=== PATIENT | female | born 1990 | race Caucasian/White ===

== ENCOUNTER 2021-05-23 09:38 | Emergency (ER) | payer BC, SELFPAY ==
[2021-05-23] MEDS ORDERED: MORPHINE 4 MG/ML SYR ONE (10:15)
[2021-05-23] MEDS ORDERED: ONDANSETRON 4 MG/2 ML VIAL ONE (10:15)
[2021-05-23 10:34] LABS: Absolute Lymphocytes (CBC) 1.3 K/uL (0.7-4.9); Basophils % 0.3 % (0-1.3); Hematocrit 40.8 % (36.0-45.0); Lymphocytes % 13.5 % (15.3-44.8); MPV 9.7 fL (7.6-11.3); RBC Red Blood Cell Count 4.46 M/uL (3.86-4.86)
--- NOTE | 2021-05-23 11:10 | RAD REPORT ---
EXAM DESCRIPTION: CTStone Protocol - 05/23/2021 10:51 am CLINICAL HISTORY: abd pain COMPARISON: Abdomen Pelvis W Contrast dated 01/12/2017 TECHNIQUE: CT of the abdomen and pelvis was performed. All CT scans are performed using dose optimization technique as appropriate and may include automated exposure control or mA/KV adjustment according to patient size. FINDINGS: Lower chest: No acute abnormality. Liver: No acute abnormality or suspicious lesions. Biliary: No biliary ductal dilatation. Stomach: No significant focal abnormality. Duodenum: No significant focal abnormality. Pancreas: No significant abnormality. Spleen: No significant abnormality. Adrenal: No suspicious lesions. Kidney/ureter: Mild right-sided hydronephrosis secondary to a 3 mm stone in the right proximal ureter . Other punctate stones are present in the right kidney. Retroperitoneum: No retroperitoneal adenopathy. Vascular: No aneurysm. Bowel: No significant focal abnormality. Peritoneum: No ascites or free air. Bladder: Grossly unremarkable. Reproductive: No adnexal masses. Bones: No acute fracture. Other: n/a IMPRESSION: Mild right-sided hydronephrosis secondary to a 3 mm stone in the right proximal ureter.
[2021-05-23 11:21] LABS: Urine Bacteria <20 /HPF (<20); Urine RBC LOADED /HPF (NONE SEEN)
[2021-05-23] MEDS ORDERED: KETOROLAC 30 MG/ML INJ ONE (11:48)
[2021-05-23] MEDS ORDERED: TAMSULOSIN 0.4 MG SR CAP ONE (11:48)
[2021-05-23] MEDS ORDERED: MAGNESIUM SULFATE 1 gm IVPB 1 GM/100 ML BAG IV ONE (11:49)
[2021-05-23] MEDS ORDERED: NA CHLORIDE 0.9% 250 ML ONE (11:49)
[2021-05-23 12:00] LABS: Albumin 3.6 g/dL (3.4-5.0); Bilirubin Direct 0.2 mg/dL (0-0.2); Bilirubin Total 0.5 mg/dL (0.2-1.0); Potassium 3.3 mmol/L (3.5-5.1); Protein, Total 7.4 g/dL (6.4-8.2)
[2021-05-23] MEDS ORDERED: PROMETHAZINE INJ 25 MG/ML AMP ONE (13:07)
[2021-05-23] MEDS ORDERED: NA CHLORIDE 0.9% 500 ML ONE (14:19)
--- NOTE | 2021-05-23 14:43 | ER ---
Nurse's Notes [facility] Name: Karen Juan Age: 30 yrs Sex: Female : 1990 Arrival Date: 05/23/2021 Time: 09:44 Bed 6 Private MD: Diagnosis: Calculus of ureter;Abdominal pain, unspecified Presentation: 05/23 09:54 Chief complaint: Patient states: Pt. brought by EMS due to severe right lower abdominal jt3 pain that started last night. Pt. also just started her period. Pt. still has appendix. Denies SOB, chest pain, or significant bleeding. Pt. feels nauseated. Alert and oriented x4 on arrival. Coronavirus screen: Vaccine status: Patient reports being unvaccinated. Ebola Screen: Patient negative for fever greater than or equal to 101.5 degrees Fahrenheit, and additional compatible Ebola Virus Disease symptoms Patient denies exposure to infectious person. Patient denies travel to an Ebola-affected area in the 21 days before illness onset. Initial Sepsis Screen: Does the patient meet any 2 criteria? No. Patient's initial sepsis screen is negative. Does the patient have a suspected source of infection? No. Patient's initial sepsis screen is negative. Risk Assessment: Do you want to hurt yourself or someone else? Patient reports no desire to harm self or others. Onset of symptoms was May 22, 2021. 09:54 Method Of Arrival: EMS: [facility] jt3 09:54 Acuity: LUL 3 jt3 10:55 Chief complaint:. jt3 Triage Assessment: 09:57 General: Appears uncomfortable, Behavior is restless. Pain: Complains of pain in jt3 abdomen Radiates to back. GI: Abdomen is tender to palpation in right lower quadrant. 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 - Social history:: Smoking status: Patient denies any tobacco usage or history of. - Family history:: not pertinent. - Hospitalizations: : No recent hospitalization is reported. Screenin:00 Abuse screen: Denies threats or abuse. Denies injuries from another. Nutritional jt3 screening: No deficits noted. Tuberculosis screening: No symptoms or risk factors identified. Fall Risk None identified. Assessment: 09:59 Cardiovascular: No deficits noted. Respiratory: No deficits noted. GI: Reports lower jt3 abdominal pain, Right lower abdominal pain 10/10 that started last night. Alert and oriented x4. 10:17 Reassessment: Pt. got up to commode to urinate and unable to urinate at this time. . jt3 11:47 Reassessment: Patient's pain has improved significantly. Alert and oriented x4. Patient jt3 has been on Telemetry and O2 monitoring. . 14:41 Reassessment: Patient resting comfortably and no longer feels nauseated. . jt3 Vital Signs: 09:54 BP 110 / 61; Pulse 73; Resp 21; Temp 96.5; Pulse Ox 100% on R/A; Weight 86.18 kg; jt3 Height 5 ft. 6 in. (167.64 cm); 10:19 BP 122 / 71; Pulse 62; Resp 16; Pulse Ox 98% on R/A; jt3 11:46 BP 105 / 77; Pulse 61; Resp 18; Pulse Ox 98% on R/A; jt3 14:41 BP 126 / 75; Pulse 67; Resp 17; Pulse Ox 100% on R/A; jt3 09:54 Body Mass Index 30.67 (86.18 kg, 167.64 cm) jt3 ED Course: 09:44 Patient arrived in ED. rn 09:44 Jackson Santos MD is Attending Physician. rn 09:46 Antony Lawson RN is Primary Nurse. jt3 09:49 Patient has correct armband on for positive identification. Bed in low position. Call mh5 light in reach. Side rails up X2. Warm blanket given. policy specialist on. Pulse ox on. NIBP on. 09:57 Triage completed. jt3 09:57 Emesis basin given. jt3 10:00 No provider procedures requiring assistance completed. jt3 10:00 Inserted saline lock: 20 gauge in right antecubital area, using aseptic technique. jt3 14:57 IV discontinued. jt3 Administered Medications: 09:53 Drug: morphine 4 mg Route: IVP; Site: left antecubital; jt3 10:08 Follow up: Response: No adverse reaction jt3 10:08 Follow up: Response: No adverse reaction; Pain is decreased jt3 09:53 Drug: Zofran (Ondansetron) 4 mg Route: IVP; Site: right antecubital; jt3 10:33 CANCELLED ( canceledd): NS 0.9% 500 ml IV at bolus once ch5 11:40 Drug: Magnesium Sulfate 1 grams Route: IVPB; Infused Over: 1 hrs; Site: right jt3 antecubital; 12:51 Follow up: Response: No adverse reaction; IV Intake: 100ml jt3 11:40 Drug: Flomax (tamsulosin) 0.4 mg Route: PO; jt3 11:40 Drug: Ketorolac 30 mg Route: IVP; Site: right antecubital; jt3 12:50 Drug: Phenergan (promethazine) 12.5 mg Route: IVP; Site: right antecubital; jt3 13:56 Drug: NS 0.9% 500 ml Route: IV; Rate: bolus; Site: right antecubital; jt3 Intake: 12:51 IV: 100ml; Total: 100ml. jt3 Outcome: 14:42 Discharge ordered by . rn 14:57 Discharged to home ambulatory. jt3 14:57 Condition: good 14:57 Discharge instructions given to patient. 15:01 Patient left the ED. jt3 Signatures: Jackson Santos MD MD rn Martinez, Maria [facility] Antony Lawson RN RN j Howie Reed RN [facility]
--- NOTE | 2021-05-23 14:43 | EDPHYS ---
Physician Documentation [facility] Name: Karen Juan Age: 30 yrs Sex: Female : 1990 Arrival Date: 05/23/2021 Time: 09:44 Bed 6 Private MD: ED Physician Jackson Santos HPI: 05/23 09:45 This 30 yrs old Female presents to ER via Unassigned with complaints of rn Abdominal pain. 09:45 The patient presents with abdominal pain right lower quadrant, Right lower back. Onset: rn The symptoms/episode began/occurred just prior to arrival. The symptoms do not radiate. Associated signs and symptoms: Pertinent positives: nausea, Pertinent negatives: blood in stools, chest pain, constipation, diarrhea, dysuria, fever, shortness of breath, vaginal discharge, vomiting blood. The symptoms are described as sharp. The symptoms are described as intermittent. Modifying factors: The symptoms are alleviated by nothing. Modifying factors: the symptoms are aggravated by nothing. Severity of pain: At its worst the pain was moderate in the emergency department the pain is unchanged. The patient has not experienced similar symptoms in the past. The patient has not recently seen a physician. Patient reports right lower quadrant and right flank pain as well as right lower back pain that began today, associated with nausea, intermittent and sharp, cannot get comfortable. No history of kidney stones. Does have history of ovarian cysts. Currently on menstrual period. No fever. Went to bed fine last night without any problem.. 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 - Social history:: Smoking status: Patient denies any tobacco usage or history of. - Family history:: not pertinent. - Hospitalizations: : No recent hospitalization is reported. ROS: 09:45 Constitutional: Negative for fever, chills, and weight loss, Eyes: Negative for injury, rn pain, redness, and discharge, Neck: Negative for injury, pain, and swelling, Cardiovascular: Negative for chest pain, palpitations, and edema, Respiratory: Negative for shortness of breath, cough, wheezing, and pleuritic chest pain, Abdomen/GI: Positive for right lower quadrant pain and nausea Back: Positive for right lower back pain : Negative for injury, bleeding, discharge, and swelling, MS/Extremity: Negative for injury and deformity, Skin: Negative for injury, rash, and discoloration, Neuro: Negative for headache, weakness, numbness, tingling, and seizure. 09:45 All other systems are negative. Exam: 09:45 Constitutional: This is a well developed, well nourished patient who is awake, alert, rn appears uncomfortable and rocking back and forth constantly changing position Head/Face: Normocephalic, atraumatic. Eyes: Periorbital areas with no swelling, redness, or edema. Cardiovascular: Regular rate and rhythm. No pulse deficits. Respiratory: No increased work of breathing, no retractions or nasal flaring. Abdomen/GI: Soft, nontender, no peritoneal signs, no abdominal distention Back: No spinal tenderness. No costovertebral tenderness. Full range of motion. Skin: Warm, dry with normal turgor. Normal color with no rashes, no lesions, and no evidence of cellulitis. MS/ Extremity: Pulses equal, no cyanosis. Neurovascular intact. Full, normal range of motion. Equal circumference. Neuro: Awake and alert, GCS 15, oriented to person, place, time, and situation. Vital Signs: 09:54 BP 110 / 61; Pulse 73; Resp 21; Temp 96.5; Pulse Ox 100% on R/A; Weight 86.18 kg; jt3 Height 5 ft. 6 in. (167.64 cm); 10:19 BP 122 / 71; Pulse 62; Resp 16; Pulse Ox 98% on R/A; jt3 11:46 BP 105 / 77; Pulse 61; Resp 18; Pulse Ox 98% on R/A; jt3 14:41 BP 126 / 75; Pulse 67; Resp 17; Pulse Ox 100% on R/A; jt3 09:54 Body Mass Index 30.67 (86.18 kg, 167.64 cm) jt3 MDM: 09:44 Patient medically screened. rn 11:20 ED course: Patient with 3 mm proximal right ureteral stone. Feels better but pain still rn moderate. Will give kidney stone specific therapy now and continue to observe in the ER.. 13:39 ED course: Patient feels better pain down to a 4 or 5 we will give IV fluids and rn continue to observe here given first kidney stone.. 14:41 Differential diagnosis: appendicitis, non-specific abd pain, Ureterolithiasis, urinary rn tract infection. Data reviewed: vital signs, nurses notes, lab test result(s), radiologic studies, CT scan, and as a result, I will discharge patient. Counseling: I had a detailed discussion with the patient and/or guardian regarding: the historical points, exam findings, and any diagnostic results supporting the discharge/admit diagnosis, lab results, radiology results, the need for outpatient follow up, to return to the emergency department if symptoms worsen or persist or if there are any questions or concerns that arise at home. Response to treatment: the patient's symptoms have markedly improved after treatment, and as a result, I will discharge patient. Special discussion: Based on the patient's Hx, exam, and Dx evaluation, there is no indication for emergent surgery or inpatient Tx. It is understood by the patient/guardian that if the Sx's persist or worsen they need to return immediately for re-evaluation. I discussed with the patient/guardian in detail that at this point there is no indication for admission to the hospital. It is understood, however, that if the symptoms persist or worsen the patient needs to return immediately for re-evaluation. ED course: Patient markedly improved, requests to be discharged home. Return precautions given and understood.. 05/23 10:35 Order name: CBC with Automated Diff; Complete Time: 11:20 [facility] 05/23 09:44 Order name: CT Stone Protocol 05/23 11:10 Order name: CT; Complete Time: 11:20 [facility] 05/23 11:22 Order name: Urine Microscopic Only; Complete Time: 12:36 [facility] 05/23 12:00 Order name: Basic Metabolic Panel; Complete Time: 12:36 [facility] 05/23 12:00 Order name: Liver (Hepatic) Function; Complete Time: 12:36 [facility] 05/23 12:00 Order name: Lipase; Complete Time: 12:36 [facility] 05/23 09:44 Order name: IV Saline Lock; Complete Time: :50 rn 05/23 09:44 Order name: Labs collected and sent; Complete Time: :50 05/23 09:44 Order name: Urine Dipstick-Ancillary (obtain specimen); Complete Time: 10:44 rn 05/23 09:44 Order name: Urine Test (obtain specimen); Complete Time: :44 rn 05/23 10:25 Order name: Labs - recollect needed: recollect all labs; Complete Time: 10:44 bd 05/23 11:15 Order name: Labs - recollect needed: recollect c7; Complete Time: 11:41 bd Administered Medications: 09:53 Drug: morphine 4 mg Route: IVP; Site: left antecubital; jt3 10:08 Follow up: Response: No adverse reaction jt3 10:08 Follow up: Response: No adverse reaction; Pain is decreased jt3 09:53 Drug: Zofran (Ondansetron) 4 mg Route: IVP; Site: right antecubital; jt3 10:33 CANCELLED (MD he): NS 0.9% 500 ml IV at bolus once ch5 11:40 Drug: Magnesium Sulfate 1 grams Route: IVPB; Infused Over: 1 hrs; Site: right jt3 antecubital; 12:51 Follow up: Response: No adverse reaction; IV Intake: 100ml jt3 11:40 Drug: Flomax (tamsulosin) 0.4 mg Route: PO; jt3 11:40 Drug: Ketorolac 30 mg Route: IVP; Site: right antecubital; jt3 12:50 Drug: Phenergan (promethazine) 12.5 mg Route: IVP; Site: right antecubital; jt3 13:56 Drug: NS 0.9% 500 ml Route: IV; Rate: bolus; Site: right antecubital; jt3 Disposition Summary: 05/23/21 14:42 Discharge Ordered Location: Home rn Problem: new rn Symptoms: have improved rn Condition: Stable rn Diagnosis - Calculus of ureter rn - Abdominal pain, unspecified rn Followup: rn - With: Private Physician - When: As needed - Reason: Recheck today's complaints, Re-evaluation by your physician Discharge Instructions: - Discharge Summary Sheet rn - Abdominal Pain, Adult rn - Kidney Stones rn - Renal Colic rn - Dietary Guidelines to Help Prevent Kidney Stones rn Forms: - Medication Reconciliation Form rn - Thank You Letter rn - Antibiotic all around patternmaker - Prescription Opioid Use rn Prescriptions: - Flomax 0.4 mg Oral capsule - take 1 capsule by ORAL route once daily Stop taking once you feel that you have rn passed your kidney stone.; 3 capsule; Refills: 0, Product Selection Permitted - ondansetron 4 mg Oral tablet,disintegrating - place 1 tablet by TRANSLINGUAL route every 8 hours As needed; 15 tablet; rn Refills: 0, Product Selection Permitted - Tylenol-Codeine #3 300 mg-30 mg Oral - take 1 tablet by ORAL route every 6-8 hours As needed; 15 tablet; Refills: 0, rn Product Selection Permitted Signatures: Dispatcher [employer] Herlinda Thomason Roman, MD MD rn Tejchmjohn, JOHN PAUL Hardy RN jt3 Howie Reed RN ch5 Corrections: (The following items were deleted from the chart) 10:33 10:31 NS 0.9% 500 ml IV at bolus once ordered. rn ch5
[2021-05-23 15:05] VITALS: TEMP 96.5
[2021-05-23 15:08] VITALS: BP 126/75; O2SAT 100
== END 2021-05-23 15:01 | disposition home or self-care (01) ==
LOC: ER 09:38
DX: N20.1 Calculus of ureter (principal); Z88.0 Allergy status to penicillin
CPT/HCPCS: 36415; 74176; 76377; 80048; 80076; 81015; 83690; 85025; 87086; 87088; 99284; J2405; J2550; J3475; J7040; J7050

== ENCOUNTER 2022-08-15 16:04 | Emergency (ER) | payer OTHER ==
--- OUTSIDE RECORDS SUMMARY | 2022-08-15 16:08 | XMS REPORT | Continuity of Care Document ---
:1990 Author Organization [facility] t Address [address] [place] [address] Care Team Providers Name Role Phone Pcp, Patient Does Not Have A Primary Care Physician +[id number] DIVYA Attending Clinician Unavailable ANNA KILPATRICK Attending Clinician Unavailable Anna Otto Attending Clinician Casper Attending Clinician Unavailable DIVYA Admitting Clinician Unavailable Casper Admitting Clinician Unavailable Payers Payer Name Policy Type Policy Number Effective Date Expiration Date S ource Problems Condition Condition Condition Status Onset Resolution Last Treating Co mments Source Name Details Category Date Date Treatment Clinician Date Contracept Contracept Problem Active M atagor ion using ion Using 1-15 da injectable Injectable 00:00: Me dical contracept Contracept 00 Gr oup lubna lubna medication Medication Contracept Contracept Disease Active U nivers lubna lubna 2-19 ity of management management 00:[place] [facility] BV BV Disease Active Univers (bacterial (bacterial 2-19 it y of vaginosis) vaginosis) 00:[place] [facility] Pain Pain Disease Active Univers pelvic pelvic 2-19 ity of 00:00: [place] [id number] Medical Branch Elevated Elevated Disease Active Unive rs blood blood 2-19 ity of pressure pressure 00:00: [place] reading reading 00 Medical without without Branch diagnosis diagnosis of of hypertensi hypertensi on on Overweight Overweight Disease Active Overview : Univers 11-03 Formattin ity of 00:00: g of this [place] 00 note Medical might be Branch different from the original. 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 Utility Abnormal Abnormal Disease Active Unive rs bleeding bleeding 11-03 ity of in in 00:00: [place] menstrual menstrual 00 [facility] cycle cycle Branch Allergies, Adverse Reactions, Alerts Allergy Allergy Status Severity Reaction(s) Onset Inactive Treating Comm ents Source Name Type Date Date Clinician PENICILL Drug Active Anaphylaxis Uni vers INS Class 11-03 ity of 00:00: [place] 00 Medical Branch Penicill Propensi Active Anaphylaxis U nivers ins ty to 11-03 ity of adverse 00:00: [place] reaction 00 Medical s Branch PENICILL Allergy Active Severe Anaphylaxis [place] INS to da [facility] Medical e Group Social History Social Habit Start Date Stop Date Quantity Comments Source Exposure to 2022-02-01 2022-02-11 Not sure [facility]-CoV-2 00:00:00 10:47:00 [facility] (event) Branch Alcohol intake 2022-02-11 2022-02-11 Current [facility] 00:00:00 00:00:00 non-drinker of [facility] alcohol (finding) [place] Tobacco use and 2013-11-03 2013-11-03 Smokeless tobacco Un iversity of exposure 00:00:00 00:00:00 non-user [facility] Sex Assigned At [birth year] Universit y of 00:00:00 00:00:00 [facility] Smoking Status Start Date Stop Date Source Never smoked tobacco [facility] Medications Ordered Filled Start Stop Current Ordering Indication Dosage Frequency Signature Comments Components Source Medication Medication Date Date Medication? Clinician (SIG) Name Name medroxyprog medroxyprog No medroxypro [place] esterone esterone 1-15 gesterone da 150 mg/mL 150 mg/mL 16:53: 150 mg/mL Medical intramuscul intramuscul 19 intramuscu Group ar ar lar suspensionI suspensionI suspension nject 1 mL nject 1 mL Inject 1 every 3 every 3 mL every 3 months by months by months by intramuscul intramuscul intramuscu ar route. ar route. lar route. ondansetron Yes 4mg Take 1 Univ ers 4 mg tablet 9-25 tablet by ity of 00:00: mouth [place] 00 every 8 Medical (eight) [place] hours as needed for Nausea and Vomiting (N/V). metroNIDAZO Yes [id number] 500mg Take 1 Tab Univers LE (FLAGYL) 2-19 by mouth 2 it y of 500 mg 00:00: (two) [place] tablet 00 times Medical daily. Branch norgestimat Yes [id number] 1{tbl} Take 1 Tab Univers e-ethinyl 2-19 by mouth ity of estradiol 00:00: daily. [place] (ORTHO 00 Medical TRI-CYCLEN Branch LO, 28,) 0.18/0.215 mg/ 0.25 mg-25 mcg tablet Hair, Skin Hair, Skin No Hair, Skin [place] and Nails and Nails and Nails da Advanced Advanced Advanced Med ical one daily one daily one daily Group medroxyprog medroxyprog No 1mL medroxypro [place] esterone esterone gesterone da 150 mg/mL 150 mg/mL 150 mg/mL Medical intramuscul intramuscul intramuscu Group ar ar lar suspension suspension suspension Inject 1 mL Inject 1 mL Inject 1 every 3 every 3 mL every 3 months by months by months by intramuscul intramuscul intramuscu ar route. ar route. lar route. One-A-Day One-A-Day No One-A-Day [place] Womens Womens Womens da Formula one Formula one Formula Medical daily daily one daily Group Immunizations Ordered Filled Immunization Date Status Comments [facility] e Immunization Name Name Rubella 2010-02-13 Completed [place] of 00:00:00 [facility] Td 2006-07-28 Completed [facility] 00:00:00 [facility] Vital Signs Vital Name Observation Time Observation Value Comments Source Oxygen saturation in 2022-02-11 15:48:00 99 /min [facility] Arterial blood by [facility] Pulse oximetry Branch Systolic blood 2022-02-11 14:52:00 128 mm[Hg] Univer sity of pressure [facility] Diastolic blood 2022-02-11 14:52:00 80 mm[Hg] Unive rsity of pressure [facility] Heart rate 2022-02-11 14:52:00 75 /min [facility] [place] [facility] Body temperature 2022-02-11 14:52:00 36.17 [facility] Respiratory rate 2022-02-11 14:52:00 16 /min [facility] Body height 2022-02-11 14:52:00 170.2 cm [facility] Body weight 2022-02-11 14:52:00 92.534 kg [facility] BMI 2022-02-11 14:52:00 31.95 kg/m2 [facility] BP Diastolic 2018-08-11 00:00:00 73 mm[Hg] [facility] Height 2018-08-11 00:00:00 67 [in_i] [facility] BMI (Body Mass 2018-08-11 00:00:00 24.4 kg/m2 [facility]) Group BP Systolic 2018-08-11 00:00:00 122 mm[Hg] [facility] Body Weight 2018-08-11 00:00:00 156 [lb_av] [facility] Procedures Procedure Date / Time Performed Performing Clinician Sour e POCT TEST 2022-02-11 15:20:00 Anna Kilpatrick [facility] CONSENT/REFUSAL FOR 2022-02-11 14:44:37 Doctor Unassigned, No Un [facility] DIAGNOSIS AND Name [facility] TREATMENT Plan of Care Planned Activity Planned Date Details Comments Source Diagnostic Test 2018-08-11 urinalysis, [place] [facility] Pending 00:00:00 dipstick [code = Group urinalysis, dipstick] Diagnostic Test 2018-08-11 test, [place] [facility] Pending 00:00:00 urine [code = Group test, urine] Encounters Start End Encounter Admission Attending Care Care Encounter Source Date/Time Date/Time Type Type Clinicians Facility Department ID 2022-02-22 2022-02-22 Outpatient ETHEL OLIVA [id number] [place] 00:00:00 00:00:00 [facility] 2022-02-11 2022-02-11 Emergency X SIMÓN KILPATRICK [id number] 04 Univers 09:53:00 10:58:00 ANNA hopkins of [facility] 2022-02-11 2022-02-11 Emergency [facility] [id number] [facility] 09:53:00 10:58:00 Annaadryan GONZALES [id number] i ty [facility] [id number] [facility] [id number] [facility] 084 Branch 2020-06-14 2020-06-14 Outpatient G_Pappas [facility] [id number] [place] 02:40:00 02:40:00 1118 da Medical Group 2018-08-11 2018-08-11 [place] [facility] [place] - [id number] [place] 00:00:00 00:00:00 [facility] Jaime 0115 da WHNP: [address] Medical Medic [facility], [place] [address] , Ph. [phone] Results Test Description Test Time Test Comments Results Result Comments Source POCT TEST 2022-02-11 15:20:00 Test Item Value Reference Range Interpretation Comme nts POCT PREG (test code = 1605) negative On board controls acceptable with C Line (test code = 3574) present POCT PREG LOT # (test code = 3575) [id number] POCT PREG TEST DATE (test code = 3576) 05-27-23 Lab Interpretation (test code = 15936-9) Normal [facility]dipstick) panel - Urine 2018-08-11 16:26:08 Test Item Value Reference Range Interpretation Comments Leukocytes (test code = Leukocytes) Negative Nitrite (test code = Nitrite) negative Urobilinogen (test code = 1 Urobilinogen) Protein (test code = Protein) Negative pH (test code = pH) 7.0 Blood (test code = Blood) Large Specific [place] (test code = 1.015 Specific [place]) Ketone (test code = Ketone) Negative Bilirubin (test code = Bilirubin) Negative Glucose (test code = Glucose) Negative Appearance (test code = Appearance) Clear Color (test code = Color) [id number] 16:25:02 Test Item Value Reference Range Interpretation Comments Test (test code = negative Test) [facility]
[2022-08-15 17:08] LABS: Urine Blood 2+ (Negative); Urine Glucose Negative (Negative); Urine Protein Negative (Negative); Urine Specific Gravity 1.015 (1.005-1.030); Urine pH 6.5 (5.0-7.0)
[2022-08-15 17:14] LABS: Urine Bacteria None Seen /HPF (<20); Urine Mucus Slight /HPF (None Seen); Urine RBC <5 /HPF (None Seen)
[2022-08-15 17:22] LABS: Urine Specific Gravity/Preg 1.015 (1.005-1.030)
--- NOTE | 2022-08-15 17:40 | RAD REPORT ---
EXAM DESCRIPTION: US - Transvaginal OB - 08/15/2022 5:33 pm CLINICAL HISTORY: VAGINAL BLEEDING COMPARISON: No comparisons FINDINGS: The uterus is normal sized. No IUP is evident. Endometrial thickness 2 mm. Both ovaries normal with normal Doppler flow. Both adnexa normal. No pelvic ascites. IMPRESSION: Unremarkable study. Advise correlation with serial HCG levels.
[2022-08-15 18:00] LABS: Absolute Lymphocytes (CBC) 1.6 K/uL (0.7-4.9); Hematocrit 39.6 % (36.0-45.0); Lymphocytes % 20.2 % (15.3-44.8); MPV 8.6 fL (7.6-11.3)
[2022-08-15 18:13] LABS: Potassium 3.5 mmol/L (3.5-5.1)
--- NOTE | 2022-08-15 18:51 | ER ---
Nurse's Notes [facility] Name: Karen Juan Age: 31 yrs Sex: Female : 1990 Arrival Date: 08/15/2022 Time: 16:08 Bed 14 Private MD: Diagnosis: Dysfunctional uterine bleeding Presentation: 08/15 16:10 Chief complaint: Patient states: heavy vaginal bleeding since 729 today, is changing a iw pad every hour, is having blood clots, normally does not have heavy periods, not on control , last time she bled like this she was having a miscarriage, her last period before this one was jul 20. Coronavirus screen: At this time, the client does not indicate any symptoms associated with coronavirus-19. Ebola Screen: Patient negative for fever greater than or equal to 101.5 degrees Fahrenheit, and additional compatible Ebola Virus Disease symptoms Patient denies exposure to infectious person. Patient denies travel to an Ebola-affected area in the 21 days before illness onset. No symptoms or risks identified at this time. Initial Sepsis Screen: Does the patient meet any 2 criteria? No. Patient's initial sepsis screen is negative. Does the patient have a suspected source of infection? No. Patient's initial sepsis screen is negative. Risk Assessment: Do you want to hurt yourself or someone else? Patient reports no desire to harm self or others. Onset of symptoms was August 15, 2022. 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 - Social history:: Smoking status: Patient denies any tobacco usage or history of. Screenin:30 [facility] ED Fall Risk Assessment (Adult) History of falling in the last 3 months, 3 including since admission No falls in past 3 months (0 pts) Confusion or Disorientation No (0 pts) Intoxicated or Sedated No (0 pts) Impaired Gait No (0 pts) Mobility Assist Device Used No (0 pt) Altered Elimination Yes (1 pt) Score/Fall Risk Level 0 - 2 = Low Risk. Abuse screen: Denies threats or abuse. Denies injuries from another. Nutritional screening: No deficits noted. Tuberculosis screening: No symptoms or risk factors identified. Assessment: 16:30 General: Appears in no apparent distress. comfortable, Behavior is calm, cooperative, eh3 appropriate for age. Pain: Denies pain. Neuro: Level of Consciousness is awake, alert, obeys commands, Oriented to person, place, time, situation. Cardiovascular: Capillary refill < 3 seconds Patient's skin is warm and dry. Respiratory: Airway is patent Respiratory effort is even, unlabored, Respiratory pattern is regular, symmetrical. GI: No signs and/or symptoms were reported involving the gastrointestinal system. Abdomen is round non-distended. : Urine is clear, blood tinged, Reports vaginal bleeding that is bright red, with clots, heavy flow. EENT: No signs and/or symptoms were reported regarding the EENT system. Derm: No signs and/or symptoms reported regarding the dermatologic system. Skin is pink, warm \T\ dry. Musculoskeletal: No signs and/or symptoms reported regarding the musculoskeletal system. Circulation, motion, and sensation intact. Range of motion: intact in all extremities. 17:30 Reassessment: Patient appears in no apparent distress at this time. Patient and/or 3 family updated on plan of care and expected duration. Pain level reassessed. Patient is alert, oriented x 3, equal unlabored respirations, skin warm/dry/pink. 18:30 Reassessment: Patient appears in no apparent distress at this time. Patient and/or eh3 family updated on plan of care and expected duration. Pain level reassessed. Patient is alert, oriented x 3, equal unlabored respirations, skin warm/dry/pink. Vital Signs: 16:10 BP 118 / 69; Pulse 61; Resp 16; Temp 98.9; Pulse Ox 96% on R/A; Weight 90.72 kg; Height iw 5 ft. 7 in. (170.18 cm); Pain 4/10; 17:30 BP 137 / 61; Pulse 60; Resp 18; Pulse Ox 100% on R/A; eh3 18:30 BP 104 / 71; Pulse 68; Resp 16; Pulse Ox 99% on R/A; eh3 16:10 Body Mass Index 31.32 (90.72 kg, 170.18 cm) ED Course: 16:08 Patient arrived in ED. rg4 16:08 Radha Justin FNP-C is [facility]. snw 16:08 Charlie Jerome MD is Attending Physician. snw 16:13 Triage completed. iw 16:13 Arm band placed on. iw 16:23 Joan Marie, RN is Primary Nurse. eh3 16:30 Patient has correct armband on for positive identification. Bed in low position. Call eh3 light in reach. Side rails up X2. Pulse ox on. NIBP on. Door closed. Noise minimized. Lights dimmed. Warm blanket given. 16:45 Missed attempt(s): 20 gauge in right antecubital area. Bleeding controlled, band aid eh3 applied, catheter tip intact. 17:35 US Transvaginal Ob In Process Unspecified. EDMS 17:49 CBC with Diff Sent. em1 17:49 Basic Metabolic Panel Sent. em1 17:49 Abo/rh Typing Sent. em1 17:49 Initial lab(s) drawn, by ny, sent to lab. Inserted saline lock: 22 gauge in right em1 forearm, using aseptic technique. 18:06 Urine Culture Sent. bc6 18:06 Urine Microscopic Only Sent. 6 19:18 No provider procedures requiring assistance completed. IV discontinued, intact, eh3 bleeding controlled, No redness/swelling at site. Pressure dressing applied. Administered Medications: 18:54 Drug: Ketorolac 30 mg Route: IVP; Site: right wrist; eh3 19:17 Follow up: Response: Pain is decreased eh3 Medication: 19:18 VIS not applicable for this client. eh3 Outcome: 18:50 Discharge ordered by . snw 19:18 Discharged to home ambulatory. eh3 19:18 Condition: stable 19:18 Discharge instructions given to patient, Instructed on discharge instructions, follow up and referral plans. medication usage, Demonstrated understanding of instructions, follow-up care, medications, Prescriptions given X 1. 19:18 Patient left the ED. eh3 Signatures: Dispatcher [employer] EDMS Radha Justin FNP-C DESIGN ENG-Csnw Gabriela Robledo RN RN Jan Song em1 Leesa Keith rg4 Joan Marie, JOHN PAUL RN 3 Tiffanie Sosa 6 Corrections: (The following items were deleted from the chart) 18:55 18:15 BP 137 / 61; Pulse 60bpm; Resp 18bpm; Pulse Ox 100% RA; eh3 eh3
--- NOTE | 2022-08-15 18:51 | EDPHYS ---
Physician Documentation [facility] Name: Karen Juan Age: 31 yrs Sex: Female : 1990 Arrival Date: 08/15/2022 Time: 16:08 Bed 14 Private MD: ED Physician Charlie Jerome HPI: 08/15 18:51 This 31 yrs old Female presents to ER via Ambulatory with complaints of Vaginal snw Bleeding. 18:51 The patient presents with vaginal bleeding that is heavy, with clots. Onset: The snw symptoms/episode began/occurred suddenly, 2 day(s) ago, and became persistent. Associated signs and symptoms: Pertinent positives: vaginal bleeding. Severity of symptoms: At their worst the symptoms were severe, in the emergency department the symptoms are unchanged. The patient's method of control includes nothing. The patient has experienced a previous episode. 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 - Social history:: Smoking status: Patient denies any tobacco usage or history of. ROS: 16:57 Constitutional: Negative for fever, chills, and weight loss, Eyes: Negative for injury, snw pain, redness, and discharge, ENT: Negative for injury, pain, and discharge, Neck: Negative for injury, pain, and swelling, Cardiovascular: Negative for chest pain, palpitations, and edema, Respiratory: Negative for shortness of breath, cough, wheezing, and pleuritic chest pain, Abdomen/GI: Negative for abdominal pain, nausea, vomiting, diarrhea, and constipation, Back: Negative for injury and pain, MS/Extremity: Negative for injury and deformity, Skin: Negative for injury, rash, and discoloration, Neuro: Negative for headache, weakness, numbness, tingling, and seizure. 16:57 : Positive for vaginal bleeding, heavy with clots. Exam: 16:57 Constitutional: This is a well developed, well nourished patient who is awake, alert, snw and in no acute distress. Head/Face: Normocephalic, atraumatic. Eyes: Pupils equal round and reactive to light, extra-ocular motions intact. Lids and lashes normal. Conjunctiva and sclera are non-icteric and not injected. Cornea within normal limits. Periorbital areas with no swelling, redness, or edema. ENT: Nares patent. No nasal discharge, no septal abnormalities noted. Tympanic membranes are normal and external auditory canals are clear. Oropharynx with no redness, swelling, or masses, exudates, or evidence of obstruction, uvula midline. Mucous membranes moist. Neck: Trachea midline, no thyromegaly or masses palpated, and no cervical lymphadenopathy. Supple, full range of motion without nuchal rigidity, or vertebral point tenderness. No Meningismus. Chest/axilla: Normal chest wall appearance and motion. Nontender with no deformity. No lesions are appreciated. Cardiovascular: Regular rate and rhythm with a normal S1 and S2. No gallops, murmurs, or rubs. Normal PMI, no JVD. No pulse deficits. Respiratory: Lungs have equal breath sounds bilaterally, clear to auscultation and percussion. No rales, rhonchi or wheezes noted. No increased work of breathing, no retractions or nasal flaring. Abdomen/GI: Soft, non-tender, with normal bowel sounds. No distension or tympany. No guarding or rebound. No evidence of tenderness throughout. Back: No spinal tenderness. No costovertebral tenderness. Full range of motion. Skin: Warm, dry with normal turgor. Normal color with no rashes, no lesions, and no evidence of cellulitis. MS/ Extremity: Pulses equal, no cyanosis. Neurovascular intact. Full, normal range of motion. Neuro: Awake and alert, GCS 15, oriented to person, place, time, and situation. Cranial nerves II-XII grossly intact. Motor strength 5/5 in all extremities. Sensory grossly intact. Cerebellar exam normal. Normal gait. Psych: Awake, alert, with orientation to person, place and time. Behavior, mood, and affect are within normal limits. Vital Signs: 16:10 BP 118 / 69; Pulse 61; Resp 16; Temp 98.9; Pulse Ox 96% on R/A; Weight 90.72 kg; Height iw 5 ft. 7 in. (170.18 cm); Pain 4/10; 17:30 BP 137 / 61; Pulse 60; Resp 18; Pulse Ox 100% on R/A; eh3 18:30 BP 104 / 71; Pulse 68; Resp 16; Pulse Ox 99% on R/A; eh3 16:10 Body Mass Index 31.32 (90.72 kg, 170.18 cm) iw MDM: 16:11 Patient medically screened. snw 16:54 Differential diagnosis: dysfunctional uterine bleeding, dysmenorrhea, menorrhea, Data snw reviewed: vital signs, nurses notes. 08/15 16:12 Order name: Urine Culture [facility] 08/15 16:12 Order name: Urine Microscopic Only [facility] 08/15 16:43 Order name: Abo/rh Typing; Complete Time: 18:39 [facility] 08/15 16:43 Order name: Basic Metabolic Panel; Complete Time: 18:27 [facility] 08/15 16:43 Order name: CBC with Diff; Complete Time: 18:27 [facility] 08/15 17:08 Order name: Urine Dipstick-Ancillary; Complete Time: 17:20 [facility] 08/15 16:12 Order name: Urine Dipstick-Ancillary (obtain specimen); Complete Time: 18:14 [facility] 08/15 16:12 Order name: Urine Test (obtain specimen); Complete Time: 18:14 [facility] 08/15 16:43 Order name: US Transvaginal Ob; Complete Time: 17:41 [facility] 08/15 16:43 Order name: IV Saline Lock; Complete Time: 17:49 [facility] 08/15 16:43 Order name: Labs collected and sent; Complete Time: 17:49 [facility] 08/15 16:43 Order name: NPO; Complete Time: 17:49 [facility] 08/15 17:18 Order name: Urine --Ancillary (enter results); Complete Time: 17:24 [id number] Administered Medications: 18:54 Drug: Ketorolac 30 mg Route: IVP; Site: right wrist; eh3 19:17 Follow up: Response: Pain is decreased eh3 Disposition Summary: 08/15/22 18:50 Discharge Ordered Location: Home snw Condition: Stable snw Diagnosis - Dysfunctional uterine bleeding snw Followup: snw - With: Emergency Department - When: As needed - Reason: Worsening of condition Followup: snw - With: Private Physician - When: 2 - 3 days - Reason: Recheck today's complaints, Continuance of care, Re-evaluation by your physician Discharge Instructions: - Discharge Summary Sheet snw - Abnormal Uterine Bleeding snw Forms: - Medication Reconciliation Form snw - Thank You Letter snw - Antibiotic Education snw - Prescription Opioid Use snw Prescriptions: - Mobic 7.5 mg Oral Tablet - take 1 tablet by ORAL route once daily take with food; 20 tablet; Refills: 0, snw Product Selection Permitted Signatures: Dispatcher [employer] EDRadha Camargo FNP-C RECRUITING INTERN-Csnw Gabriela Robledo, RN RN iw Joan Marie RN RN eh3
[2022-08-15] MEDS ORDERED: KETOROLAC 30 MG/ML INJ ONE (18:53)
[2022-08-15 20:39] VITALS: TEMP 98.9
[2022-08-15 20:40] VITALS: BP 137/61; O2SAT 100
== END 2022-08-15 19:18 | disposition home or self-care (01) ==
LOC: ER 16:04
DX: N93.8 Other specified abnormal uterine and vaginal bleeding (principal); J45.909 Unspecified asthma, uncomplicated; Z88.0 Allergy status to penicillin
CPT/HCPCS: 36415; 76817; 80048; 81003; 81015; 81025; 85025; 86900; 86901; 87086; 87088; 96374; 99284

== ENCOUNTER → 2023-07-16 | Emergency (ER) | payer OTHER, SELFPAY ==
[~2023-07-16] MED LIST: FAMOTIDINE 20 MG/2 ML VIAL IV ONE; NA CHLORIDE 0.9% 1,000 ML ONE; ONDANSETRON 4 MG/2 ML VIAL ONE
--- OUTSIDE RECORDS SUMMARY | 2023-07-16 09:36 | XMS REPORT | Continuity of Care Document ---
Author Name Unknown Address [address] [facility] [address] [place] [address] [facility] Address [address] [facility] [address] [place] [address] Care Team Providers Care Electric Solderer Name Role Phone PCP, PATIENT DOES NOT HAVE A Primary Care Physic laureano Unavailable BRADEN_F Attending Clinician Unavailable YUNG GUEVARA Attending Clinician Unavailable ADEEL GARCIA Attending Clinician Unavailable Adeel Garcia MD Attending Clinician [phone] PRAVEEN MCCONNELL Attending Clinician Unavailable Praveen Mcconnell MD Attending Clinician [phone] DIVYA Attending Clinician Unavailable SCOTTY KILPATRICK Attending Clinician Unavailable Scotty Otto Attending Clinician [phone] Casper Attending Clinician Unavailable BRADSUNI_Kristin Admitting Clinician Unavailable ADEEL GARCIA Admitting Clinician Unavailable PRAVEEN MCCONNELL Admitting Clinician Unavailable DIVYA Admitting Clinician Unavailable Casper Admitting Clinician Unavailable Payers Payer Name Policy Type Policy Number Effective Date Expirati on Date Source [facility] [id number] [facility] 2 [id number] 2023 00:00:00 [facility] PPO [id number] 2023 00:00:00 Problems Condition Name Condition Details Condition Category Status Onset Date Resolution Date Last Treatment Date Treating Clinician Comments Source History of anxiety state History of Anxiety State Problem Active 2023 00:00: 00 [facility] History of migraine History of Migraine Problem Active 2022-07 00:00: 00 [facility] Contracept ion using injectable contracept lubna medication Contracept ion Using Injectable Contracept lubna Medication Problem Active 115 00:00: 00 [facility] Contracept lubna management Contracept lubna management Disease Active 09-15 00:00: 00 [facility] BV (bacterial vaginosis) BV (bacterial vaginosis) Disease Active 09-15 00:00: 00 [facility] Pain pelvic Pain pelvic Disease Active 09-15 00:00: 00 [facility] Elevated blood pressure reading without diagnosis of hypertensi on Elevated blood pressure reading without diagnosis of hypertensi on Disease Active 09-15 00:00: 00 [facility] Overweight Overweight Disease Active 11-03 00:00: 00 Overview: Formattin g of this note might be different from the original. ICD10 Diagnosis Term Credit Card Analyst Utility [facility] Abnormal bleeding in menstrual cycle Abnormal bleeding in menstrual cycle Disease Active 11-03 00:00: 00 [facility] Allergies, Adverse Reactions, Alerts Allergy Name Allergy Type Status Severity Reaction(s) Onset Date Inactive Date Treating Clinician Comments Source PENICILL INS Drug Class Active Anaphylaxis 11-03 00:00: 00 [facility] Penicill ins Propensi ty to adverse reaction s Active Anaphylaxis 11-03 00:00: 00 [facility] Penicill ins Propensi ty to adverse reaction s Active Anaphylaxis 11-03 00:00: 00 [facility] PENICILL INS Allergy to substanc e Active Angioedema [facility] Social History Social Habit Start Date Stop Date Quantity Comments Source Gender identity [facility] Sexual orientation [facility] Exposure to SARS-CoV-2 (event) 2022-12-03 00:00:00 2022-12-13 10:56:[address] [facility] Alcohol intake 2022-12-13 00:00:00 2022-12-13 00:00:00 Current non-drinker of alcohol (finding) [facility] History of Social function 2022-12-13 00:00:00 2022-12-13 00:00:[address] [facility] Tobacco use and exposure 2013-11-03 00:00:00 2013-11-03 00:00:00 Smokeless tobacco non-user [facility] Sex Assigned At 1990 00:00:00 1990 00:00:[address] [facility] Smoking Status Start Date Stop Date Source Never Smoker [facility] Medications Ordered Medication Name Filled Medication Name Start Date Stop Date Current Medication? Ordering Clinician Indication Dosage Frequency Signature (SIG) Comments Components Source ketorolac (TORADOL) injection 15 mg 02-08 03:15: 00 02-08 02:30 :00 No 15mg 15 mg, Slow IV Push, ONCE, 1 dose, On Fri02/07/23 at 2215, [facility] NaCl 0.9% (NS) bolus infusion 500 mL 02-08 02:30: 00 02-08 03:42 :00 No 500mL at 999 mL/hr, 500 mL, IV Piggyback, ONCE, 1 dose, On Fri02/07/23 at 2130, STAT [facility] acetaminoph en (TYLENOL) tablet 650 mg 12-13 18:45: 00 12-13 18:48 :00 No 650mg 650 mg, Oral, ONCE, 1 dose, On Fri12/13/22 at 1345, [facility] ibuprofen (IBU) tablet 600 mg 12-13 18:45: 00 12-13 18:49 :00 No 600mg 600 mg, Oral, ONCE, 1 dose, On Fri12/13/22 at 1345, [facility] medroxyprog esterone 150 mg/mL intramuscul ar suspensionI nject 1 mL every 3 months by intramuscul ar route. medroxyprog esterone 150 mg/mL intramuscul ar suspensionI nject 1 mL every 3 months by intramuscul ar route. 08-11 16:53: 19 No medroxypro gesterone 150 mg/mL intramuscu lar suspension Inject 1 mL every 3 months by intramuscu lar route. [facility] ondansetron 4 mg tablet 04-21 00:00: 00 Yes 4mg Take 1 tablet by mouth every 8 (eight) hours as needed for Nausea and Vomiting (N/V). [facility] ondansetron 4 mg tablet 04-21 00:00: 00 Yes 4mg Take 1 tablet by mouth every 8 (eight) hours as needed for Nausea and Vomiting (N/V). [facility] ondansetron 4 mg tablet 04-21 00:00: 00 Yes 4mg Take 1 tablet by mouth every 8 (eight) hours as needed for Nausea and Vomiting (N/V). [facility] metroNIDAZO LE (FLAGYL) 500 mg tablet 09-15 00:00: 00 Yes [id number] 500mg Take 1 Tab by mouth 2 (two) times daily. [facility] norgestimat e-ethinyl estradiol (ORTHO TRI-CYCLEN LO, 28,) 0.18/0.215 mg/ 0.25 mg-25 mcg tablet 09-15 00:00: 00 Yes [id number] 1{tbl} Take 1 Tab by mouth daily. [facility] metroNIDAZO LE (FLAGYL) 500 mg tablet 09-15 00:00: 00 Yes [id number] 500mg Take 1 Tab by mouth 2 (two) times daily. [facility] norgestimat e-ethinyl estradiol (ORTHO TRI-CYCLEN LO, 28,) 0.18/0.215 mg/ 0.25 mg-25 mcg tablet 09-15 00:00: 00 Yes [id number] 1{tbl} Take 1 Tab by mouth daily. [facility] metroNIDAZO LE (FLAGYL) 500 mg tablet 09-15 00:00: 00 Yes [id number] 500mg Take 1 Tab by mouth 2 (two) times daily. [facility] norgestimat e-ethinyl estradiol (ORTHO TRI-CYCLEN LO, 28,) 0.18/0.215 mg/ 0.25 mg-25 mcg tablet 09-15 00:00: 00 Yes [id number] 1{tbl} Take 1 Tab by mouth daily. [facility] Zithromax Z-Jean Carlos 250 mg tablet TAKE 2 TABLETS (500 MG) BY ORAL ROUTE ONCE DAILY FOR 1 DAY THEN 1 TABLET (250 MG) BY ORAL ROUTE ONCE DAILY FOR 4 DAYS Zithromax Z-Jean Carlos 250 mg tablet TAKE 2 TABLETS (500 MG) BY ORAL ROUTE ONCE DAILY FOR 1 DAY THEN 1 TABLET (250 MG) BY ORAL ROUTE ONCE DAILY FOR 4 DAYS No Zithromax Z-Jean Carlos 250 mg tablet TAKE 2 TABLETS (500 MG) BY ORAL ROUTE ONCE DAILY FOR 1 DAY THEN 1 TABLET (250 MG) BY ORAL ROUTE ONCE DAILY FOR 4 DAYS [facility] Hair, Skin and Nails Advanced one daily Hair, Skin and Nails Advanced one daily No Hair, Skin and Nails Advanced one daily [facility] medroxyprog esterone 150 mg/mL intramuscul ar suspension Inject 1 mL every 3 months by intramuscul ar route. medroxyprog esterone 150 mg/mL intramuscul ar suspension Inject 1 mL every 3 months by intramuscul ar route. No 1mL medroxypro gesterone 150 mg/mL intramuscu lar suspension Inject 1 mL every 3 months by intramuscu lar route. [facility] One-A-Day Womens Formula one daily One-A-Day Womens Formula one daily No One-A-Day Womens Formula one daily [facility] Vital Signs Vital Name Observation Time Observation Value Comments S ource Height 2023-05-13 00:00:00 67 [in_i] [facility] BP Systolic 2023-05-13 00:00:00 114 mm[Hg] [facility] Body Weight 2023-05-13 00:00:00 3328 [oz_av] [facility] BMI (Body Mass Index) 2023-05-13 00:00:00 32.6 kg/m2 [facility] BP Diastolic 2023-05-13 00:00:00 64 mm[Hg] [facility] Systolic blood pressure 2023-02-08 03:00:00 99 mm[Hg] [facility] Diastolic blood pressure 2023-02-08 03:00:00 83 mm[Hg] [facility] Heart rate 2023-02-08 03:00:00 60 /min [facility] Respiratory rate 2023-02-08 03:00:00 20 /min [facility] Oxygen saturation in Arterial blood by Pulse oximetry 2023-02-08 03:00:00 98 /min [facility] Body temperature 2023-02-08 00:35:[address] [facility] Body height 2023-02-08 00:35:00 170.2 cm [facility] Body weight 2023-02-08 00:35:00 95.255 kg [facility] BMI 2023-02-08 00:35:00 32.89 kg/m2 [facility] Systolic blood pressure 2022-12-13 15:58:00 126 mm[Hg] [facility] Diastolic blood pressure 2022-12-13 15:58:00 78 mm[Hg] [facility] Heart rate 2022-12-13 15:58:00 81 /min [facility] Body temperature 2022-12-13 15:58:[address] [facility] Respiratory rate 2022-12-13 15:58:00 18 /min [facility] Body height 2022-12-13 15:58:00 170.2 cm [facility] Body weight 2022-12-13 15:58:00 97.523 kg [facility] BMI 2022-12-13 15:58:00 33.67 kg/m2 [facility] Oxygen saturation in Arterial blood by Pulse oximetry 2022-12-13 15:58:00 99 /min [facility] Oxygen saturation in Arterial blood by Pulse oximetry 2022-02-11 15:48:00 99 /min [facility] Systolic blood pressure 2022-02-11 14:52:00 128 mm[Hg] [facility] Diastolic blood pressure 2022-02-11 14:52:00 80 mm[Hg] [facility] Heart rate 2022-02-11 14:52:00 75 /min [facility] Body temperature 2022-02-11 14:52:[address] [facility] Respiratory rate 2022-02-11 14:52:00 16 /min [facility] Body height 2022-02-11 14:52:00 170.2 cm [facility] Body weight 2022-02-11 14:52:00 92.534 kg [facility] BMI 2022-02-11 14:52:00 31.95 kg/m2 [facility] BP Diastolic 2018-08-11 00:00:00 73 mm[Hg] [facility] Height 2018-08-11 00:00:00 67 [in_i] [facility] BMI (Body Mass Index) 2018-08-11 00:00:00 24.4 kg/m2 [facility] BP Systolic 2018-08-11 00:00:00 122 mm[Hg] [facility] Body Weight 2018-08-11 00:00:00 156 [lb_av] [facility] Procedures Procedure Date / Time Performed Performing Clinicia n Source MRI, ankle, w/o contrast 2023-05-13 00:00:00 [facility] US OVARY TORSION 2023-02-08 04:21:13 [facility]el [facility] 2023-02-08 01:11:00 Adeel Garcia [facility] COMP. METABOLIC PANEL (85548) 2023-02-08 00:54:[address] [facility] TOTAL BETA HCG ASSAY 2023-02-08 00:54:[address] [facility] CBC WITH DIFF 2023-02-08 00:54:00 Adeel Garcia [facility] NOTICE OF PRIVACY PRACTICES 2023-02-08 00:35:46 Doctor Unassigned, [place] [facility] CONSENT/REFUSAL FOR DIAGNOSIS AND TREATMENT 2023-02-08 00:35:00 Doctor Unassigned, [place] [facility] XR LUMBAR SPINE 3 VW 2022-12-13 18:05:[address] [facility] XR SPINE THORACIC 2 VW 2022-12-13 18:05:[address] [facility] XR CERVICAL SPINE 3 VW 2022-12-13 18:05:[address] [facility] CONSENT/REFUSAL FOR DIAGNOSIS AND TREATMENT 2022-12-13 15:42:52 Doctor Unassigned, [place] [facility] POCT TEST 2022-02-11 15:20:[address] [facility] CONSENT/REFUSAL FOR DIAGNOSIS AND TREATMENT 2022-02-11 14:44:37 Doctor Unassigned, [place] [facility] Plan of Care Planned Activity Planned Date Details Comments Source Diagnostic Test Pending 2018-08-11 00:00:00 urinalysis, dipstick [code = urinalysis, dipstick] [facility] Diagnostic Test Pending 2018-08-11 00:00:00 test, urine [code = test, urine] [facility] Future Scheduled Test Improved r ight ankle pain, and improved URI symptoms. [code = Improved right ankle pain, and improved URI symptoms.] [facility] Instructions Critical access hospital Clinics Encounters Start Date/Time End Date/Time Encounter Type Admission Type Attending Clinicians Care Facility Care Department Encounter ID Source 2023-07-04 00:00:00 2023-07-04 00:00:00 Outpatient BRADEN_F [facility] [id number] 2023-07-03 00:00:00 2023-07-03 00:00:00 Outpatient BRADEN_F [facility] [id number] 2023-06-12 00:00:00 2023-06-12 00:00:00 Outpatient BRADEN_F [facility] [id number] 2023-05-13 00:00:00 2023-05-13 00:00:00 Outpatient BRADEN_F [facility] [id number] 2023-05-13 00:00:00 2023-05-13 00:00:00 NOE Godinez: [address], [address], [place] [address] , Ph. [facility] - [facility] - [facility], [address] [facility] [id number] [facility] 2023-05-09 00:00:00 2023-05-09 00:00:00 Outpatient BRADEN_F [facility] [id number] 2023-02-13 10:30:00 2023-02-13 10:30:00 Outpatient YUNG GUEVARA [id number] Sally Yarbrough 2023-02-07 19:44:00 2023-02-07 23:57:00 Emergency X ADEEL GARCIA [facility] [id number] [facility] 2023-02-07 19:44:00 2023-02-07 23:57:00 Emergency Adeel Garcia [facility] [id number] [facility] 2022-12-13 10:58:00 2022-12-13 14:02:00 Emergency X PRAVEEN MCCONNELL [facility] ERT [id number] [facility] 2022-12-13 10:58:00 2022-12-13 14:02:00 Emergency Praveen Mcconnell [facility] [id number] [facility] 2022-02-22 00:00:00 2022-02-22 00:00:00 Outpatient JAYLEN_ADAN OLIVA [id number] [facility] 2022-02-11 09:53:00 2022-02-11 10:58:00 Emergency X SCOTTY KILPATRICK [facility] ERT [id number] [facility] 2022-02-11 09:53:00 2022-02-11 10:58:00 Emergency Scotty Kilpatrick R [facility] [id number] [facility] 2020-06-14 02:40:00 2020-06-14 02:40:00 Outpatient G_Pappas [facility] [id number] [facility] 2018-08-11 00:00:00 2018-08-11 00:00:00 Brooklyn Sandoval, [facility]: [address] [place] [id number] , Ph. [phone] [facility] [address] [facility] Results Test Description Test Time Test Comments Results Resul t Comments Source TOTAL BETA HCG ASSAY 2023-02-08 01:59:28 BETA HCG<2.39Non-preg nant female and male patients: <5 mIU/mL02/07/2023 8:59 PM [facility] Gestational Age ?Range (mIU/mL) 1-10 ?Weeks ?[id number] Weeks ?[id number]- 22 Weeks ?[id number] 0 Weeks ?[id number] Biotin has been reported to cause a negative bias, interpret results relative to patient's use of biotin. [facility] WITH [id number] 01:16:54* Test Item Value Reference Range Interpretation Comme nts WBC (test code = 6690-2) 8.41 See_Comment [Automated messa ge] The system which generated this result transmitted reference range: 4.30 - 11.10 10*3/?L. The reference range was not used to interpret this result as normal/abnormal. RBC (test code = 789-8) 4.17 See_Comment [Automated [employer] ge] The system which generated this result transmitted reference range: 3.93 - 5.25 10*6/?L. The reference range was not used to interpret this result as normal/abnormal. HGB (test code = 718-7) 13.5 g/dL 11.6-15.0 HCT (test code = 4544-3) 38.1 % 35.7-45.2 MCV (test code = 787-2) 91.4 fL 80.6-95.5 MCH (test code = 785-6) 32.4 pg 25.9-32.8 MCHC (test code = 786-4) 35.4 g/dL 31.6-35.1 H RDW-SD (test code = 89587-2) 39.3 fL 39.0-49.9 RDW-CV (test code = 788-0) 11.9 % 12.0-15.5 L PLT (test code = 777-3) 189 See_Comment [Automated [employer] ge] The system which generated this result transmitted reference range: 166 - 358 10*3/?L. The reference range was not used to interpret this result as normal/abnormal. MPV (test code = 49093-5) 11.1 fL 9.5-12.9 NRBC/100 WBC (test code = 9046312711) 0.0 See_Comment [Automated [employer] ssage] The system which generated this result transmitted reference range: 0.0 - 10.0 /100 WBCs. The reference range was not used to interpret this result as normal/abnormal. NRBC x10^3 (test code = 3611664293) See_Comment [Automated [employer] ge] The system which generated this result transmitted reference range: 10*3/?L. The reference range was not used to interpret this result as normal/abnormal. GRAN MAT (NEUT) % (test code = 770-8) 70.3 % IMM GRAN % (test code = 7249272201) 0.20 % LYMPH % (test code = 736-9) 22.5 % MONO % (test code = 5905-5) 5.6 % EOS % (test code = 713-8) 1.0 % BASO % (test code = 706-2) 0.4 % GRAN MAT x10^3(ANC) (test code = 5200715868) 5.92 10*3/uL 1.88-7.09 IMM GRAN x10^3 (test code = 4077199937) 0.00-0.06 LYMPH x10^3 (test code = 731-0) 1.89 10*3/uL 1.32-3.29 MONO x10^3 (test code = 742-7) 0.47 10*3/uL 0.33-0.92 EOS x10^3 (test code = 711-2) 0.08 10*3/uL 0.03-0.39 BASO x10^3 (test code = 704-7) 0.03 10*3/uL 0.01-0.07 Lab Interpretation (test code = 15275-3) [facility]normal [id number] 15:20:00* Test Item Value Reference Range Interpretation Comme nts POCT PREG (test code = 1605) negative On board controls acceptable with C Line (test code = 3574) present POCT PREG LOT # (test code = 3575) [id number] POCT PREG TEST DATE ( test code = 3576) 05-27-23 Lab Interpretation (test cod e = 30542-2) Normal [facility] macro (dipstick) panel - Urine 2018-08-11 16:26:08* Test Item Value Reference Range Interpretation Comme nts Leukocytes (test code = Leukocytes) Negative Nitrite (test code = Nitrite) negative Urobilinogen (test code = Urobilinogen) 1 Protein (test code = Protein) Negative pH (test code = pH) 7.0 Blood (test code = Blood) Large Specific [place] (test code = Specific [place]) 1.015 Ketone (test code = Ketone) Negative Bilirubin (test code = Bilirubin) Negative Glucose (test code = Glucose) Negative Appearance (test code = Appearance) Clear Color (test code = Color) Yellow [facility] Grouppregnancy test, [id number] 16:25:02* Test Item Value Reference Range Interpretation Comme nts Test (test code = Test) negative [facility]
[2023-07-16 10:19] LABS: Specific Gravity 1.021 (1.005-1.030)
[2023-07-16 10:24] LABS: Absolute Lymphocytes (CBC) 1.3 K/uL (0.7-4.9); Hematocrit 40.3 % (36.0-45.0); Lymphocytes % 29.1 % (15.3-44.8); MCV 91.2 fL (80-100); MPV 8.8 fL (7.6-11.3); Platelets 186 thou/uL (152-406); RBC Red Blood Cell Count 4.42 M/uL (3.86-4.86)
[2023-07-16 10:28] LABS: Specific Gravity 1.021 (1.005-1.030); Transitional Epithelial <5 /HPF (None Seen); Urine Bacteria <20 /HPF (<20); Urine Bilirubin NEGATIVE (Negative); Urine Blood Negative (Negative); Urine Clarity Extremely Turbid (Clear); Urine Color Light-Yellow (Yellow); Urine Glucose NEGATIVE (Negative); Urine Mucus Slight /HPF (None Seen); Urine Protein NEGATIVE (Negative); Urine RBC <5 /HPF (None Seen); Urine Urobilinogen Normal (Normal); Urine pH 7.5 (5.0-7.0)
[2023-07-16 10:28] LABS: Albumin 3.7 g/dL (3.4-5.0); Bilirubin Total 0.5 mg/dL (0.2-1.0); Potassium 3.8 mEq/L (3.5-5.1); Protein, Total 7.2 g/dL (6.4-8.2)
--- NOTE | 2023-07-16 10:58 | ER ---
Nurse's Notes [facility] Name: Karen Juan Age: 32 yrs Sex: Female : 1990 Arrival Date: 07/16/2023 Time: 09:33 Bed 13 Private MD: Diagnosis: Noninfective gastroenteritis and colitis, unspecified Presentation: 07/16 09:41 Chief complaint: Patient states: Pt started taking Metformin on 07/09/23 to treat PCOS rs5 and has been having N/V and diarrhea since. Pt stopped taking Metformin 2 days ago and is still having N/V and diarrhea. Coronavirus screen: At this time, the client does not indicate any symptoms associated with coronavirus-19. Ebola Screen: No symptoms or risks identified at this time. Initial Sepsis Screen: Does the patient meet any 2 criteria? No. Patient's initial sepsis screen is negative. Does the patient have a suspected source of infection? No. Patient's initial sepsis screen is negative. Risk Assessment: Do you want to hurt yourself or someone else? Patient reports no desire to harm self or others. Onset of symptoms was July 09, 2023. 09:41 Method Of Arrival: Ambulatory rs5 09:41 Acuity: LUL 3 rs5 Historical: - Allergies: 09:45 PENICILLINS; rs5 - PMHx: 09:45 Asthma; rs5 09:46 polycystic ovary syndrome; rs5 - PSHx: 09:45 leg; rs5 - Immunization history:: Adult Immunizations unknown. - Social history:: Smoking status: Patient denies any tobacco usage or history of. Screenin:40 [facility] ED Fall Risk Assessment (Adult) History of falling in the last 3 months, rs5 including since admission No falls in past 3 months (0 pts) Confusion or Disorientation No (0 pts) Intoxicated or Sedated No (0 pts) Impaired Gait No (0 pts) Mobility Assist Device Used No (0 pt) Altered Elimination No (0 pt) Score/Fall Risk Level 0 - 2 = Low Risk Oriented to surroundings, Maintained a safe environment. Abuse screen: Denies threats or abuse. Nutritional screening: No deficits noted. Tuberculosis screening: No symptoms or risk factors identified. Assessment: 09:40 General: Appears in no apparent distress. uncomfortable, Behavior is calm, cooperative. rs5 Pain: Complains of pain in lower abdominal pain bilat Pain does not radiate. Pain currently is 3 out of 10 on a pain scale. Quality of pain is described as aching, Pain began 07/09/23 Is continuous. Neuro: Level of Consciousness is awake, alert, obeys commands, Oriented to person, place, time, situation. 09:40 Cardiovascular: Heart tones S1 S2 present Patient's skin is warm and dry. Rhythm is rs5 regular. Respiratory: Airway is patent Respiratory effort is even, unlabored, Respiratory pattern is regular, symmetrical, Breath sounds are clear bilaterally. GI: Abdomen is round non-distended, Bowel sounds present X 4 quads. Abd is soft and non tender X 4 quads. Reports nausea. GI: Reports Pain is 3 out of 10 on a pain scale. : No signs and/or symptoms were reported regarding the genitourinary system. EENT: No signs and/or symptoms were reported regarding the EENT system. Derm: Skin is intact, Skin is pink, warm \T\ dry. Musculoskeletal: Circulation, motion, and sensation intact. Range of motion: intact in all extremities. 10:20 Reassessment: Pt up for discharge. Awaiting fluids to finish prior to discharge per MD rs5 orders. Pt instructed to keep arm straight for fluid adm. Pt demonstrates understanding. 10:50 Reassessment: 200 ml of NS left in normal saline bag. rs5 11:13 Reassessment: Patient and/or family updated on plan of care and expected duration. Pain rs5 level reassessed. Patient is alert, oriented x 3, equal unlabored respirations, skin warm/dry/pink. Vital Signs: 09:05 BP 119 / 84; Pulse 87; Resp 17; Pulse Ox 99% on R/A; rs5 09:41 BP 133 / 56; Pulse 67; Resp 17; Temp 97.8(O); Pulse Ox 99% on R/A; rs5 10:00 BP 112 / 80; Pulse 80; Resp 17; Pulse Ox 99% ; rs5 11:10 BP 116 / 78; Pulse 79; Resp 18; Pulse Ox 99% on R/A; rs5 ED Course: 09:34 Patient arrived in ED. rg4 09:35 Ferny Bear MD is Attending Physician. ec2 09:40 Patient has correct armband on for positive identification. Bed in low position. Call rs5 light in reach. Side rails up X2. 09:41 Solomon Schulz, RN is Primary Nurse. rs5 09:45 Triage completed. rs5 11:13 No provider procedures requiring assistance completed. rs5 11:21 IV discontinued, intact, bleeding controlled, No redness/swelling at site. Pressure rs5 dressing applied. Administered Medications: 10:00 Drug: NS 0.9% IV 1000 ml IV at 1 bolus Per protocol; 1000 mL bolus Route: IV; Rate: 1 rs5 bolus; Site: left antecubital; 10:15 Follow up: Response: No adverse reaction rs5 10:00 Drug: Ondansetron IVP 4 mg IVP once; over 2 minutes Route: IVP; Site: left antecubital; rs5 11:12 Follow up: Response: No adverse reaction; Nausea is decreased rs5 10:00 Drug: Famotidine IVP 20 mg IVP once; dilute with 10 mL 0.9% NaCl; give over 2 minutes rs5 Route: IVP; Site: left antecubital; 10:20 Follow up: Response: No adverse reaction; Pain is decreased rs5 Medication: 11:13 VIS not applicable for this client. rs5 Outcome: 10:57 Discharge ordered by . ec2 11:21 Discharged to home ambulatory, rs5 11:21 Condition: stable 11:21 Discharge instructions given to patient, Instructed on discharge instructions, follow up and referral plans. medication usage, Demonstrated understanding of instructions, follow-up care, medications, Prescriptions given X 1, 11:21 Patient left the ED. rs5 Signatures: Leesa Keith rg4 Solomon Schulz RN RN rs5 Ferny Bear MD MD ec2 Corrections: (The following items were deleted from the chart) 09:46 09:45 PMHx: PCOS (leg); rs5 rs5 09:47 09:45 PMHx: polycystic ovary syndrome (leg); rs5 rs5 11:10 10:20 Reassessment: Pt up for discharge. Awaiting fluids to finish prior to discharge rs5 per MD orders. rs5 11:13 11:00 Reassessment: 200 ml of NS left in normal saline bag. rs5 rs5
--- NOTE | 2023-07-16 10:58 | EDPHYS ---
Physician Documentation [facility] Name: Karen Juan Age: 32 yrs Sex: Female : 1990 Arrival Date: 07/16/2023 Time: 09:33 Bed 13 Private MD: ED Physician Ferny Bear HPI: 07/16 09:49 This 32 yrs old Female presents to ER via Ambulatory with complaints of ec2 Vomiting/Diarrhea. 09:49 Patient arrives today due to concern for nausea, vomiting, diarrhea as well as ec2 decreased p.o. intake. States that she recently started metformin last week, states that since starting the medication she had been experiencing the symptoms. Patient reports no cough or cold symptoms, no fevers or chills, has not been around any known sick contacts. Reports she is taking Pepto-Bismol with minimal alleviation in symptoms. Denies any urinary complaints. Historical: - Allergies: 09:45 PENICILLINS; rs5 - PMHx: 09:45 Asthma; rs5 09:46 polycystic ovary syndrome; rs5 - PSHx: 09:45 leg; rs5 - Immunization history:: Adult Immunizations unknown. - Social history:: Smoking status: Patient denies any tobacco usage or history of. ROS: 09:49 Constitutional: as per hpi ec2 Exam: 09:49 Constitutional: GEN: NAD Head: atraumatic Eyes: EOMI Ears: External ears are ec2 normal. CV: regular rate LUNGS: no respiratory distress, no wheezes, no rales, no rhonchi ABD: non-distended, soft, nontender, no guarding, nonrigid SKIN: no evidence of rashes MSK: no evidence of trauma NEURO: moves all extremities equally Vital Signs: 09:05 BP 119 / 84; Pulse 87; Resp 17; Pulse Ox 99% on R/A; rs5 09:41 BP 133 / 56; Pulse 67; Resp 17; Temp 97.8(O); Pulse Ox 99% on R/A; rs5 10:00 BP 112 / 80; Pulse 80; Resp 17; Pulse Ox 99% ; rs5 11:10 BP 116 / 78; Pulse 79; Resp 18; Pulse Ox 99% on R/A; rs5 MDM: 09:40 Patient medically screened. ec2 09:49 Data reviewed: vital signs. ED course: Patient arrives today for evaluation of nausea, ec2 vomiting, diarrhea. Examination remarkable well-appearing nontoxic individual is otherwise in no acute distress. Will obtain lab work to evaluate hydration status as well as electrolyte issues. Currently considering electrolyte disturbances, anemia, dehydration, reaction to new medication. Will give the patient crystalloid, Zofran as well as Pepcid.. 10:29 ED course: CBC is reassuring. Electrolytes with appropriate levels, appropriate renal ec2 function, urine is noninfectious appearing, negative testing. . 10:34 ED course: On reassessment patient with improvement in symptoms, will finish the ec2 patient's crystalloid bolus and discharged home. Will prescribe Zofran. Presentation consistent with likely medication reaction from her recent metformin. Return precautions given. Instructed follow the primary care doctor as well as her JEWEL STAKER who is prescribing this medication.. 07/16 09:49 Order name: CBC with Diff; Complete Time: 10:27 ec2 07/16 09:49 Order name: CMP; Complete Time: 10: ec2 07/16 09:49 Order name: UAM; Complete Time: 10: ec2 07/16 09:49 Order name: Test, Urine; Complete Time: 10:27 ec2 Administered Medications: 10:00 Drug: NS 0.9% IV 1000 ml IV at 1 bolus Per protocol; 1000 mL bolus Route: IV; Rate: 1 rs5 bolus; Site: left antecubital; 10:15 Follow up: Response: No adverse reaction rs5 10:00 Drug: Ondansetron IVP 4 mg IVP once; over 2 minutes Route: IVP; Site: left antecubital; rs5 11:12 Follow up: Response: No adverse reaction; Nausea is decreased rs5 10:00 Drug: Famotidine IVP 20 mg IVP once; dilute with 10 mL 0.9% NaCl; give over 2 minutes rs5 Route: IVP; Site: left antecubital; 10:20 Follow up: Response: No adverse reaction; Pain is decreased rs5 Disposition Summary: 07/16/23 10:57 Discharge Ordered Notes: Location: Home ec2 Problem: new ec2 Symptoms: have improved ec2 Condition: Stable ec2 Diagnosis - Noninfective gastroenteritis and colitis, unspecified ec2 Followup: ec2 - With: Private Physician - When: - Reason: Recheck today's complaints Discharge Instructions: - Discharge Summary Sheet ec2 - Diarrhea, Adult ec2 Forms: - Work release form ll1 - Medication Reconciliation Form ec2 - Thank You Letter ec2 - Antibiotic Education ec2 - Prescription Opioid Use ec2 - Patient Portal Instructions ec2 - Leadership Thank You Letter ec2 Prescriptions: - Zofran 4 mg Oral Tablet - take 1 tablet ORAL route every 12 hours As needed; 20 tablet; Refills: 0, ec2 Product Selection Permitted Signatures: Dispatcher [employer] Solomon Bennett RN RN rs5 Ferny Bear MD MD ec2 Corrections: (The following items were deleted from the chart) 09:46 09:45 PMHx: PCOS (leg); rs5 rs5 09:47 09:45 PMHx: polycystic ovary syndrome (leg); rs5 rs5
[2023-07-16 11:47] VITALS: BP 116/78; TEMP 97.8; O2SAT 99
== END ==
LOC: ER 09:33
DX: K52.9 Noninfective gastroenteritis and colitis, unspecified (principal); Z88.0 Allergy status to penicillin
CPT/HCPCS: 36415; 80053; 81001; 81025; 85025; 96374; 96375; 99284; J2405; J7030

== ENCOUNTER → 2023-07-24 | Emergency (ER) | payer SELFPAY ==
[~2023-07-24] MED LIST changes: +ACETAMINOPHEN 500 MG TAB ONE; -FAMOTIDINE 20 MG/2 ML VIAL IV ONE; -NA CHLORIDE 0.9% 1,000 ML ONE; -ONDANSETRON 4 MG/2 ML VIAL ONE
--- OUTSIDE RECORDS SUMMARY | 2023-07-24 19:35 | XMS REPORT | Continuity of Care Document ---
Author Name Unknown Address [address] [facility] [address] [place] [address] [facility] Address [address] [facility] [address] [place] [address] Care Team Providers Care Time Clerk Name Role Phone PCP, PATIENT DOES NOT HAVE A Primary Care Physic laureaon Unavailable BRADEN_F Attending Clinician Unavailable YUNG GUEVARA Attending Clinician Unavailable ADEEL GARCIA Attending Clinician Unavailable Adeel aGrcia MD Attending Clinician [phone] PRAVEEN MCCONNELL Attending Clinician Unavailable Praveen Mcconnell MD Attending Clinician [phone] DIVYA Attending Clinician Unavailable SCOTTY KILPATRICK Attending Clinician Unavailable Scotty Otto Attending Clinician [phone] Casper Attending Clinician Unavailable BRADSUNI_Kristin Admitting Clinician Unavailable ADEEL GARCIA Admitting Clinician Unavailable PRAVEEN MCCONNELL Admitting Clinician Unavailable DIVYA Admitting Clinician Unavailable Casper Admitting Clinician Unavailable Payers Payer Name Policy Type Policy Number Effective Date Expirati on Date Source [facility] [id number] [facility] 2 [id number] 2023 00:00:00 [facility] PPO [id number] 2023 00:00:00 Problems Condition Name Condition Details Condition Category Status Onset Date Resolution Date Last Treatment Date Treating Clinician Comments Source History of anxiety state History of Anxiety State Problem Active 2023 00:00: 00 [facility] History of migraine History of Migraine Problem Active 2022-07 00:00: 00 [facility] Contracept ion using injectable contracept lubna medication Contracept ion Using Injectable Contracept lubna Medication Problem Active 115 00:00: 00 [facility] Contracept lubna management Contracept lubna management Disease Active 09-15 00:00: 00 [facility] BV (bacterial vaginosis) BV (bacterial vaginosis) Disease Active 09-15 00:00: 00 [facility] Pain pelvic Pain pelvic Disease Active 09-15 00:00: 00 [facility] Elevated blood pressure reading without diagnosis of hypertensi on Elevated blood pressure reading without diagnosis of hypertensi on Disease Active 09-15 00:00: 00 [facility] Overweight Overweight Disease Active 11-03 00:00: 00 Overview: Formattin g of this note might be different from the original. ICD10 Diagnosis Term [employer] Utility [facility] Abnormal bleeding in menstrual cycle Abnormal bleeding in menstrual cycle Disease Active 11-03 00:00: 00 [facility] Allergies, Adverse Reactions, Alerts Allergy Name Allergy Type Status Severity Reaction(s) Onset Date Inactive Date Treating Clinician Comments Source PENICILL INS Drug Class Active Anaphylaxis 11-03 00:00: 00 [facility] Penicill ins Propensi ty to adverse reaction s Active Anaphylaxis 11-03 00:00: 00 [facility] Penicill ins Propensi ty to adverse reaction s Active Anaphylaxis 11-03 00:00: 00 [facility] PENICILL INS Allergy to substanc e Active Angioedema [facility] Social History Social Habit Start Date Stop Date Quantity Comments Source Gender identity [facility] Sexual orientation U [facility] Exposure to SARS-CoV-2 (event) 2022-12-03 00:00:00 2022-12-13 10:56:00 Not sure [facility] Alcohol intake 2022-12-13 00:00:00 2022-12-13 00:00:00 Current non-drinker of alcohol (finding) [facility] History of Social function 2022-12-13 00:00:00 2022-12-13 00:00:00 [facility] Tobacco use and exposure 2013-11-03 00:00:00 2013-11-03 00:00:00 Smokeless tobacco non-user [facility] Sex Assigned At 1990 00:00:00 1990 00:00:00 [facility] Smoking Status Start Date Stop Date Source Never Smoker [facility] Medications Ordered Medication Name Filled Medication Name Start Date Stop Date Current Medication? Ordering Clinician Indication Dosage Frequency Signature (SIG) Comments Components Source ketorolac (TORADOL) injection 15 mg 02-08 03:15: 00 02-08 02:30 :00 No 15mg 15 mg, Slow IV Push, ONCE, 1 dose, On Fri02/07/23 at 2215, [facility] NaCl 0.9% (NS) bolus infusion 500 mL 02-08 02:30: 00 02-08 03:42 :00 No 500mL at 999 mL/hr, 500 mL, IV Piggyback, ONCE, 1 dose, On Fri02/07/23 at 2130, STAT [facility] acetaminoph en (TYLENOL) tablet 650 mg 12-13 18:45: 00 12-13 18:48 :00 No 650mg 650 mg, Oral, ONCE, 1 dose, On Fri12/13/22 at 1345, [facility] ibuprofen (IBU) tablet 600 mg 12-13 18:45: 00 12-13 18:49 :00 No 600mg 600 mg, Oral, ONCE, 1 dose, On Fri12/13/22 at 1345, [facility] medroxyprog esterone 150 mg/mL intramuscul ar suspensionI nject 1 mL every 3 months by intramuscul ar route. medroxyprog esterone 150 mg/mL intramuscul ar suspensionI nject 1 mL every 3 months by intramuscul ar route. 08-11 16:53: 19 No medroxypro gesterone 150 mg/mL intramuscu lar suspension Inject 1 mL every 3 months by intramuscu lar route. [facility] ondansetron 4 mg tablet 04-21 00:00: 00 Yes 4mg Take 1 tablet by mouth every 8 (eight) hours as needed for Nausea and Vomiting (N/V). [facility] ondansetron 4 mg tablet 04-21 00:00: 00 Yes 4mg Take 1 tablet by mouth every 8 (eight) hours as needed for Nausea and Vomiting (N/V). [facility] ondansetron 4 mg tablet 04-21 00:00: 00 Yes 4mg Take 1 tablet by mouth every 8 (eight) hours as needed for Nausea and Vomiting (N/V). [facility] metroNIDAZO LE (FLAGYL) 500 mg tablet 09-15 00:00: 00 Yes [id number] 500mg Take 1 Tab by mouth 2 (two) times daily. [facility] norgestimat e-ethinyl estradiol (ORTHO TRI-CYCLEN LO, 28,) 0.18/0.215 mg/ 0.25 mg-25 mcg tablet 09-15 00:00: 00 Yes [id number] 1{tbl} Take 1 Tab by mouth daily. [facility] metroNIDAZO LE (FLAGYL) 500 mg tablet 09-15 00:00: 00 Yes [id number] 500mg Take 1 Tab by mouth 2 (two) times daily. [facility] norgestimat e-ethinyl estradiol (ORTHO TRI-CYCLEN LO, 28,) 0.18/0.215 mg/ 0.25 mg-25 mcg tablet 09-15 00:00: 00 Yes [id number] 1{tbl} Take 1 Tab by mouth daily. [facility] metroNIDAZO LE (FLAGYL) 500 mg tablet 09-15 00:00: 00 Yes [id number] 500mg Take 1 Tab by mouth 2 (two) times daily. [facility] norgestimat e-ethinyl estradiol (ORTHO TRI-CYCLEN LO, 28,) 0.18/0.215 mg/ 0.25 mg-25 mcg tablet 09-15 00:00: 00 Yes [id number] 1{tbl} Take 1 Tab by mouth daily. [facility] Zithromax Z-Jean Carlos 250 mg tablet TAKE [...] ORAL ROUTE ONCE DAILY FOR 4 DAYS [facility] Hair, Skin and Nails Advanced one daily Hair, Skin and Nails Advanced one daily No Hair, Skin and Nails Advanced one daily [facility] medroxyprog esterone 150 [...] daily No One-A-Day Womens Formula one daily [facility] Vital Signs Vital Name Observation Time Observation Value Comments S ource Height 2023-05-13 00:00:00 67 [in_i] [facility] BP Systolic 2023-05-13 00:00:00 114 mm[Hg] [facility] Body Weight 2023-05-13 00:00:00 3328 [oz_av] [facility] BMI (Body Mass Index) 2023-05-13 00:00:00 32.6 kg/m2 [facility] BP Diastolic 2023-05-13 00:00:00 64 mm[Hg] [facility] Systolic blood pressure 2023-02-08 03:00:00 99 mm[Hg] [facility] Diastolic blood pressure 2023-02-08 03:00:00 83 mm[Hg] [facility] Heart rate 2023-02-08 03:00:00 60 /min [facility] Respiratory rate 2023-02-08 03:00:00 20 /min [facility] Oxygen saturation in Arterial blood by Pulse oximetry 2023-02-08 03:00:00 98 /min [facility] Body temperature 2023-02-08 00:35:00 37.22 Rhonda [facility] Body height 2023-02-08 00:35:00 170.2 cm [facility] Body weight 2023-02-08 00:35:00 95.255 kg [facility] BMI 2023-02-08 00:35:00 32.89 kg/m2 [facility] Systolic blood pressure 2022-12-13 15:58:00 126 mm[Hg] [facility] Diastolic blood pressure 2022-12-13 15:58:00 78 mm[Hg] [facility] Heart rate 2022-12-13 15:58:00 81 /min [facility] Body temperature 2022-12-13 15:58:00 36.67 Rhonda [facility] Respiratory rate 2022-12-13 15:58:00 18 /min [facility] Body height 2022-12-13 15:58:00 170.2 cm [facility] Body weight 2022-12-13 15:58:00 97.523 kg [facility] BMI 2022-12-13 15:58:00 33.67 kg/m2 [facility] Oxygen saturation in Arterial blood by Pulse oximetry 2022-12-13 15:58:00 99 /min [facility] Oxygen saturation in Arterial blood by Pulse oximetry 2022-02-11 15:48:00 99 /min [facility] Systolic blood pressure 2022-02-11 14:52:00 128 mm[Hg] [facility] Diastolic blood pressure 2022-02-11 14:52:00 80 mm[Hg] [facility] Heart rate 2022-02-11 14:52:00 75 /min [facility] Body temperature 2022-02-11 14:52:00 36.17 Rhonda [facility] Respiratory rate 2022-02-11 14:52:00 16 /min [facility] Body height 2022-02-11 14:52:00 170.2 cm [facility] Body weight 2022-02-11 14:52:00 92.534 kg [facility] BMI 2022-02-11 14:52:00 31.95 kg/m2 [facility] BP Diastolic 2018-08-11 00:00:00 73 mm[Hg] [facility] Height 2018-08-11 00:00:00 67 [in_i] [facility] BMI (Body Mass Index) 2018-08-11 00:00:00 24.4 kg/m2 [facility] BP Systolic 2018-08-11 00:00:00 122 mm[Hg] [facility] Body Weight 2018-08-11 00:00:00 156 [lb_av] [facility] Procedures Procedure Date / Time Performed Performing Clinicia n Source MRI, ankle, w/o contrast 2023-05-13 00:00:00 [facility] US OVARY TORSION 2023-02-08 04:21:13 [facility]INALYSIS 2023-02-08 01:11:00 Adeel Garcia [facility] COMP. METABOLIC PANEL ([id number]) 2023-02-08 00:54:00 Adeel Garcia [facility] TOTAL BETA HCG ASSAY 2023-02-08 00:54:00 Adeel Garcia [facility] CBC WITH DIFF 2023-02-08 00:54:00 Adeel Garcia [facility] NOTICE OF PRIVACY PRACTICES 2023-02-08 00:35:46 Doctor Unassigned, [place] [facility] CONSENT/REFUSAL FOR DIAGNOSIS AND TREATMENT 2023-02-08 00:35:00 Doctor Unassigned, [place] [facility] XR LUMBAR SPINE 3 VW 2022-12-13 18:05:59 Praveen Mcconnell [facility] XR SPINE THORACIC 2 VW 2022-12-13 18:05:59 Elisa Mcconnell [facility] XR CERVICAL SPINE 3 VW 2022-12-13 18:05:59 Elisa Mcconnell [facility] CONSENT/REFUSAL FOR DIAGNOSIS AND TREATMENT 2022-12-13 15:42:52 Doctor Unassigned, [place] [facility] POCT TEST 2022-02-11 15:20:00 Scotty Kilpatrick [facility] CONSENT/REFUSAL FOR DIAGNOSIS AND TREATMENT 2022-02-11 14:44:37 Doctor Unassigned, [place] [facility] Plan of Care Planned Activity Planned Date Details Comments Source Diagnostic Test Pending 2018-08-11 00:00:00 urinalysis, dipstick [code = urinalysis, dipstick] [facility] Diagnostic Test Pending 2018-08-11 00:00:00 test, urine [code = test, urine] [facility] Future Scheduled Test Improved r ight ankle pain, and improved URI symptoms. [code = Improved right ankle pain, and improved URI symptoms.] [facility] Instructions [facility] Clinics Encounters Start Date/Time End Date/Time Encounter Type Admission Type Attending Clinicians Care Facility Care Department Encounter ID Source 2023-07-04 00:00:00 2023-07-04 00:00:00 Outpatient BRADEN_F [facility] [id number] 2023-07-03 00:00:00 2023-07-03 00:00:00 Outpatient BRADEN_F [facility] [id number] 2023-06-12 00:00:00 2023-06-12 00:00:00 Outpatient BRADEN_F [facility] [id number] 2023-05-13 00:00:00 2023-05-13 00:00:00 Outpatient BRADEN_F [facility] [id number] 2023-05-13 00:00:00 2023-05-13 00:00:00 NOE Godinez: [address], [address], [place] [address] , [address] [facility], [facility] [facility] [id number] [facility] 2023-05-09 00:00:00 2023-05-09 00:00:00 Outpatient BRADEN_F [facility] [id number] 2023-02-13 10:30:00 2023-02-13 10:30:00 Outpatient YUNG GUEVARA [id number] Sally Yarbrough 2023-02-07 19:44:00 2023-02-07 23:57:00 Emergency X ADEEL GARCIA [facility] ERT [id number] [facility] 2023-02-07 19:44:00 2023-02-07 23:57:00 Emergency Adeel Garcia [facility] [id number] [facility] 2022-12-13 10:58:00 2022-12-13 14:02:00 Emergency X PRAVEEN MCCONNELL [facility] ERT [id number] [facility] 2022-12-13 10:58:00 2022-12-13 14:02:00 Emergency Praveen Mcconnell [facility] [id number] [facility] 2022-02-22 00:00:00 2022-02-22 00:00:00 Outpatient JAYLEN_ADAN OLIVA [id number] [facility] Outre [facility] Program 2022-02-11 09:53:00 2022-02-11 10:58:00 Emergency X SCOTTY KILPATRICK [facility] ERT [id number] [facility] 2022-02-11 09:53:00 2022-02-11 10:58:00 Emergency Scotty Kilpatrick R [facility] [id number] [facility] 2020-06-14 02:40:00 2020-06-14 02:40:00 Outpatient G_Pappas [facility] [id number] Medical [facility] 2018-08-11 00:00:00 2018-08-11 00:00:00 Brooklyn Sandoval, [facility]: [address] [place] [id number] , Ph. [phone] [facility] [address] [facility] Results Test Description Test Time Test Comments Results Resul t Comments Source TOTAL BETA HCG ASSAY 2023-02-08 01:59:28 BETA HCG<2.39Non-preg nant female and male patients: <5 mIU/mL02/07/2023 8:59 PM [facility] Gestational Age ?Range (mIU/mL) 1-10 ?Weeks ?[id number] Weeks ?[id number]- 22 Weeks ?[id number] 0 Weeks ?[id number] Biotin has been reported to cause a negative bias, interpret results relative to patient's use of biotin. [facility] WITH [id number] 01:16:54* Test Item Value Reference Range Interpretation Comme nts WBC (test code = 6690-2) 8.41 See_Comment [Automated messa ge] The system which generated this result transmitted reference range: 4.30 - 11.10 10*3/?L. The reference range was not used to interpret this result as normal/abnormal. RBC (test code = 789-8) 4.17 See_Comment [Automated unamiaa ge] The system which generated this result [...] g/dL 31.6-35.1 H RDW-SD (test code = 65796-0) 39.3 fL 39.0-49.9 RDW-CV (test code = 788-0) 11.9 % 12.0-15.5 L PLT (test code = 777-3) 189 See_Comment [Automated unamiaa ge] The system which generated this result transmitted reference range: 166 - 358 10*3/?L. The reference range was not used to interpret this result as normal/abnormal. MPV (test code = 94842-6) 11.1 fL 9.5-12.9 NRBC/100 WBC (test code = 9324218917) 0.0 See_Comment [Automated [employer] ssage] The system which generated this result transmitted reference range: 0.0 - 10.0 /100 WBCs. The reference range was not used to interpret this result as normal/abnormal. NRBC x10^3 (test code = 2310078183) See_Comment [Automated unamiaa ge] The system which generated this result transmitted reference range: 10*3/?L. The reference range was not used to interpret this result as normal/abnormal. GRAN MAT (NEUT) % (test code = 770-8) 70.3 % IMM GRAN % (test code = 5922520562) 0.20 % LYMPH % (test code = 736-9) 22.5 % MONO % (test code = 5905-5) 5.6 % EOS % (test code = 713-8) 1.0 % BASO % (test code = 706-2) 0.4 % GRAN MAT x10^3(ANC) (test code = 8185572601) 5.92 10*3/uL 1.88-7.09 IMM GRAN x10^3 (test code = 8949775024) 0.00-0.06 LYMPH x10^3 (test code = 731-0) 1.89 10*3/uL 1.32-3.29 MONO x10^3 (test code = 742-7) 0.47 10*3/uL 0.33-0.92 EOS x10^3 (test code = 711-2) 0.08 10*3/uL 0.03-0.39 BASO x10^3 (test code = 704-7) 0.03 10*3/uL 0.01-0.07 Lab Interpretation (test code = 96593-3) [facility]normal [id number] [facility]:20:00* Test Item Value Reference Range Interpretation Comme nts POCT PREG (test code = 1605) negative On board controls acceptable with C Line (test code = 3574) present POCT PREG LOT # (test code = 3575) [id number] POCT PREG TEST DATE ( test code = 3576) 05-27-23 Lab Interpretation (test cod e = 72107-4) Normal [facility] macro (dipstick) panel - Urine 2018-08-11 16:26:08* Test Item Value Reference Range Interpretation Comme nts Leukocytes (test code = Leukocytes) Negative Nitrite (test code = Nitrite) negative Urobilinogen (test code = Urobilinogen) 1 Protein (test code = Protein) Negative pH (test code = pH) 7.0 Blood (test code = Blood) Large Specific Stokes (test code = Specific Stokes) 1.015 Ketone (test code = Ketone) Negative Bilirubin (test code = Bilirubin) Negative Glucose (test code = Glucose) Negative Appearance (test code = Appearance) Clear Color (test code = Color) Yellow [facility] Grouppregnancy test, [id number] 16:25:02* Test Item Value Reference Range Interpretation Comme nts Test (test code = Test) negative [facility]
[2023-07-24 20:28] LABS: SARS-CoV-2 Antigen Rapid Res Negative (Negative)
--- NOTE | 2023-07-24 20:45 | RAD REPORT ---
EXAM DESCRIPTION: RAD - Chest Pa And Lat (2 Views) - 07/24/2023 8:36 pm CLINICAL HISTORY: Chest pain;Congestion;Cough COMPARISON: <Comparisons> FINDINGS: Lines: None. Lungs: No evidence of edema or pneumonia. Pleural: No significant pleural effusions or pneumothorax. Cardiac: The heart size is within normal limits. Mediastinum: Within normal limits. Bones: No acute fractures. Other: None IMPRESSION: No acute cardiopulmonary disease.
--- NOTE | 2023-07-24 20:48 | EDPHYS ---
Physician Documentation [facility] Name: Karen Juan Age: 32 yrs Sex: Female : 1990 Arrival Date: 07/24/2023 Time: 19:31 Bed 10 Private MD: ED Physician Ferny Bear HPI: 07/25 00:11 This 32 yrs old Female presents to ER via Ambulatory with complaints of Fever, cough, sb4 FLS. 00:27 Patient states she woke up this morning feeling poorly. Reports a cough, nasal sb4 congestion, fever. Denies any sick contacts. No GI symptoms, no nausea vomiting diarrhea. No history of asthma. Denies any chest pain or shortness of breath. States she took a COVID test at home and it was negative. She is also complaining of bilateral ear pain. 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 - Social history:: Smoking status: Patient denies any tobacco usage or history of. ROS: 07/25 00:27 Cardiovascular: Negative for chest pain, palpitations, and edema, sb4 Constitutional: Positive for body aches, chills, fever, ENT: Positive for sinus congestion, sore throat, Respiratory: Positive for cough, All other systems are negative, Exam: 00:27 Constitutional: This is a well developed, well nourished patient who is awake, alert, sb4 and in no acute distress. Head/Face: Normocephalic, atraumatic. Eyes: Extra-ocular motions intact. Periorbital areas with no swelling, redness, or edema. ENT: Mucous membranes moist. Cardiovascular: Regular rate and rhythm with a normal S1 and S2. Respiratory: Lungs have equal breath sounds bilaterally, clear to auscultation and percussion. No rales, rhonchi or wheezes noted. No increased work of breathing, no retractions or nasal flaring. Abdomen/GI: Soft, non-tender, no distension. Skin: Warm, dry with normal turgor. Normal color with no rashes, no lesions, and no evidence of cellulitis. MS/ Extremity: Pulses equal, no cyanosis. Neurovascular intact. Full, normal range of motion. Neuro: Awake and alert, GCS 15, oriented to person, place, time, and situation. Motor strength 5/5 in all extremities. Sensory grossly intact. 00:29 ENT: Ear canal(s): erythema, that is moderate, bilaterally, Patient withdraws to pain sb4 when inserting otoscope into ear canal, Vital Signs: 07/24 19:43 BP 132 / 82; Pulse 113; Resp 18 S; Temp 100.5(O); Pulse Ox 98% on R/A; Weight 95.25 kg; jb4 Height 5 ft. 6 in. ; Pain 0/10; 20:13 BP 110 / 77; Pulse 118; Resp 20; Pulse Ox 99% ; tl4 21:13 BP 109 / 55; Pulse 106; Resp 16; Temp 98.3(O); Pulse Ox 99% on R/A; tl4 19:43 Body Mass Index 33.89 (95.25 kg, 167.64 cm) jb4 19:43 Pain Scale: Adult jb4 MDM: 19:46 Patient medically screened. sb4 07/25 00:27 Differential diagnosis: viral Infection, bacterial infection, URI. Data reviewed: vital sb4 signs, nurses notes, lab test result(s), radiologic studies, and as a result, I will discharge patient. Counseling: I had a detailed discussion with the patient and/or guardian regarding the historical points, exam findings, and any diagnostic results supporting the discharge/admit diagnosis, lab results, radiology results, to return to the emergency department if symptoms worsen or persist or if there are any questions or concerns that arise at home. 07/24 19:56 Order name: SARS RAPID; Complete Time: 20:31 sb4 07/24 19:56 Order name: Flu; Complete Time: 20:44 sb4 07/24 19:54 Order name: Chest Pa And Lat (2 Views) XRAY; Complete Time: 20:47 sb4 Administered Medications: 07/24 20:12 Drug: Acetaminophen PO 1000 mg PO once Route: PO; tl4 21:14 Follow up: Response: No adverse reaction tl4 Disposition Summary: 07/24/23 20:48 Discharge Ordered Notes: Location: Home sb4 Problem: new sb4 Symptoms: have improved sb4 Condition: Stable sb4 Diagnosis - Diffuse otitis externa, bilateral sb4 - Influenza B sb4 Followup: sb4 - With: Emergency Department - When: As needed - Reason: Trouble breathing, Worsening of condition Discharge Instructions: - Discharge Summary Sheet sb4 - Otitis Externa, [id number] sb4 - Influenza, Adult, [id number] sb4 Forms: - Work release form sb4 - Medication Reconciliation Form sb4 - Thank You Letter sb4 - Antibiotic Education sb4 - Prescription Opioid Use sb4 - Patient Portal Instructions sb4 - Leadership Thank You Letter sb4 Prescriptions: - ofloxacin 0.3 % Otic drops - instill 10 drop OTIC route daily for 7 days; 100 milliliter; Refills: 0, sb4 Product Selection Permitted - Tamiflu 75 mg Oral capsule - take 1 tablet ORAL route every 12 hours for 5 days; 10 tablet; Refills: 0, sb4 Product Selection Permitted Addendum: 07/26/2023 21:13 I was immediately available for consultation during this patient's visit. I did not e c2 personally see the patient or guide the patient's care. . Signatures: Dispatcher [employer] [facility] Thor Muro RN RN jb4 Macarena Hines, PAElizabethC PAElizabethC sb4 Ferny Bear MD MD ec2 LogWallace payan tl4 Corrections: (The following items were deleted from the chart) 07/24 20:39 19:54 COVID-19/FLU A+B+MOL.LAB.BRZ ordered. [facility] 07/25 00:29 00:27 Patient states she woke up this morning feeling poorly. Reports a cough, nasal sb4 congestion, fever. Denies any sick contacts. No GI symptoms, no nausea vomiting diarrhea. No history of asthma. Denies any chest pain or shortness of breath. States she took a COVID test at home and it was negative. sb4
--- NOTE | 2023-07-24 20:48 | ER ---
Nurse's Notes [facility] Name: Karen Juan Age: 32 yrs Sex: Female : 1990 Arrival Date: 07/24/2023 Time: 19:31 Bed 10 Private MD: Diagnosis: Diffuse otitis externa, bilateral;Influenza B Presentation: 07/24 19:43 Chief complaint: Patient states: Cough X2 days and fever onset today. Pt states taking jb4 a home COVID test and it was negative. No sick contacts. Coronavirus screen: Vaccine status: Patient reports being unvaccinated. Client denies travel out of the [place] in the last 14 days. Ebola Screen: Patient denies travel to an Ebola-affected area in the 21 days before illness onset. No symptoms or risks identified at this time. Initial Sepsis Screen: Does the patient meet any 2 criteria? No. Patient's initial sepsis screen is negative. Does the patient have a suspected source of infection? No. Patient's initial sepsis screen is negative. Risk Assessment: Do you want to hurt yourself or someone else? Patient reports no desire to harm self or others. Onset of symptoms was July 24, 2023. 19:43 Method Of Arrival: Ambulatory jb4 19:43 Acuity: LUL 4 jb4 Triage Assessment: 20:01 General: Appears in no apparent distress. Behavior is calm, cooperative. 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 - Social history:: Smoking status: Patient denies any tobacco usage or history of. Screenin:00 [facility] ED Fall Risk Assessment (Adult) History of falling in the last 3 months, tl4 including since admission No falls in past 3 months (0 pts) Confusion or Disorientation No (0 pts) Intoxicated or Sedated No (0 pts) Impaired Gait No (0 pts) Mobility Assist Device Used No (0 pt) Altered Elimination No (0 pt) Score/Fall Risk Level 0 - 2 = Low Risk. Abuse screen: Denies threats or abuse. Denies injuries from another. Nutritional screening: No deficits noted. Tuberculosis screening: No symptoms or risk factors identified. Assessment: 19:59 Reassessment: No changes from previously documented assessment. Patient and/or family tl4 updated on plan of care and expected duration. Pain level reassessed. Patient is alert, oriented x 3, equal unlabored respirations, skin warm/dry/pink. Pain: Complains of pain in generalized body aches. Vital Signs: 19:43 BP 132 / 82; Pulse 113; Resp 18 S; Temp 100.5(O); Pulse Ox 98% on R/A; Weight 95.25 kg; jb4 Height 5 ft. 6 in. ; Pain 0/10; 20:13 BP 110 / 77; Pulse 118; Resp 20; Pulse Ox 99% ; tl4 21:13 BP 109 / 55; Pulse 106; Resp 16; Temp 98.3(O); Pulse Ox 99% on R/A; tl4 19:43 Body Mass Index 33.89 (95.25 kg, 167.64 cm) jb4 19:43 Pain Scale: Adult jb4 ED Course: 19:35 Patient arrived in ED. ae5 19:42 Macarena Hines PA-C is PHCP. sb4 19:43 Ferny Bear MD is Attending Physician. sb4 19:44 Triage completed. jb4 19:44 Arm band placed on Patient placed in an exam room. jb4 19:52 Wallace Villalobos is Primary Nurse. tl4 20:01 Patient has correct armband on for positive identification. Bed in low position. Call tl4 light in reach. Side rails up X 1. Adult w/ patient. Provided Education on: ED process. 20:01 No provider procedures requiring assistance completed. tl4 20:12 Flu Sent. tl4 20:12 SARS RAPID Sent. tl4 20:38 Chest Pa And Lat (2 Views) XRAY In Process Unspecified. EDMS 21:14 Patient did not have IV access during this emergency room visit. tl4 Administered Medications: 20:12 Drug: Acetaminophen PO 1000 mg PO once Route: PO; tl4 21:14 Follow up: Response: No adverse reaction tl4 Medication: 20:00 VIS not applicable for this client. tl4 Outcome: 20:48 Discharge ordered by . sb4 21:13 Discharged to home ambulatory, with family, tl4 21:13 Condition: stable 21:13 Discharge instructions given to patient, Instructed on discharge instructions, follow up and referral plans. medication usage, Demonstrated understanding of instructions, follow-up care, medications, 21:14 Patient left the ED. tl4 Signatures: Dispatcher [employer] EDMS Thor Muro, RN RN jb4 Macarena Hines, PAElizabethC PA-C [email or web address] Wallace Villalobos tl4 Zina Nelson ae5 Corrections: (The following items were deleted from the chart) 20:39 20:13 COVID-19/FLU A+B+MOL.LAB.BRZ drawn and sent. tl4 EDDE
[2023-07-25 00:24] VITALS: BP 109/55; TEMP 98.3; O2SAT 99
== END ==
LOC: ER 19:31
DX: J10.1 Influenza due to other identified influenza virus with other respiratory manifestations (principal); H60.313 Diffuse otitis externa, bilateral; Z11.52 Encounter for screening for COVID-19
CPT/HCPCS: 36415; 71046; 87804; 87811; 99283

== ENCOUNTER 2023-11-11 21:46 | Emergency (ER) | payer SELFPAY ==
--- OUTSIDE RECORDS SUMMARY | 2023-11-11 21:48 | XMS REPORT | Continuity of Care Document ---
Author Name Unknown Address [address] [facility] [place] [address] [facility] thconnect Address [address] [facility] [address] [place] [address] Care Team Providers Care Laboratory Specialist Name Role Phone PCP, PATIENT DOES NOT HAVE A Primary Care Physic laureano Unavailable PATRICIA_GCBZClint_Karley_Manny Attending Clinician Unavailable ROUSE_F Attending Clinician Unavailable YUNG GUEVARA Attending Clinician Unavailable ADEEL GARCIA Attending Clinician Unavailable Adeel Garcia MD Attending Clinician [phone] PRAVEEN BANEGAS Attending Clinician Unavailable Praveen Banegas MD Attending Clinician [phone] DIVYA Attending Clinician Unavailable SCOTTY KILPATRICK Attending Clinician Unavailable Scotty Otto Attending Clinician [phone] [place] Attending Clinician Unavailable PATRICIA_GCBZClint_Bell_C Admitting Clinician Unavailable ROUSE_F Admitting Clinician Unavailable ADEEL GARCIA Admitting Clinician Unavailable PRAVEEN BANEGAS Admitting Clinician Unavailable DIVYA Admitting Clinician Unavailable Casper Admitting Clinician Unavailable Payers Payer Name Policy Type Policy Number Effective Date Expirati on Date Source [id number] [facility] [id number] [facility] 2 [id number] 2023 00:00:00 [facility] [id number] 2023 00:00:00 Problems Condition Name Condition Details Condition Category Status Onset Date Resolution Date Last Treatment Date Treating Clinician Comments Source Obesity Obesity Problem Active 10-13 00:00: 00 [facility] Anxiety Anxiety Problem Active 10-13 00:00: 00 [facility] History of anxiety state History of Anxiety State Problem Active 2022-07 00:00: 00 [facility] History of migraine History of Migraine Problem Active 2022-07 00:00: 00 [facility] Contracept ion using injectable contracept lubna medication Contracept ion Using Injectable Contracept lubna Medication Problem Active 08-11 00:00: 00 [facility] Contracept lubna management Contracept lubna management Disease Active 09-15 00:00: 00 [facility] BV (bacterial vaginosis) BV (bacterial vaginosis) Disease Active 09-15 00:00: 00 [facility] Pain pelvic Pain pelvic Disease Active 09-15 00:00: 00 [facility] Elevated blood pressure reading without diagnosis of hypertensi on Elevated blood pressure reading without diagnosis of hypertensi on Disease Active 09-15 00:00: 00 [facility] Overweight Overweight Disease Active 11-03 00:00: 00 Overview: Formattin g of this note might be different from the original. ICD10 Diagnosis Term [employer] [facility] Abnormal bleeding in menstrual cycle Abnormal bleeding in menstrual cycle Disease Active 11-03 00:00: 00 [facility] Allergies, Adverse Reactions, Alerts Allergy Name Allergy Type Status Severity Reaction(s) Onset Date Inactive Date Treating Clinician Comments Source PENICILL INS Drug Class Active Anaphylaxis 11-03 00:00: 00 [facility] Penicill ins Propensi ty to adverse reaction s Active Anaphylaxis 11-03 00:00: 00 [facility] Penicill ins Propensi ty to adverse reaction s Active Anaphylaxis 11-03 00:00: 00 [facility] PENICILL INS Allergy to substanc e Active Severe Anaphylaxis [facility] Social History Social Habit Start Date Stop Date Quantity Comments Source Gender identity [facility] Exposure to SARS-CoV-2 (event) 2022-12-03 00:00:00 2022-12-13 10:56:00 Not sure [facility] Alcohol intake 2022-12-13 00:00:00 2022-12-13 00:00:00 Current non-drinker of alcohol (finding) [facility] History of Social function 2022-12-13 00:00:00 2022-12-13 00:00:00 [facility] Tobacco use and exposure 2013-11-03 00:00:00 2013-11-03 00:00:00 Smokeless tobacco non-user [facility] Sex Assigned At 1990 00:00:00 1990 00:00:00 [facility] Smoking Status Start Date Stop Date Source Never Smoker [facility] Medications Ordered Medication Name Filled Medication Name Start Date Stop Date Current Medication? Ordering Clinician Indication Dosage Frequency Signature (SIG) Comments Components Source ketorolac (TORADOL) injection 15 mg 02-08 03:15: 00 02-08 02:30 :00 No 15mg 15 mg, Slow IV Push, ONCE, 1 dose, On Fri02/07/23 at 2215, [facility] NaCl 0.9% (NS) bolus infusion 500 mL 02-08 02:30: 00 02-08 03:42 :00 No 500mL at 999 mL/hr, 500 mL, IV Piggyback, ONCE, 1 dose, On Fri02/07/23 at 2130, STAT [facility] acetaminoph en (TYLENOL) tablet 650 mg 12-13 18:45: 00 12-13 18:48 :00 No 650mg 650 mg, Oral, ONCE, 1 dose, On Fri12/13/22 at 1345, [facility] ibuprofen (IBU) tablet 600 mg 12-13 18:45: 00 12-13 18:49 :00 No 600mg 600 mg, Oral, ONCE, 1 dose, On 5/19/23 at 1345, MATT [facility] medroxyprog esterone 150 mg/mL intramuscul ar suspensionI nject 1 mL every 3 months by intramuscul ar route. medroxyprog esterone 150 mg/mL intramuscul ar suspensionI nject 1 mL every 3 months by intramuscul ar route. 1-15 16:53: 19 No medroxypro gesterone 150 mg/mL intramuscu lar suspension Inject 1 mL every 3 months by intramuscu lar route. [facility] ondansetron 4 mg tablet 04-21 00:00: 00 Yes 4mg Take 1 tablet by mouth every 8 (eight) hours as needed for Nausea and Vomiting (N/V). [facility] metroNIDAZO LE (FLAGYL) 500 mg tablet 09-15 00:00: 00 Yes [id number] 500mg Take 1 Tab by mouth 2 (two) times daily. [facility] norgestimat e-ethinyl estradiol (ORTHO TRI-CYCLEN LO, 28,) 0.18/0.215 mg/ 0.25 mg-25 mcg tablet 09-15 00:00: 00 Yes [id number] 1{tbl} Take 1 Tab by mouth daily. [facility] Hair, Skin and Nails Advanced one daily Hair, Skin and Nails Advanced one daily No Hair, Skin and Nails Advanced one daily [facility] One-A-Day Womens Formula one daily One-A-Day Womens Formula one daily No One-A-Day Womens Formula one daily [facility] multivitami n multivitami n No multivitam in [facility] Zithromax Z-Jean Carlos 250 mg [...] ORAL ROUTE ONCE DAILY FOR 4 DAYS [facility] Vital Signs Vital Name Observation Time Observation Value Comments S ource BMI (Body Mass Index) 2023-10-14 00:00:00 33 kg/m2 [facility] Body Weight 2023-10-14 00:00:00 210.6 [lb_av] [facility] Height 2023-10-14 00:00:00 67 [in_i] [facility] BP Diastolic 2023-10-14 00:00:00 70 mm[Hg] [facility] BP Systolic 2023-10-14 00:00:00 124 mm[Hg] [facility] Height 2023-05-13 00:00:00 67 [in_i] [facility] BP Systolic 2023-05-13 00:00:00 114 mm[Hg] [facility] Body Weight 2023-05-13 00:00:00 3328 [oz_av] [facility] BMI (Body Mass Index) 2023-05-13 00:00:00 32.6 kg/m2 [facility] BP Diastolic 2023-05-13 00:00:00 64 mm[Hg] [facility] Systolic blood pressure 2023-02-08 03:00:00 99 mm[Hg] [facility] Diastolic blood pressure 2023-02-08 03:00:00 83 mm[Hg] [facility] Heart rate 2023-02-08 03:00:00 60 /min [facility] Respiratory rate 2023-02-08 03:00:00 20 /min [facility] Oxygen saturation in Arterial blood by Pulse oximetry 2023-02-08 03:00:00 98 /min [facility] Body temperature 2023-02-08 00:35:00 37.22 Rhonda [facility] Body height 2023-02-08 00:35:00 170.2 cm [facility] Body weight 2023-02-08 00:35:00 95.255 kg [facility] BMI 2023-02-08 00:35:00 32.89 kg/m2 [facility] Systolic blood pressure 2022-12-13 15:58:00 126 mm[Hg] [facility] Diastolic blood pressure 2022-12-13 15:58:00 78 mm[Hg] [facility] Heart rate 2022-12-13 15:58:00 81 /min [facility] Body temperature 2022-12-13 15:58:00 36.67 Rhonda [facility] Respiratory rate 2022-12-13 15:58:00 18 /min [facility] Body height 2022-12-13 15:58:00 170.2 cm [facility] Body weight 2022-12-13 15:58:00 97.523 kg [facility] BMI 2022-12-13 15:58:00 33.67 kg/m2 [facility] Oxygen saturation in Arterial blood by Pulse oximetry 2022-12-13 15:58:00 99 /min [facility] Oxygen saturation in Arterial blood by Pulse oximetry 2022-02-11 15:48:00 99 /min [facility] Systolic blood pressure 2022-02-11 14:52:00 128 mm[Hg] [facility] Diastolic blood pressure 2022-02-11 14:52:00 80 mm[Hg] [facility] Heart rate 2022-02-11 14:52:00 75 /min [facility] Body temperature 2022-02-11 14:52:00 36.17 Rhonda [facility] Respiratory rate 2022-02-11 14:52:00 16 /min [facility] Body height 2022-02-11 14:52:00 170.2 cm [facility] Body weight 2022-02-11 14:52:00 92.534 kg [facility] BMI 2022-02-11 14:52:00 31.95 kg/m2 [facility] BP Diastolic 2018-08-11 00:00:00 73 mm[Hg] [facility] Height 2018-08-11 00:00:00 67 [in_i] [facility] BMI (Body Mass Index) 2018-08-11 00:00:00 24.4 kg/m2 [facility] BP Systolic 2018-08-11 00:00:00 122 mm[Hg] [facility] Body Weight 2018-08-11 00:00:00 156 [lb_av] [facility] Procedures Procedure Date / Time Performed Performing Clinicia n Source MRI, ankle, w/o contrast 2023-05-13 00:00:00 [facility] US OVARY TORSION 2023-02-08 04:21:13 [facility] 2023-02-08 01:11:00 Adeel Garcia [facility] COMP. METABOLIC PANEL (78395) 2023-02-08 00:54:00 Adeel Garcia [facility] TOTAL BETA HCG ASSAY 2023-02-08 00:54:00 Adeel Garcia [facility] CBC WITH DIFF 2023-02-08 00:54:00 Adeel Garcia [facility] NOTICE OF PRIVACY PRACTICES 2023-02-08 00:35:46 Doctor Unassigned, [place] [facility] CONSENT/REFUSAL FOR DIAGNOSIS AND TREATMENT 2023-02-08 00:35:00 Doctor Unassigned, [place] [facility] XR LUMBAR SPINE 3 2022-12-13 18:05:59 Praveen Banegas [facility] XR SPINE THORACIC 2 2022-12-13 18:05:59 Elisa Banegas [facility] XR CERVICAL SPINE 3 2022-12-13 18:05:59 Elisa Banegas [facility] CONSENT/REFUSAL FOR DIAGNOSIS AND TREATMENT 2022-12-13 15:42:52 Doctor Unassigned, [place] [facility] POCT TEST 2022-02-11 15:20:00 Scotty Kilpatrick [facility] CONSENT/REFUSAL FOR DIAGNOSIS AND TREATMENT 2022-02-11 14:44:37 Doctor Unassigned, [place] [facility] Plan of Care Planned Activity Planned Date Details Comments Source Diagnostic Test Pending 2023-10-14 00:00:00 pap, LB + HPV [code = pap, LB + HPV] [facility] Diagnostic Test Pending 2023-10-14 00:00:00 Indirect antiglobulin test.IgG specific reagent [Presence] in Serum or Plasma [code = 1005-8] [facility] Diagnostic Test Pending 2018-08-11 00:00:00 urinalysis, dipstick [code = urinalysis, dipstick] [facility] Diagnostic Test Pending 2018-08-11 00:00:00 test, urine [code = test, urine] [facility] Future Scheduled Test Improved r ight ankle pain, and improved URI symptoms. [code = Improved right ankle pain, and improved URI symptoms.] [facility] Future Appointment 2024-10-14 08:45:[address]; [facility] [address], [place] [address] [facility] Instructions [facility] Encounters Start Date/Time End Date/Time Encounter Type Admission Type Attending [facility] Care Facility Care Department Encounter ID Source 2023-10-22 00:00:00 2023-10-22 00:00:00 Outpatient GC_GCBZW_Be ll_C [facility] [id number] [facility] 2023-10-14 00:00:00 2023-10-14 00:00:00 Outpatient GC_GCBZW_Be ll_C [facility] [id number] [facility] 2023-10-14 00:00:00 2023-10-14 00:00:00 Anita Richmond, SPECIAL COLLECTIONS LIBRARIAN: Tracey Gonzales, [address], [place] [address] , Ph. Count includes the [facility] - GC_GCBZW_La [facility]* [id number] [facility] 2023-10-10 00:00:00 2023-10-10 00:00:00 Outpatient GC_GCBZW_Be ll_C [facility] [id number] [facility] 2023-09-12 00:00:00 2023-09-12 00:00:00 Outpatient ROUSE_F [facility] [id number] [facility] 2023-08-08 00:00:00 2023-08-08 00:00:00 Outpatient ROUSE_F [facility] [id number] [facility] 2023-07-04 00:00:00 2023-07-04 00:00:00 Outpatient BRADEN_F [facility] [id number] [facility] 2023-07-03 00:00:00 2023-07-03 00:00:00 Outpatient BRADEN_[facility] [id number] [facility] 2023-06-12 00:00:00 2023-06-12 00:00:00 Outpatient BRADEN_F [facility] [id number] [facility] 2023-05-13 00:00:00 2023-05-13 00:00:00 Outpatient BRADEN_F [facility] [id number] [facility] 2023-05-13 00:00:00 2023-05-13 00:00:00 Brenda Mc, SPECIAL COLLECTIONS LIBRARIAN-C: [address] [facility] [place] [address] , Ph. [phone] [facility], [address] SHE[address]ERD [id number] [facility] 2023-05-09 00:00:00 2023-05-09 00:00:00 Outpatient BRADEN_F [facility] [id number] [facility] 2023-02-13 10:30:00 2023-02-13 10:30:00 Outpatient YUNG GUEVARA [id number] Sally [facility]arbrough 2023-02-07 19:44:00 2023-02-07 23:57:00 Emergency ADEEL LAURENT [facility] ERT [id number] [facility] 2023-02-07 19:44:00 2023-02-07 23:57:00 Emergency Adeel Garcia [facility] [id number] [facility] 2022-12-13 10:58:00 2022-12-13 14:02:00 Emergency X PRAVEEN BANEGAS [facility] ERT [id number] [facility] 2022-12-13 10:58:00 2022-12-13 14:02:00 Emergency Praveen Banegas [facility] [id number] [facility] 2022-02-22 00:00:00 2022-02-22 00:00:00 Outpatient SAMYANDRIYCrys CARLSON HIMITCHELL [facility] [id number] [facility] 2022-02-11 09:53:00 2022-02-11 10:58:00 Emergency X SCOTTY KILPATRICK [facility] ERT [id number] [facility] 2022-02-11 09:53:00 2022-02-11 10:58:00 Emergency Scotty Kilpatrick [facility] [id number] [facility] 2020-06-14 02:40:00 2020-06-14 02:40:00 Outpatient G_Pappas [facility] 8 [facility] 2018-08-11 00:00:00 2018-08-11 00:00:00 Brooklyn Sandoval, WHNP: [address] [place] [address] , Ph. [phone] [facility] 0115 [facility] Results Test Description Test Time Test Comments Results Resul t Comments Source TOTAL BETA HCG ASSAY 2023-02-08 01:59:28 BETA HCG<2.39Non-preg nant female and male patients: <5 mIU/mL02/07/2023 8:59 PM [facility] Gestational Age ?Range (mIU/mL) 1-10 ?Weeks ?[id number] Weeks ?[id number]- 22 Weeks ?[id number] 0 Weeks ?2131-056366 Biotin has been reported to cause a negative bias, interpret results relative to patient's use of biotin. [facility] WITH [id number] 01:16:54* Test Item Value Reference Range Interpretation Comme nts WBC (test code = 6690-2) 8.41 See_Comment [Automated [employer] ge] The system which generated this result transmitted reference range: 4.30 - 11.10 10*3/?L. The reference range was not used to interpret this result as normal/abnormal. RBC (test code = 789-8) 4.17 See_Comment [Automated [employer] ge] The system which generated this result [...] g/dL 31.6-35.1 H RDW-SD (test code = 20133-9) 39.3 fL 39.0-49.9 RDW-CV (test code = 788-0) 11.9 % 12.0-15.5 L PLT (test code = 777-3) 189 See_Comment [Automated [employer] ge] The system which generated this result transmitted reference range: 166 - 358 10*3/?L. The reference range was not used to interpret this result as normal/abnormal. MPV (test code = 37943-0) 11.1 fL 9.5-12.9 NRBC/100 WBC (test code = 4833037981) 0.0 See_Comment [Automated me ssage] The system which generated this result transmitted reference range: 0.0 - 10.0 /100 WBCs. The reference range was not used to interpret this result as normal/abnormal. NRBC x10^3 (test code = 6860720366) See_Comment [Automated messa ge] The system which generated this result transmitted reference range: 10*3/?L. The reference range was not used to interpret this result as normal/abnormal. GRAN MAT (NEUT) % (test code = 770-8) 70.3 % IMM GRAN % (test code = 8558673074) 0.20 % LYMPH % (test code = 736-9) 22.5 % MONO % (test code = 5905-5) 5.6 % EOS % (test code = 713-8) 1.0 % BASO % (test code = 706-2) 0.4 % GRAN MAT x10^3(ANC) (test code = 6428423771) 5.92 10*3/uL 1.88-7.09 IMM GRAN x10^3 (test code = 6703478805) 0.00-0.06 LYMPH x10^3 (test code = 731-0) 1.89 10*3/uL 1.32-3.29 MONO x10^3 (test code = 742-7) 0.47 10*3/uL 0.33-0.92 EOS x10^3 (test code = 711-2) 0.08 10*3/uL 0.03-0.39 BASO x10^3 (test code = 704-7) 0.03 10*3/uL 0.01-0.07 Lab Interpretation (test code = 71696-5) Abnormal [facility] [id number] 15:20:00* Test Item Value Reference Range Interpretation Comme nts POCT PREG (test code = 1605) negative On board controls acceptable with C Line (test code = 3574) present POCT PREG LOT # (test code = 3575) [id number] POCT PREG TEST DATE ( test code = 3576) 05-27-23 Lab Interpretation (test cod e = 32330-9) [facility] - Urine 2018-08-11 16:26:08* Test Item Value Reference Range Interpretation Comme nts Leukocytes (test code = Leukocytes) Negative Nitrite (test code = Nitrite) negative Urobilinogen (test code = Urobilinogen) 1 Protein (test code = Protein) Negative pH (test code = pH) 7.0 Blood (test code = Blood) Large Specific Jet (test code = Specific Jet) 1.015 Ketone (test code = Ketone) Negative Bilirubin (test code = Bilirubin) Negative Glucose (test code = Glucose) Negative Appearance (test code = Appearance) Clear Color (test code = Color) Yellow [facility] [id number] 16:25:02* Test Item Value Reference Range Interpretation Comme nts Test (test code = Test) negative [facility]
[2023-11-11 23:16] LABS: SARS-CoV-2 Antigen CONTROL BLUE LINE VIS/BG OK; SARS-CoV-2 Antigen Rapid Res Negative (Negative)
--- NOTE | 2023-11-11 23:24 | ER ---
Nurse's Notes [facility] Name: Karen Juan Age: 32 yrs Sex: Female : 1990 Arrival Date: 11/11/2023 Time: 21:46 Bed 12 Private MD: Diagnosis: Otalgia, bilateral Presentation: 11/10 21:59 Chief complaint: Patient states: Pt c/o bilateral ear pain, sore throat and fever. tl4 Coronavirus screen: fever, sore throat. Ebola Screen: No symptoms or risks identified at this time. Initial Sepsis Screen: Does the patient meet any 2 criteria? No. Patient's initial sepsis screen is negative. Does the patient have a suspected source of infection? No. Patient's initial sepsis screen is negative. Risk Assessment: Do you want to hurt yourself or someone else? Patient reports no desire to harm self or others. Onset of symptoms was November 07, 2023. 21:59 Method Of Arrival: Ambulatory tl4 21:59 Acuity: LUL 4 tl4 Triage Assessment: 22:03 General: Appears uncomfortable, Behavior is cooperative. Pain: Complains of pain in tl4 right ear, left ear and neck. EENT: Reports nasal congestion pain in left ear and right ear and throat. Neuro: Level of Consciousness is awake, alert, obeys commands, Oriented to person, place, time, situation, Moves all extremities. Gait is steady. Cardiovascular: Capillary refill < 3 seconds Patient's skin is warm and dry. Respiratory: Airway is patent Respiratory effort is even, unlabored, Respiratory pattern is regular, symmetrical, Breath sounds are clear bilaterally. GI: No signs and/or symptoms were reported involving the gastrointestinal system. : No signs and/or symptoms were reported regarding the genitourinary system. Derm: No signs and/or symptoms reported regarding the dermatologic system. LINESPERSON: 22:44 LMP N/A - control method, Not tl4 Historical: - Allergies: 22:02 PENICILLINS; tl4 - Home Meds: 22:02 None [Active]; tl4 - PMHx: 22:02 Asthma; polycystic ovary syndrome; tl4 - PSHx: 22:02 leg; tl4 - Immunization history:: Adult Immunizations unknown. - Infectious Disease History:: Denies. - Social history:: Smoking status: Patient denies any tobacco usage or history of. Screenin:23 [facility] ED Fall Risk Assessment (Adult) History of falling in the last 3 months, vc1 including since admission No falls in past 3 months (0 pts) Confusion or Disorientation No (0 pts) Intoxicated or Sedated No (0 pts) Impaired Gait No (0 pts) Mobility Assist Device Used No (0 pt) Altered Elimination No (0 pt) Score/Fall Risk Level 0 - 2 = Low Risk Oriented to surroundings, Maintained a safe environment, Educated pt \T\ family on fall prevention, incl call for assistance when getting out of bed, Assessed \T\ reinforced patient's understanding of fall precautions. Abuse screen: Denies threats or abuse. Denies injuries from another. Nutritional screening: No deficits noted. Tuberculosis screening: No symptoms or risk factors identified. Assessment: 22:43 Reassessment: Patient and/or family updated on plan of care and expected duration. Pain tl4 level reassessed. Patient is alert, oriented x 3, equal unlabored respirations, skin warm/dry/pink. 23:31 Reassessment: No changes from previously documented assessment. Patient and/or family vc1 updated on plan of care and expected duration. Pain level reassessed. Patient is alert, oriented x 3, equal unlabored respirations, skin warm/dry/pink. Vital Signs: 21:59 BP 114 / 64; Pulse 86; Resp 16; Temp 98.6(O); Pulse Ox 98% on R/A; Weight 90.72 kg; tl4 Height 5 ft. 6 in. ; Pain 5/10; 23:31 BP 110 / 60; Pulse 80; Resp 16; Pulse Ox 99% ; vc1 21:59 Body Mass Index 32.28 (90.72 kg, 167.64 cm) tl4 21:59 Pain Scale: Adult tl4 ED Course: 21:47 Patient arrived in ED. jj6 21:54 Shania Altamirano FNP-C [facility]. kb 21:54 Srinivasa Bates MD is Attending Physician. kb 22:02 Triage completed. tl4 22:04 Arm band placed on left wrist. tl4 22:23 Bed in low position. Call light in reach. vc1 22:30 Wallace Villalobos, JOHN PAUL is Primary Nurse. tl4 22:43 Strep Sent. tl4 22:43 SARS-COV-2 Antigen Rapid Sent. tl4 22:43 Flu Sent. tl4 22:44 Provided Education on: ED process. Door closed. Noise minimized. Lights dimmed. Moved tl4 to private room. Warm blanket given. 22:44 No provider procedures requiring assistance completed. tl4 22:44 Patient did not have IV access during this emergency room visit. tl4 Administered Medications: No medications were administered Medication: 22:22 VIS not applicable for this client. vc1 Outcome: 23:23 Discharge ordered by . estelle 23:32 Discharged to home ambulatory, vc1 23:32 Condition: good 23:32 Discharge instructions given to patient, Instructed on discharge instructions, follow up and referral plans. Demonstrated understanding of instructions, follow-up care, 23:32 Patient left the ED. vc1 Signatures: Shania Altamirano, YARD STOCKER-C YARD STOCKER-CkVenus Haynes jj6 Mara Giles RN RN vc1 Wallace Villalobos RN RN tl4
--- NOTE | 2023-11-11 23:24 | EDPHYS ---
Physician Documentation [facility] Name: Karen Juan Age: 32 yrs Sex: Female : 1990 Arrival Date: 11/11/2023 Time: 21:46 Bed 12 Private MD: ED Physician Srinivasa Bates HPI: 11/10 23:31 This 32 yrs old Female presents to ER via Ambulatory with complaints of Ear Pain, Cough.kb 23:31 Pt is a 32 year old female who presents for bilateral ear pain, worse on the right, and kb sore throat that started one week ago. Also reports cough. Denies fever. 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 - Infectious Disease History:: Denies. - Social history:: Smoking status: Patient denies any tobacco usage or history of. ROS: 23:31 Constitutional: As per HPI kb Exam: 23:31 Constitutional: This is a well developed, well nourished patient who is awake, alert, kb and in no acute distress. Head/Face: Normocephalic, atraumatic. ENT: Moist Mucous membranes Cardiovascular: Regular rate Respiratory: Respirations even and unlabored. No increased work of breathing. Talking in full sentences Abdomen/GI: Soft, non-tender. No distention Skin: Warm, dry with normal turgor. Normal color. MS/ Extremity: Pulses equal, no cyanosis. Neurovascular intact. Full, normal range of motion. Neuro: Awake and alert, GCS 15, oriented to person, place, time, and situation. Moves all extremities. Normal gait. 23:31 ENT: External ear(s): are unremarkable, Ear canal(s): are normal, TM's: are normal, Vital Signs: 21:59 BP 114 / 64; Pulse 86; Resp 16; Temp 98.6(O); Pulse Ox 98% on R/A; Weight 90.72 kg; tl4 Height 5 ft. 6 in. ; Pain 5/10; 23:31 BP 110 / 60; Pulse 80; Resp 16; Pulse Ox 99% ; vc1 21:59 Body Mass Index 32.28 (90.72 kg, 167.64 cm) tl4 21:59 Pain Scale: Adult tl4 MDM: 21:54 Patient medically screened. kb 23:31 Differential diagnosis: otitis media, otitis externa, ruptured TM, foreign body, acute kb otalgia. Data reviewed: vital signs, nurses notes. Counseling: I had a detailed discussion with the patient and/or guardian regarding the historical points, exam findings, and any diagnostic results supporting the discharge/admit diagnosis, the need for outpatient follow up, a family practitioner, to return to the emergency department if symptoms worsen or persist or if there are any questions or concerns that arise at home. 11/10 22:33 Order name: Flu; Complete Time: 23:23 kb 11/10 22:33 Order name: SARS-COV-2 Antigen Rapid; Complete Time: 23:20 kb 11/10 22:33 Order name: Strep; Complete Time: 23:23 kb 11/10 23:22 Order name: Throat Culture EDMS Administered Medications: No medications were administered Disposition: 11/11 01:49 Co-signature as Attending Physician, Srinivasa Bates MD I agree with the assessment sp4 and plan of care. I reviewed the patient's care provided by the Advanced Practice Provider and agree with the diagnosis and treatment plan. Disposition Summary: 11/11/23 23:23 Discharge Ordered Notes: Location: Home kb Condition: Stable kb Diagnosis - Otalgia, bilateral kb Followup: kb - With: Emergency Department - When: As needed - Reason: Worsening of condition Followup: kb - With: Private Physician - When: 2 - 3 days - Reason: Recheck today's complaints, Continuance of care, Re-evaluation by your physician Discharge Instructions: - Discharge Summary Sheet kb - Earache, Adult kb Forms: - Medication Reconciliation Form kb - Thank You Letter kb - Antibiotic Education kb - Prescription Opioid Use kb - Patient Portal Instructions kb - Leadership Thank You Letter kb Signatures: Dispatcher [employer] EDMS Shania Altamirano FNP-C FNP-Ckb Potepalov, Sergey, MD MD sp4 LogdaWallace manjarrez RN RN tl4
[2023-11-12 09:06] VITALS: BP 110/60; TEMP 98.6; O2SAT 99
== END 2023-11-11 23:32 | disposition home or self-care (01) ==
LOC: ER 21:46
DX: H92.03 Otalgia, bilateral (principal); R05.9 Cough, unspecified; Z11.52 Encounter for screening for COVID-19; Z88.0 Allergy status to penicillin
CPT/HCPCS: 36415; 87070; 87081; 87804; 87811; 99283

== ENCOUNTER 2024-08-11 17:05 | Emergency (ER) | payer BC, SELFPAY ==
--- OUTSIDE RECORDS SUMMARY | 2024-08-11 17:09 | XMS REPORT | Continuity of Care Document ---
Author Name Unknown Address [address] [facility]. [address] [place] [address] [facility] Address [address] [facility] [address] [place] [address] Care Team Providers Care Technical Training Instructor Name Role Phone MORELCONSTANTINO SpanglerGILMA Primary Care Physician Unavailab VIANNEY Giordano Attending Clinician Unavailable Vianney Petty NP Attending Clinician [phone] Campaigns, Generic Provider Attending Clinician Unavailable SHIVANI LINN Attending Clinician Unavailab katie GOMZE_GCBZW_Karley_Manny Attending Clinician Unavailable ROUSE_F Attending Clinician Unavailable YUNG GUEVARA Attending Clinician Unavailable ADEEL GARCIA Attending Clinician Unavailable Adeel Garcia MD Attending Clinician [phone] PRAVEEN BANEGAS Attending Clinician Unavailable Praveen Banegas MD Attending Clinician [phone] DIVYA Attending Clinician Unavailable SCOTTY KILPATRICK Attending Clinician Unavailable Scotty Otto Attending Clinician [phone] Casper Attending Clinician Unavailable VIANNEY PETTY Admitting Clinician Unavailable SHIVANI LINN Admitting Clinician Unavailab katie GOMEZ_GCBZW_Bell_C Admitting Clinician Unavailable ROUSE_F Admitting Clinician Unavailable AEDEL GARCIA Admitting Clinician Unavailable PRAVEEN BANEGAS Admitting Clinician Unavailable DIVYA Admitting Clinician Unavailable G_Pappas Admitting Clinician Unavailable Payers Payer Name Policy Type Policy Number Effective Date Expirati on Date Source HIM [facility] [id number] 2023 00:00:00 LYNNE LOMELI [facility] [id number] [facility] [id number] [place] [id number] 2023 00:00:00 Problems Condition Name Condition Details Condition Category Status Onset Date Resolution Date Last Treatment Date Treating Clinician Comments Source Other constipati on Other constipati on Disease Active 12-04 00:00: 00 [facility] Nausea and vomiting, unspecifie d vomiting type Nausea and vomiting, unspecifie d vomiting type Disease Active 12-04 00:00: 00 [facility] Obesity Obesity Problem Active 10-13 00:00: 00 [facility] Anxiety Anxiety Problem Active 10-13 00:00: 00 [facility] History of anxiety state History of Anxiety State Problem Active 2022-07 00:00: 00 [facility] History of migraine History of Migraine Problem Active 2022-07 00:00: 00 [facility] Contracept ion using injectable contracept lubna medication Contracept ion Using Injectable Contracept lubna Medication Problem Active 1-15 00:00: 00 [facility] Contracept lubna management Contracept lubna management Disease Active 09-15 00:00: 00 [facility] BV (bacterial vaginosis) BV (bacterial vaginosis) Disease Active 09-15 00:00: 00 [facility] Pain pelvic Pain pelvic Disease Active 09-15 00:00: 00 [facility] Elevated blood pressure reading without diagnosis of hypertensi on Elevated blood pressure reading without diagnosis of hypertensi on Disease Active 09-15 00:00: 00 [facility] Overweight Overweight Disease Active 11-03 00:00: 00 Overview: Formattin g of this note might be different from the original. 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 [facility] Abnormal bleeding in menstrual cycle Abnormal bleeding in menstrual cycle Disease Active 11-03 00:00: 00 [facility] Allergies, Adverse Reactions, Alerts Allergy Name Allergy Type Status Severity Reaction(s) Onset Date Inactive Date Treating Clinician Comments Source PENICILL INS Drug Class Active Anaphylaxis 11-03 00:00: 00 [facility] Penicill ins Propensi ty to adverse reaction s Active Anaphylaxis 11-03 00:00: 00 [facility] Penicill ins Propensi ty to adverse reaction s Active Anaphylaxis 11-03 00:00: 00 [facility] PENICILL INS Allergy to substanc e Active Severe Anaphylaxis [facility] Social History Social Habit Start Date Stop Date Quantity Comments Source Gender identity [facility] Alcoholic beverage intake 2023-12-05 00:00:00 2023-12-05 00:00:00 Current non-drinker of alcohol (finding) [facility] History of Social function 2023-12-05 00:00:00 2023-12-05 00:00:00 [facility] Exposure to SARS-CoV-2 (event) 2022-12-03 00:00:00 2022-12-13 10:56:00 Not sure [facility] Alcohol intake 2022-12-13 00:00:00 2022-12-13 00:00:00 Current non-drinker of alcohol (finding) [facility] Tobacco use and exposure 2013-11-03 00:00:00 2013-11-03 00:00:00 Smokeless tobacco non-user [facility] Sex assigned at 1990 00:00:00 1990 00:00:00 [facility] Smoking Status Start Date Stop Date Source Never smoked tobacco [facility] Medications Ordered Medication Name Filled Medication Name Start Date Stop Date Current Medication? Ordering Clinician Indication Dosage Frequency Signature (SIG) Comments Components Source azithromyci n (ZITHROMAX Z-ROBERT) 250 mg tablet 08-04 00:00: 00 08-10 05:59 :00 Yes [id number] Take 2 tablets by mouth daily for 1 day, THEN 1 tablet daily for 4 days. [facility] metoclopram shirin HCl (REGLAN) injection 10 mg 10 18:00: 00 12-04 18:02 :00 No 10mg 10 mg, Slow IV Push, ONCE, 1 dose, [facility] Fri12/05/23 at 1300[facility] (ISOVUE 370-500 mL) injection 85 mL 12-04 16:15: 00 12-04 16:30 :00 No [id number] 85mL 85 mL, Intravenou s, ONCE, 1 dose, On Fri12/05/23 at 1130, Routine [facility] NaCl 0.9% (NS) bolus infusion 1,000 mL 12-04 16:00: 00 12-04 18:01 :00 No 1000mL at 999 mL/hr, 1,000 mL, IV Infusion, ONCE, 1 dose, On Fri12/05/23 at 1100, [facility] ondansetron (ZOFRAN (PF)) injection 4 mg 12-04 15:15: 00 12-04 15:55 :00 No 4mg 4 mg, Slow IV Push, ONCE, 1 dose, On Fri12/05/23 at 1015, [facility] metoclopram shirin HCl (REGLAN) 10 mg tablet 12-04 00:00: 00 Yes [id number] 10mg Take 1 tablet by mouth every 8 (eight) hours as needed for Nausea and Vomiting (N/V). [facility] polyethylen e glycol 3350 (MIRALAX) 17 gram/dose powder 12-04 00:00: 00 12-12 04:59 :00 No [id number] 17g Take 17 g by mouth in the morning for 7 days. [facility] ketorolac (TORADOL) injection 15 mg 15 03:15: 00 02-08 02:30 :00 No 15mg 15 mg, Slow IV Push, ONCE, 1 dose, On Fri02/07/23 at 2215, [facility] NaCl 0.9% (NS) bolus infusion 500 mL 02-08 02:30: 00 02-08 03:42 :00 No 500mL at 999 mL/hr, 500 mL, IV Piggyback, ONCE, 1 dose, On Fri02/07/23 at 2130, STAT [facility] acetaminoph en (TYLENOL) tablet 650 mg 12-13 18:45: 00 12-13 18:48 :00 No 650mg 650 mg, Oral, ONCE, 1 dose, On Fri12/13/22 at 1345, MATT [facility] ibuprofen (IBU) tablet 600 mg 12-13 18:45: 00 12-13 18:49 :00 No 600mg 600 mg, Oral, ONCE, 1 dose, On Fri12/13/22 at 1345, MATT [facility] medroxyprog esterone 150 mg/mL intramuscul ar suspensionI nject 1 mL every 3 months by intramuscul ar route. medroxyprog esterone 150 mg/mL intramuscul ar suspensionI nject 1 mL every 3 months by intramuscul ar route. 15 16:53: 19 No medroxypro gesterone 150 mg/mL intramuscu lar suspension Inject 1 mL every 3 months by intramuscu lar route. [facility] ondansetron 4 mg tablet 04-21 00:00: 00 Yes 4mg Take 1 tablet by mouth every 8 (eight) hours as needed for Nausea and Vomiting (N/V). [facility] metroNIDAZO LE (FLAGYL) 500 mg tablet 09-15 00:00: 00 Yes [id number] 500mg Take 1 Tab by mouth 2 (two) times daily. [facility] norgestimat e-ethinyl estradiol (ORTHO TRI-CYCLEN LO, 28,) 0.18/0.215 mg/ 0.25 mg-25 mcg tablet 09-15 00:00: 00 Yes [id number] 1{tbl} Take 1 Tab by mouth daily. [facility] multivitami n multivitami n No multivitam in [facility] Hair, Skin and Nails Advanced one daily Hair, Skin and Nails Advanced one daily No Hair, Skin and Nails Advanced one daily [facility] One-A-Day Womens Formula one daily One-A-Day Womens Formula one daily No One-A-Day Womens Formula one daily [facility] Immunizations Ordered Immunization Name Filled Immunization Name Date Status Comments Source Rubella 2010-02-13 00:00:00 Completed Rubella 2010-02-13 00:00:00 Completed [facility] Rubella 2010-02-13 00:00:00 Completed [facility] Rubella 2010-02-13 00:00:00 Completed [facility] TD, NOS 2006-07-28 00:00:00 Completed Td 2006-07-28 00:00:00 Completed [facility] TD, NOS 2006-07-28 00:00:00 Completed [facility] TD, NOS 2006-07-28 00:00:00 Completed [facility] Rubella Unknown Completed [facility] TD, NOS Unknown Completed [facility] Rubella Unknown Completed [facility] TD, NOS Unknown Completed [facility] Vital Signs Vital Name Observation Time Observation Value Comments S ource Systolic blood pressure 2024-08-04 19:36:00 102 mm[Hg] [facility] Diastolic blood pressure 2024-08-04 19:36:00 76 mm[Hg] [facility] Heart rate 2024-08-04 19:36:00 77 /min [facility] Body temperature 2024-08-04 19:36:00 36.78 Rhonda [facility] Respiratory rate 2024-08-04 19:36:00 16 /min [facility] Oxygen saturation in Arterial blood by Pulse oximetry 2024-08-04 19:36:00 97 /min [facility] Body height 2024-08-04 17:39:00 170.2 cm [facility] Body weight 2024-08-04 17:39:00 95.255 kg [facility] BMI 2024-08-04 17:39:00 32.89 kg/m2 [facility] Systolic blood pressure 2023-12-05 18:01:12 113 mm[Hg] [facility] Diastolic blood pressure 2023-12-05 18:01:12 70 mm[Hg] [facility] Heart rate 2023-12-05 18:01:12 65 /min [facility] Respiratory rate 2023-12-05 18:01:12 16 /min [facility] Oxygen saturation in Arterial blood by Pulse oximetry 2023-12-05 18:01:12 98 /min [facility] Body temperature 2023-12-05 14:58:00 37.11 Rhonda [facility] Body height 2023-12-05 14:58:00 170.2 cm [facility] Body weight 2023-12-05 14:58:00 95.255 kg [facility] BMI 2023-12-05 14:58:00 32.89 kg/m2 [facility] BMI (Body Mass Index) 2023-10-14 00:00:00 33 kg/m2 [facility] Body Weight 2023-10-14 00:00:00 210.6 [lb_av] [facility] Height 2023-10-14 00:00:00 67 [in_i] [facility] BP Diastolic 2023-10-14 00:00:00 70 mm[Hg] [facility] BP Systolic 2023-10-14 00:00:00 124 mm[Hg] [facility] Height 2023-05-13 00:00:00 67 [in_i] [facility] BP Systolic 2023-05-13 00:00:00 114 mm[Hg] [facility] Body Weight 2023-05-13 00:00:00 3328 [oz_av] [facility] BMI (Body Mass Index) 2023-05-13 00:00:00 32.6 kg/m2 [facility] BP Diastolic 2023-05-13 00:00:00 64 mm[Hg] [facility] Systolic blood pressure 2023-02-08 03:00:00 99 mm[Hg] [facility] Diastolic blood pressure 2023-02-08 03:00:00 83 mm[Hg] [facility] Heart rate 2023-02-08 03:00:00 60 /min [facility] Respiratory rate 2023-02-08 03:00:00 20 /min [facility] Oxygen saturation in Arterial blood by Pulse oximetry 2023-02-08 03:00:00 98 /min [facility] Body temperature 2023-02-08 00:35:00 37.22 Rhonda [facility] Body height 2023-02-08 00:35:00 170.2 cm [facility] Body weight 2023-02-08 00:35:00 95.255 kg [facility] BMI 2023-02-08 00:35:00 32.89 kg/m2 [facility] Systolic blood pressure 2022-12-13 15:58:00 126 mm[Hg] [facility] Diastolic blood pressure 2022-12-13 15:58:00 78 mm[Hg] [facility] Heart rate 2022-12-13 15:58:00 81 /min [facility] Body temperature 2022-12-13 15:58:00 36.67 Rhonda [facility] Respiratory rate 2022-12-13 15:58:00 18 /min [facility] Body height 2022-12-13 15:58:00 170.2 cm [facility] Body weight 2022-12-13 15:58:00 97.523 kg [facility] BMI 2022-12-13 15:58:00 33.67 kg/m2 [facility] Oxygen saturation in Arterial blood by Pulse oximetry 2022-12-13 15:58:00 99 /min [facility] Oxygen saturation in Arterial blood by Pulse oximetry 2022-02-11 15:48:00 99 /min [facility] Systolic blood pressure 2022-02-11 14:52:00 128 mm[Hg] [facility] Diastolic blood pressure 2022-02-11 14:52:00 80 mm[Hg] [facility] Heart rate 2022-02-11 14:52:00 75 /min [facility] Body temperature 2022-02-11 14:52:00 36.17 Rhonda [facility] Respiratory rate 2022-02-11 14:52:00 16 /min [facility] Body height 2022-02-11 14:52:00 170.2 cm [facility] Body weight 2022-02-11 14:52:00 92.534 kg [facility] BMI 2022-02-11 14:52:00 31.95 kg/m2 [facility] BP Diastolic 2018-08-11 00:00:00 73 mm[Hg] [facility] Height 2018-08-11 00:00:00 67 [in_i] [facility] BMI (Body Mass Index) 2018-08-11 00:00:00 24.4 kg/m2 [facility] BP Systolic 2018-08-11 00:00:00 122 mm[Hg] [facility] Body Weight 2018-08-11 00:00:00 156 [lb_av] [facility] Procedures Procedure Date / Time Performed Performing Clinicia n Source XR CHEST 1 VW 2024-08-04 18:40:00 Vianney Petty [facility] COMP. METABOLIC PANEL ([id number]) 2023-12-05 16:48:00 Shivani Linn [facility] CT ABDOMEN PELVIS W CONTRAST 2023-12-05 16:21:00 Shivani Linn [facility] POCT TEST 2023-12-05 16:03:00 Silvia Linn [facility] URINALYSIS 2023-12-05 15:48:00 [facility]iv[facility] 2023-12-05 15:38:00 Shivani Linn [facility] CBC WITH DIFF 2023-12-05 15:38:00 [facility], w/o contrast 2023-05-13 00:00:00 [facility] US OVARY TORSION 2023-02-08 04:21:13 [facility]el [facility] 2023-02-08 01:11:00 [facility] COMP. METABOLIC PANEL ([id number]) 2023-02-08 00:54:00 Adeel Garcia [facility] TOTAL BETA HCG ASSAY 2023-02-08 00:54:00 Adeel Garcia [facility] CBC WITH DIFF 2023-02-08 00:54:00 Adeel Garcia [facility] NOTICE OF PRIVACY PRACTICES 2023-02-08 00:35:46 Doctor Unassigned, [place] [facility] CONSENT/REFUSAL FOR DIAGNOSIS AND TREATMENT 2023-02-08 00:35:00 Doctor Unassigned, [place] [facility] XR LUMBAR SPINE 3 VW 2022-12-13 18:05:59 Praveen Banegas [facility] XR SPINE THORACIC 2 VW 2022-12-13 18:05:59 Elisa Banegas [facility] XR CERVICAL SPINE 3 VW 2022-12-13 18:05:59 Elisa Banegas [facility] CONSENT/REFUSAL FOR DIAGNOSIS AND TREATMENT 2022-12-13 15:42:52 Doctor Unassigned, [place] [facility] POCT TEST 2022-02-11 15:20:00 Scotty Kilpatrick [facility] CONSENT/REFUSAL FOR DIAGNOSIS AND TREATMENT 2022-02-11 14:44:37 Doctor Unassigned, [place] [facility] Plan of Care Planned Activity Planned Date Details Comments Source Diagnostic Test Pending 2023-10-14 00:00:00 pap, LB + HPV [code = pap, LB + HPV] [facility] Medical Diagnostic Test Pending 2023-10-14 00:00:00 Indirect antiglobulin test.IgG specific reagent [Presence] in Serum or Plasma [code = 1005-8] [facility] Medical Diagnostic Test Pending 2018-08-11 00:00:00 urinalysis, dipstick [code = urinalysis, dipstick] [facility] Diagnostic Test Pending 2018-08-11 00:00:00 test, urine [code = test, urine] [facility] Future Scheduled Test Improved r ight ankle pain, and improved URI symptoms. [code = Improved right ankle pain, and improved URI symptoms.] [facility] Future Appointment 2024-10-14 08:45:00 Anita Richmond [facility] [address]; [facility] [address], [place] [address] [facility] Instructions [facility] Encounters Start Date/Time End Date/Time Encounter Type Admission Type Attending Clinicians Care Facility Care Department Encounter ID Source 2024-08-04 11:40:00 2024-08-04 13:38:00 Emergency X MALINDA VIANNEY [facility] ERT [id number] [facility] 2024-08-04 11:40:00 2024-08-04 13:38:00 Emergency Malinda Vianney [facility] [id number] [facility] 2023-12-17 00:00:00 2023-12-17 10:50:00 Letter (Out) Campaigns, Generic Provider [facility] [id number] [facility] 2023-12-05 10:00:00 2023-12-05 13:10:00 Emergency X KANIKAJANShannon SILVIASAULOHOMA [facility] ERT [id number] [facility] 2023-12-05 10:00:00 2023-12-05 13:10:00 Emergency Aderikasey Shivani [facility] [id number] [id number] [facility] 2023-10-22 00:00:00 2023-10-22 00:00:00 Outpatient GC_GCBZW_Be ll_C [facility] [id number] [facility] 2023-10-14 00:00:00 2023-10-14 00:00:00 Outpatient GC_GCBZW_Be ll_C [facility] [id number] [facility] 2023-10-14 00:00:00 2023-10-14 00:00:00 QUITA Albrecht: [address], [place] [address] , Ph. [facility] - GC_GCBZW_[facility]* [id number] [facility] 2023-10-10 00:00:00 2023-10-10 00:00:00 Outpatient GC_GCBZW_Be ll_C [facility] [id number] [facility] 2023-09-12 00:00:00 2023-09-12 00:00:00 Outpatient ROUSE_F [facility] [id number] 2023-08-08 00:00:00 2023-08-08 00:00:00 Outpatient ROUSE_F [facility] [id number] 2023-07-04 00:00:00 2023-07-04 00:00:00 Outpatient BRADEN_F [facility] [id number] 2023-07-03 00:00:00 2023-07-03 00:00:00 Outpatient BRADEN_F [facility] [id number] 2023-06-12 00:00:00 2023-06-12 00:00:00 Outpatient BRADEN_F [facility] [id number] 2023-05-13 00:00:00 2023-05-13 00:00:00 Outpatient BRADEN_F [facility] [id number] 2023-05-13 00:00:00 2023-05-13 00:00:00 QUITA Godinez-C: [address], [place] [address] , Ph. [facility] [address] [id number] [facility] 2023-05-09 00:00:00 2023-05-09 00:00:00 Outpatient TAMICA_F [facility] [id number] [facility] 2023-02-13 10:30:00 2023-02-13 10:30:00 Outpatient YUNG GUEVARA [id number] Sally Yarbrough 2023-02-07 19:44:00 2023-02-07 23:57:00 Emergency X ADEEL GARCIA [facility] ERT [id number] [facility] 2023-02-07 19:44:00 2023-02-07 23:57:00 Emergency Adeel Garcia [facility] .[id number] [id number] [id number] [id number] [facility] 2022-12-13 10:58:00 2022-12-13 14:02:00 Emergency X PRAVEEN BANEGAS [facility] ERT [id number] [facility] 2022-12-13 10:58:00 2022-12-13 14:02:00 Emergency Praveen Banegas [facility] .[id number] [id number] [id number] [id number] [facility] 2022-02-22 00:00:00 2022-02-22 00:00:00 Outpatient JAYLEN_ADAN OLIVA [facility] [id number] Sach[facility] 2022-02-11 09:53:00 2022-02-11 10:58:00 Emergency X SCOTTY KILPATRICK [facility] ERT [id number] [facility] 2022-02-11 09:53:00 2022-02-11 10:58:00 Emergency Scotty Kilpatrick [facility] [id number] [id number] [id number] [id number] [facility] 2020-06-14 02:40:00 2020-06-14 02:40:00 Outpatient G_Pappas [facility] [id number] [facility] 2018-08-11 00:00:00 2018-08-11 00:00:00 Brooklyn Sandoval, WHNP: [address] [place] [address] , Ph. [phone] [facility] OBQUINCY Zen [address] [facility] Results Test Description Test Time Test Comments Results Result Comments Source XR Chest 1 vw 18:47:53 HISTORY: Chest pain. TECHNIQUE: Portable AP view of the chest is obtained. Cough no prior cheststudy available for comparison. FINDINGS: Minimal focal congestion suspected near the left hilum. No acutepneumonia. No pneumothorax or pleural effusion detected. Cardiac size iswithin normal limits. CONCLUSIONS: Minimal congestion in left central lung, consistent with viralinfection. [facility] CT ABDOMEN PELVIS W CONTRAST 17:11:28 CT SCAN OF THE ABDOMEN AND PELVIS WITH IV CONTRAST HISTORY: Nausea and vomiting Ordering physician: SHIVANI LINN COMPARISON: ?None. TECHNIQUE: Routine CT scan of the abdomen and pelvis after administration ofintravenous contrast. Coronal and sagittal reformatted images. CT scan was performed according to ALARA (as low as reasonably achievable)principle. RESULT: Lower thorax:Visualized lung bases are clear. Heart is normal in size. No pleural or pericardial effusion. Liver, gallbladder, and biliary system:The liver is normal in size and contour and demonstrates homogeneousattenuation with no enhancing mass. The gallbladder is unremarkable. There is no intra-or extrahepatic biliaryductal dilatation. Pancreas: Normal.Spleen: Normal. Adrenal glands: Normal. Kidneys and ureters:Kidneys enhance symmetrically without enhancing soft tissue mass orhydronephrosis. No bulky retroperitoneal lymphadenopathy. GI tract:There is moderate amount of stool within the majority of the large colon.There is relative sparing at the rectosigmoid colon. The GI tract is not obstructed. No bowel wall thickening. Normal caliber appendix. Peritoneum/retroperitoneum : No ascites, pneumoperitoneum, or mesentericlymphadenopathy. Vessels: Normal caliber aorta. Urinary bladder: Slightly filled urinary bladder is noted. Reproductive organs: Uterus is normal in size. There is a 2.2 cm left ovarian cyst present.There is a spondylolisthesis of the right ovary. There is no free pelvic fluid. There is no bulky iliac or inguinallymphadenopathy. Bones:The osseous structures appear intact. There are mild degenerative changesof the hips. [facility]18[facility]* Test Item Value Reference Range Interpretation Comme [facility] LIPASE (test code = 3311564572) 100 U/L 0-220 Lab Interpretation (test cod e = 09344-0) [facility] [id number] 16:03:00* Test Item Value Reference Range Interpretation Comme nts POCT PREG (test code = 1605) Negative On board controls acceptable with C Line (test code = 3574) Yes POCT PREG LOT # (test code = 3575) [id number] POCT PREG TEST DATE ( test code = 3576) 11-28-2024 Lab Interpretation (test cod e = 26677-7) Normal [facility] BET[facility] HCG [id number] 01:59:28BETA HCG<2.39Non- female and male patients: <5 mIU/mL02/07/2023 8:59 PM [facility] Gestational Age ?Range (mIU/mL) 1-10 ?Weeks ?[id number] Weeks ?73443-12517814-27 Weeks ?7350-56823074-42 Weeks ?5919-163301 Biotin has been reported to cause a negative bias, interpret results relative to patient's use of biotin.[facility] COMP. METABOLIC PANEL (04190)2023-02-08 01:31:13* Test Item Value Reference Range Interpretation Comme nts NA (test code = 3194098393) 140 mmol/L 135-145 K (test code = 5701639088) 4.1 mmol/L 3.5-5.0 CL (test code = 3654512620) 107 mmol/L 98-108 CO2 TOTAL (test code = 1412016767) 24 mmol/L 23-31 AGAP (test code = 5092507931) 9 2-16 BUN (test code = 4436517886) 12 mg/dL 7-23 GLUCOSE (test code = 7542413813) 92 mg/dL 70-110 CREATININE (test code = 8161673552) 0.65 mg/dL 0.50-1.04 TOTAL BILI (test code = 2036706660) 0.5 mg/dL 0.1-1.1 CALCIUM (test code = 6626075816) 9.2 mg/dL 8.6-10.6 T PROTEIN (test code = 1749061300) 7.5 g/dL 6.3-8.2 ALBUMIN (test code = 0945924015) 4.3 g/dL 3.5-5.0 ALK PHOS (test code = 9253691142) 62 U/L 34-122 ALTv (test code = 1742-6) 68 U/L 5-35 H AST(SGOT) (test code = 0603126684) 35 U/L 13-40 eGFR (test code = 6745952390) 107.0 mL/min/1.73m2 SAGRARIO (test code = SAGRARIO) Association of Glomerular Filtration Rate (GFR) and Staging of Kidney Disease* + --+ --+ ------+| GFR (mL/min/1.73 m2) ?| With Kidney Damage ?| ?Without Kidney Damage+ --------+ --------+ +| ?>90 ?| ?Stage one ?| ? Normal ?+ ---+ ---+ -------+| ?60-89 ?| ?Stage two ?| ? Decreased GFR ? + --+ --+ ------+| ?30-59 ?| ?Stage three ?| ? Stage three ? + --+ --+ ------+| ?15-29 ?| ?Stage four ? | ? Stage four ?+ ---+ ---+ -------+| ?<15 (or dialysis) ? ?| ?Stage five ? | ? Stage five ?+ ---+ ---+ -------+ *Each stage assumes the associated GFR level has been in effect for at least three months. ?Stages 1 to 5, with or without kidney disease, indicate chronic kidney disease. Notes: Determination of stages one and two (with eGFR >59mL/min/1.73 m2) requires estimation of kidney damage for at least three months as defined by structural or functional abnormalities of the kidney, manifested by either:Pathological abnormalities or Markers of kidney damage (including abnormalities in the composition of the blood or urine or abnormalities in imaging tests). Lab Interpretation (test code = 64324-6) Abnormal [facility] WITH [id number] 01:16:54* Test Item Value Reference Range Interpretation Comme nts WBC (test code = 6690-2) 8.41 See_Comment [Automated [employer]] The system which generated this result transmitted reference range: 4.30 - 11.10 10*3/?L. The reference range was not used to interpret this result as normal/abnormal. RBC (test code = 789-8) 4.17 See_Comment [[employer]] The system which generated this result transmitted [...] g/dL 31.6-35.1 H RDW-SD (test code = 73490-3) 39.3 fL 39.0-49.9 RDW-CV (test code = 788-0) 11.9 % 12.0-15.5 L PLT (test code = 777-3) 189 See_Comment [[employer]] The system which generated this result transmitted reference range: 166 - 358 10*3/?L. The reference range was not used to interpret this result as normal/abnormal. MPV (test code = 83808-9) 11.1 fL 9.5-12.9 NRBC/100 WBC (test code = 2574249553) 0.0 See_Comment [Automated me ssage] The system which generated this result transmitted reference range: 0.0 - 10.0 /100 WBCs. The reference range was not used to interpret this result as normal/abnormal. NRBC x10^3 (test code = 4654941324) See_Comment [Automated messa ge] The system which generated this result transmitted reference range: 10*3/?L. The reference range was not used to interpret this result as normal/abnormal. GRAN MAT (NEUT) % (test code = 770-8) 70.3 % IMM GRAN % (test code = 0316884672) 0.20 % LYMPH % (test code = 736-9) 22.5 % MONO % (test code = 5905-5) 5.6 % EOS % (test code = 713-8) 1.0 % BASO % (test code = 706-2) 0.4 % GRAN MAT x10^3(ANC) (test code = 9006187572) 5.92 10*3/uL 1.88-7.09 IMM GRAN x10^3 (test code = 0011460016) 0.00-0.06 LYMPH x10^3 (test code = 731-0) 1.89 10*3/uL 1.32-3.29 MONO x10^3 (test code = 742-7) 0.47 10*3/uL 0.33-0.92 EOS x10^3 (test code = 711-2) 0.08 10*3/uL 0.03-0.39 BASO x10^3 (test code = 704-7) 0.03 10*3/uL 0.01-0.07 Lab Interpretation (test code = 85443-7) Abnormal [facility] [id number] 15:20:00* Test Item Value Reference Range Interpretation Comme nts POCT PREG (test code = 1605) negative On board controls acceptable with C Line (test code = 3574) present POCT PREG LOT # (test code = 3575) [id number] POCT PREG TEST DATE ( test code = 3576) 05-27-23 Lab Interpretation (test cod e = 08556-9) Normal [facility] (dipstick) panel - Urine 2018-08-11 16:26:08* Test Item Value Reference Range Interpretation Comme nts Leukocytes (test code = Leukocytes) Negative Nitrite (test code = Nitrite) negative Urobilinogen (test code = Urobilinogen) 1 Protein (test code = Protein) Negative pH (test code = pH) 7.0 Blood (test code = Blood) Large Specific [place] (test code = Specific [place]) 1.015 Ketone (test code = Ketone) Negative Bilirubin (test code = Bilirubin) Negative Glucose (test code = Glucose) Negative Appearance (test code = Appearance) Clear Color (test code = Color) Yellow [facility] [id number] 16:25:02* Test Item Value Reference Range Interpretation Comme nts Test (test code = Test) negative [facility]"
--- NOTE | 2024-08-11 18:27 | RAD REPORT ---
EXAM: Chest Single View HISTORY: Cough;SOB COMPARISON: 07/29/2023 FINDINGS: LUNGS/PLEURA: Question some subtle developing airspace opacities with partial obscuration of left hem idiaphragm in the left lower lung base MEDIASTINUM: The mediastinal silhouette is within normal limits. CARDIAC: The cardiac silhouette is within normal limits. UPPER ABDOMEN: No significant abnormality. BONES: No acute abnormality. LINES/TUBES/OTHER: Metallic foreign body overlying the left heart border which may be external to the patient. It was not present on the prior chest radiograph. IMPRESSION: Possible early developing or mild pneumonia at the left lung base. The lungs are otherwise well aerat ed.
[2024-08-11] MEDS ORDERED: HYDROCODONE/CHLORPHEN 5 ML/OSYR ONE (18:41)
[2024-08-11] MEDS ORDERED: ALBUTEROL 2.5 MG/3 ML NEB SOL ONE (18:41)
[2024-08-11] MEDS ORDERED: IPRATROPIUM BROM 0.5MG/2.5ML ONE (18:41)
[2024-08-11] MEDS ORDERED: ONDANSETRON 4 MG/2 ML VIAL ONE (18:42)
--- NOTE | 2024-08-11 19:03 | RAD REPORT ---
EXAMINATION: US LOWER EXTREMITY VENOUS DOPPLER BILATERAL CLINICAL INDICATION: Female, 33 years old.PAIN TECHNIQUE: Complete bilateral duplex sonography of the lower extremity veins was performed. The exami nation included compression for vein patency, color Doppler imaging and flow augmentation in response to distal compression of the distal external iliac, common femoral, femoral, popliteal, marie enedelia, tibial and great saphenous veins. [id number]. COMPARISON: No prior exams FINDINGS: Duplex sonography imaging demonstrates all deep examined to be fully compressible with spontaneous, p hasic and augmented flow bilaterally. IMPRESSION: No evidence of deep venous thrombosis seen in either lower extremity.
[2024-08-11 19:04] LABS: Absolute Eosinophils 0.1 K/uL (0-0.5); Absolute Lymphocytes (CBC) 0.4 K/uL (0.7-4.9); Absolute Monocytes 0.3 K/uL (0.1-1.3); Absolute Neutrophil 5.1 K/uL (1.8-8.0); Basophils % 0.1 % (0-1.3); Hematocrit 40.2 % (36.0-45.0); Hemoglobin 14.3 g/dL (12.0-15.0); MCH 32.2 pg (27.0-35.0); MCHC 35.6 g/dL (32.0-36.0); MCV 90.7 fL (80-100); MPV 8.5 fL (7.6-11.3); Monocytes % 5.1 % (3.3-12.3); Neutrophils % 86.8 % (41.7-73.7); Platelets 163 thou/uL (152-406); RBC Red Blood Cell Count 4.43 M/uL (3.86-4.86); Red Cell Distribution Width 12.7 % (12.1-15.2)
[2024-08-11 19:16] LABS: D-Dimer 0.594 FEUug/mL (0-0.500); Protime INR 1.14
[2024-08-11 19:24] LABS: SARS-CoV-2 Antigen CONTROL BLUE LINE VIS/BG OK; SARS-CoV-2 Antigen Rapid Res Negative (Negative)
[2024-08-11 19:27] LABS: ALT/SGPT 28 U/L (13-56); AST/SGOT 21 U/L (15-37); Albumin 3.8 g/dL (3.4-5.0); Alkaline Phosphatase 64 U/L (45-117); Anion Gap 12.3 mEq/L (5.0-15.0); BUN Blood Urea Nitrogen 11 mg/dL (7-18); Bicarbonate 22 mEq/L (21-32); Bilirubin Direct 0.2 mg/dL (0-0.2); Bilirubin Indirect, Calculated 0.3 mg/dL (0.2-0.8); Bilirubin Total 0.5 mg/dL (0.2-1.0); Globulin 3.9 g/dL (2.3-3.5); Glomerular Filtration Rate 95 ml/min (=/>90); Glucose Level 91 mg/dL (74-106); Magnesium 1.6 mg/dL (1.6-2.4); NT PRO-BNP 26 pg/mL (<125); Potassium 3.3 mEq/L (3.5-5.1); Protein, Total 7.7 g/dL (6.4-8.2); Sodium Level 137 mEq/L (136-145)
[2024-08-11 19:28] LABS: Troponin High Sensitivity < 3.0 pg/mL (<58.9)
[2024-08-11 19:38] LABS: Specific Gravity 1.017 (1.005-1.030)
[2024-08-11 19:40] LABS: Specific Gravity 1.017 (1.005-1.030); Sqamous Epithelial <5 /HPF (None Seen); Urine Bacteria <20 /HPF (<20); Urine Bilirubin NEGATIVE (Negative); Urine Blood 3+ (Negative); Urine Clarity Extremely Turbid (Clear); Urine Color Colorless (Yellow); Urine Crystals Unidentified Few /HPF (None Seen); Urine Culture Reflex Order REFLEXED; Urine Glucose NEGATIVE (Negative); Urine Ketones 1+ (Negative); Urine Microscopic Reflex YN ORDER UMIC; Urine Mucus Slight /HPF (None Seen); Urine Nitrite NEGATIVE (Negative); Urine Protein TRACE (Negative); Urine RBC >50 /HPF (None Seen); Urine Urobilinogen Normal (Normal); Urine WBC 20-50 /HPF (<5); Urine Yeast (Budding) Trace /HPF (None Seen)
--- NOTE | 2024-08-11 21:33 | RAD REPORT ---
EXAMINATION: CTA CHEST PE CLINICAL INDICATION: Female, 33 years old. Chest pain;SOB TECHNIQUE: This examination was performed according to an angiographic protocol with 3D post-processi ng. This involves 3D reconstructions, MIPs, volume rendered images and/or shaded surface rendering. One or more of the following dose reduction techniques were used: Automated exposure control, adjustm ent of the mA and/or kV according to patient size, and/or iterative reconstruction. Unless otherwise specified, incidental findings do not require dedicated imaging follow-up. [id number]. COMPARISON: No priors. FINDINGS: LOWER NECK: Visualized thyroid gland and soft tissues are normal. LUNGS AND AIRWAYS: Airways are clear. No evidence of airspace or interstitial process.No suspicious a nd/or stable pulmonary nodules. PLEURA: No pleural effusion. No pneumothorax. Hemidiaphragms are normally positioned. MEDIASTINUM AND LYMPH NODES: No mediastinal mass or fluid collection. Normal size mediastinal, hilar, and axillary lymph nodes. THORACIC AORTA: No thoracic aortic aneurysm. PULMONARY ARTERIES: Caliber is within normal limits. HEART: Normal heart size. No coronary calcifications.No significant pericardial effusion. OSSEOUS STRUCTURES AND CHEST WALL: UPPER ABDOMEN: No acute abnormalities. IMPRESSION: No evidence of pulmonary emboli to the subsegmental level. Lungs are clear.
[2024-08-11 21:44] LABS: Blood Morphology Comment NOT SEEN (NOT SEEN); Platelet Estimate ADEQ; White Blood Cell Scan OK (OK)
--- NOTE | 2024-08-11 22:56 | EDPHYS ---
Physician Documentation [facility] Name: Karen Juan Age: 33 yrs Sex: Female : 1990 Arrival Date: 08/11/2024 Time: 17:05 Bed 18 Private MD: ED Physician Nolan Novoa HPI: 08/11 18:05 This 33 yrs old Female presents to ER via Ambulatory with complaints of Breathing cp Difficulty, Cough. 18:05 The patient has shortness of breath at rest. cp 18:05 Onset: The symptoms/episode began/occurred today. cp 18:05 Duration: The symptoms are continuous, and are steadily getting worse. Patient reports cp she was diagnosed with bronchitis over a week ago and prescribed 5 day course of antibiotics. Symptoms improved and today started having cough again, fever, body aches. 18:05 Associated signs and symptoms: Pertinent positives: pain to left and right lower legs. 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 - Infectious Disease History:: Denies. - Social history:: Smoking status: Patient denies any tobacco usage or history of. ROS: 18:10 Constitutional: Positive for body aches, chills, fever, cp 18:10 Eyes: Negative for injury, pain, redness, and discharge, cp 18:10 ENT: Positive for sore throat, Negative for drainage from ear(s), ear pain, difficulty swallowing, difficulty handling secretions, 18:10 Neck: Negative for pain with movement, pain at rest, stiffness, 18:10 Cardiovascular: Positive for chest pain, with cough, 18:10 Respiratory: Positive for cough, "sounds productive", shortness of breath, 18:10 Abdomen/GI: Positive for nausea, Negative for abdominal pain, vomiting, diarrhea, constipation, 18:10 Neuro: Negative for altered mental status, weakness, 18:10 All other systems are negative, Exam: 18:15 Constitutional: The patient appears in no acute distress, alert, awake, non-toxic, well cp developed, well nourished, 18:15 Head/Face: Normocephalic, atraumatic. cp 18:15 Eyes: Periorbital structures: appear normal, Conjunctiva: normal, no exudate, no injection, Sclera: no appreciated abnormality, Lids and lashes: appear normal, bilaterally, 18:15 ENT: External ear(s): are unremarkable, Nose: is normal, Mouth: Lips: moist, Oral mucosa: moist, Posterior pharynx: Airway: no evidence of obstruction, patent, Tonsils: no enlargement, no exudate, erythema, that is mild, exudate, is not appreciated, 18:15 Neck: ROM/movement: is normal, is supple, no meningismus, no nuchal rigidity, 18:15 Chest/axilla: Inspection: normal, 18:15 Cardiovascular: Rate: tachycardic, Rhythm: regular, Edema: is not appreciated, 18:15 Respiratory: the patient does not display signs of respiratory distress, Respirations: labored breathing, that is mild, Breath sounds: bronchial sounds, that are mild, are heard diffusely, stridor, is not appreciated, + upper airway congestion. 18:15 Abdomen/GI: Inspection: abdomen appears normal, Palpation: abdomen is soft and non-tender, in all quadrants, 18:15 Neuro: Orientation: to person, place \\T\\ time. Mentation: is normal, Motor: moves all fours, strength is normal, 22:55 ECG was reviewed by the Attending Physician. Vital Signs: 17:10 BP 132 / 61; Pulse 109; Resp 20 S; Temp 98.7(O); Pulse Ox 100% on R/A; Weight 95.25 kg aa5 (R); Height 5 ft. 7 in. (R); 19:24 Temp 100.6(O); aa5 21:00 BP 126 / 70; Pulse 102; Resp 20; Pulse Ox 100% on R/A; ay 17:10 Body Mass Index 32.89 (95.25 kg, 170.18 cm) aa5 19:24 provider notified of increased temperature aa5 MDM: 17:10 Medical Screening Exam initiated cp 22:55 Data reviewed: vital signs, nurses notes, lab test result(s), EKG, radiologic studies, cp CT scan, plain films, and as a result, I will discharge patient. 22:55 Differential diagnosis: asthma, Bronchitis bronchitis, Myocardial Infarction pneumonia, cp Pneumothorax pulmonary edema, Pulmonary Embolism. I considered the following discharge prescriptions or medication management in the emergency department Medications were administered in the Emergency Department. See MAR. Care significantly affected by the following chronic conditions: Asthma. Counseling: I had a detailed discussion with the patient and/or guardian regarding the historical points, exam findings, and any diagnostic results supporting the discharge/admit diagnosis, lab results, radiology results, to return to the emergency department if symptoms worsen or persist or if there are any questions or concerns that arise at home. Response to treatment: the patient's symptoms have markedly improved after treatment, and as a result, I will discharge patient. 08/11 17:58 Order name: Basic Metabolic Panel; Complete Time: 20:50 cp 08/11 20:50 Interpretation: Normal except: K 3.3. cp 08/11 17:58 Order name: CBC with Diff; Complete Time: 21:50 cp 08/11 21:51 Interpretation: CELIA% 86.8; LYM% 7.0; LYMA 0.4; Reviewed. 08/11 17:58 Order name: D-Dimer; Complete Time: 19:16 cp 08/11 19:16 Interpretation: Reviewed. cp 08/11 17:58 Order name: LFT's; Complete Time: 20:50 cp 08/11 21:56 Interpretation: GLOB 3.9; A/G 1.0; Reviewed. 08/11 17:58 Order name: Magnesium; Complete Time: 20:50 cp 08/11 17:58 Order name: NT PRO-BNP; Complete Time: 20:50 cp 08/11 17:58 Order name: PT-INR; Complete Time: 20:50 cp 08/11 17:58 Order name: Troponin HS; Complete Time: 20:50 cp 08/11 21:57 Interpretation: Reviewed. 08/11 17:58 Order name: Urinalysis w/ reflexes; Complete Time: 20:50 cp 08/11 21:56 Interpretation: Normal except: [facility] Extremely Turbid; UKET 1+; UBLD 3+; UPH 8.0; UPROT cp TRACE; UESTR 75; UWBC 20-50; URBC >50; BYST Trace. 08/11 17:58 Order name: Test, Urine; Complete Time: 20:50 cp 08/11 17:58 Order name: Influenza Screen (a \\T\\ B); Complete Time: 20:50 cp 08/11 21:57 Interpretation: Abnormal: FLUA FLU A ----- POSITIVE for FLU A protein antigen. cp 08/11 17:58 Order name: SARS RAPID; Complete Time: 20:50 cp 08/11 17:58 Order name: RSV; Complete Time: 20:50 cp 08/11 19:43 Order name: Urine Culture EDIL 08/11 21:44 Order name: CBC Smear Scan; Complete Time: 21:50 EDMS 08/11 17:58 Order name: XRAY Chest (1 view); Complete Time: 19:16 cp 08/11 17:58 Order name: US Extremity Venous W Compression Heriberto; Complete Time: 19:16 cp 08/11 21:51 Interpretation: Report reviewed. cp 08/11 19:17 Order name: CT Chest For PE Angio; Complete Time: 21:50 cp 08/11 21:54 Interpretation: Report reviewed. cp 08/11 17:58 Order name: EKG; Complete Time: 17:58 cp 08/11 17:58 Order name: Cardiac monitoring; Complete Time: 19:28 cp 08/11 17:58 Order name: EKG - Nurse/Tech; Complete Time: 00:16 cp 08/11 17:58 Order name: IV Saline Lock; Complete Time: 19:28 cp 08/11 17:58 Order name: Labs collected and sent; Complete Time: 19:28 cp 08/11 17:58 Order name: O2 Per Protocol; Complete Time: 19:28 cp 08/11 17:58 Order name: O2 Sat Monitoring; Complete Time: 19:28 cp EC:55 Rate is 120 beats/min. Rhythm is regular. QRS interval is normal. QT interval is cp normal. Interpreted by me. Reviewed by me. Administered Medications: 18:11 Drug: Tussionex Pennkinetic ER PO Suspension 5 ml PO once Route: PO; rs5 23:50 Follow up: Response: No adverse reaction ay 18:20 Drug: Ondansetron IVP 4 mg IVP once; over 2 minutes Route: IVP; Site: right antecubital;rs5 23:50 Follow up: Response: No adverse reaction ay 18:20 Drug: DuoNeb Nebulize (2.5 mg - 0.5 mg) 3 ml Nebulizer once Route: Nebulizer; rs5 23:50 Follow up: Response: No adverse reaction ay 23:30 Drug: predniSONE PO 60 mg PO once Route: PO; ay 23:50 Follow up: Response: No adverse reaction ay 23:30 Drug: Oseltamivir PO 75 mg PO once Route: PO; ay 23:50 Follow up: Response: No adverse reaction ay 23:30 Drug: Ibuprofen PO 800 mg PO once Route: PO; ay 23:50 Follow up: Response: No adverse reaction ay Disposition: 08/12 09:39 Co-signature as Attending Physician, Nolan Novoa MD I agree with the assessment and adam plan of care. Disposition Summary: 08/11/24 22:55 Discharge Ordered Notes: Location: Home cp Problem: new cp Symptoms: have improved cp Condition: Stable cp Diagnosis - Influenza due to identified novel influenza A virus with other respiratory cp manifestations - Unspecified asthma with (acute) exacerbation cp Followup: cp - With: Private Physician - When: 2 - 3 days - Reason: Worsening of condition Discharge Instructions: - Discharge Summary Sheet cp - Asthma, Adult cp - Influenza, Adult cp Forms: - Medication Reconciliation Form cp - Antibiotic Education cp - Prescription Opioid Use cp - Patient Portal Instructions cp - Leadership Thank You Letter cp - Work release form rv1 Prescriptions: - Bromfed DM 2-30-10 mg/5 mL Oral syrup - administer 10 milliliter ORAL route every 6 hours as needed for cold symptoms; cp 240 milliliter; Refills: 0, Product Selection Permitted - albuterol sulfate 90 mcg/actuation Inhalation HFA Aerosol Inhaler - inhale 1 puff INHALATION route every 4 to 6 hours as needed for bronchospasm; cp administer via ventilator; 1 unit; Refills: 0, Product Selection Permitted - cefdinir 300 mg Oral capsule - take 1 capsule ORAL route 2 times per day for 10 days; 20 capsule; Refills: 0, cp Product Selection Permitted - Ibuprofen 800 mg Oral Tablet - take 1 tablet ORAL route every 8 hours As needed take with food; 30 tablet; cp Refills: 0, Product Selection Permitted - Tamiflu 75 mg Oral Capsule - take 1 capsule ORAL route every 12 hours for 5 days; 10 capsule; Refills: 0, cp Product Selection Permitted - Medrol (Jean Carlos) 4 mg Oral Tablets, Dose Pack - take 1 tablet ORAL route as directed - follow package instructions; 1 packet; cp Refills: 0, Product Selection Permitted Signatures: Dispatcher [employer] EDMS Nolan Novoa MD MD cha Calderon, Audri, RN RN aa5 Nolan Thompson PA PA Solomon Amaya, RN RN rs5 Sejal Stoner, RN RN ay Corrections: (The following items were deleted from the chart) 08/11 17:59 17:58 BASIC METABOLIC PANEL+C.LAB.BRZ ordered. EDMS EDMS 17:59 17:58 CBC+H.LAB.BRZ ordered. EDMS EDMS 17:59 17:58 D-DIMER+COAG.LAB.BRZ ordered. EDMS EDMS 17:59 17:58 HEPATIC FUNCTION+C.LAB.BRZ ordered. EDMS EDMS 17:59 17:58 MAGNESIUM+C.LAB.BRZ ordered. EDMS EDMS 17:59 17:58 PROBNP+C.LAB.BRZ ordered. EDMS EDMS 17:59 17:58 PROTIME (+INR)+COAG.LAB.BRZ ordered. EDMS EDMS 17:59 17:58 Troponin High Sensitivity+C.LAB.BRZ ordered. EDMS EDMS 17:59 17:58 Urinalysis+U.LAB.BRZ ordered. EDMS EDMS 17:59 17:58 Test, Urine+UC.LAB.BRZ ordered. EDMS EDMS 17:59 17:58 Influenza Screen (A \\T\\ B)+BA.LAB.BRZ ordered. EDMS EDMS 17:59 17:58 SARS-COV-2 Antigen Rapid+I.LAB.BRZ ordered. EDMS EDMS 17:59 17:58 Respiratory Syncytial Virus Ag+BA.LAB.BRZ ordered. EDMS EDMS 18:11 17:58 Extrem Venous W Compression Heriberto+US.RAD.BRZ ordered. EDMS EDMS 21:52 19:16 Reviewed. cp cp
--- NOTE | 2024-08-11 22:56 | ER ---
Nurse's Notes [facility] Name: Karen Juan Age: 33 yrs Sex: Female : 1990 Arrival Date: 08/11/2024 Time: 17:05 Bed 18 Private MD: Diagnosis: Influenza due to identified novel influenza A virus with other respiratory manifestations;Unspecified asthma with (acute) exacerbation Presentation: 08/11 17:10 Chief complaint: Patient states: "I was diagnosed with bronchitis last week but today I aa5 started coughing real bad, having body aches, and chills, my temperature was 99.9*F at the house". Coronavirus screen: cough unrelated to allergies. Ebola Screen: Patient denies travel to an Ebola-affected area in the 21 days before illness onset. Initial Sepsis Screen: Does the patient meet any 2 criteria? HR > 90 bpm. Does the patient have a suspected source of infection?. Risk Assessment: Do you want to hurt yourself or someone else? Patient reports no desire to harm self or others. Onset of symptoms was August 11, 2024. 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 - Infectious Disease History:: Denies. - Social history:: Smoking status: Patient denies any tobacco usage or history of. Screenin:00 [facility] ED Fall Risk Assessment (Adult) History of falling in the last 3 months, ay including since admission No falls in past 3 months (0 pts) Confusion or Disorientation No (0 pts) Intoxicated or Sedated No (0 pts) Impaired Gait No (0 pts) Mobility Assist Device Used No (0 pt) Altered Elimination No (0 pt) Score/Fall Risk Level 0 - 2 = Low Risk Oriented to surroundings, Maintained a safe environment, Educated pt \\T\\ family on fall prevention, incl call for assistance when getting out of bed. Abuse screen: Denies threats or abuse. Nutritional screening: No deficits noted. Tuberculosis screening: No symptoms or risk factors identified. Assessment: 19:00 General: Appears in no apparent distress. uncomfortable, Behavior is cooperative. Pain: ay Complains of pain in right leg and left leg Pain currently is 10 out of 10 on a pain scale. Neuro: Level of Consciousness is awake, alert, obeys commands, Oriented to person, place, time, Speech is slurred. Cardiovascular: Capillary refill < 3 seconds Rhythm is sinus tachycardia. Respiratory: Airway is patent Respiratory effort is even, unlabored, Breath sounds with crackles bilaterally. Breath sounds are diminished bilaterally. GI: Abdomen is round. : No signs and/or symptoms were reported regarding the genitourinary system. EENT: No signs and/or symptoms were reported regarding the EENT system. Derm: No signs and/or symptoms reported regarding the dermatologic system. Musculoskeletal: No signs and/or symptoms reported regarding the musculoskeletal system. Vital Signs: 17:10 BP 132 / 61; Pulse 109; Resp 20 S; Temp 98.7(O); Pulse Ox 100% on R/A; Weight 95.25 kg aa5 (R); Height 5 ft. 7 in. (R); 19:24 Temp 100.6(O); aa5 21:00 BP 126 / 70; Pulse 102; Resp 20; Pulse Ox 100% on R/A; ay 17:10 Body Mass Index 32.89 (95.25 kg, 170.18 cm) aa5 19:24 provider notified of increased temperature aa5 ED Course: 00:00 IV discontinued, intact, bleeding controlled, No redness/swelling at site. Pressure ay dressing applied. 17:08 Patient arrived in ED. al6 17:09 Nolan Thompson PA is PHCP. cp 17:09 Nolan Novoa MD is Attending Physician. cp 17:10 Arm band placed on. aa5 17:11 Triage completed. aa5 17:24 Solomon Schulz, JOHN PAUL is Primary Nurse. rs5 17:28 Inserted saline lock: 24 gauge in right antecubital area, using aseptic technique. rs5 Blood collected. Flushed with 10 mL NS. 18:20 XRAY Chest (1 view) In Process Unspecified. EDMS 18:47 US Extremity Venous W Compression Heriberto In Process Unspecified. EDMS 19:00 Patient has correct armband on for positive identification. Placed in gown. Bed in low ay position. Call light in reach. Side rails up X2. Adult w/ patient. 19:00 No provider procedures requiring assistance completed. ay 20:17 Sejal Stoner, RN is Primary Nurse. ay 21:23 CT Chest For PE Angio In Process Unspecified. EDMS Administered Medications: 18:11 Drug: Tussionex Pennkinetic ER PO Suspension 5 ml PO once Route: PO; rs5 23:50 Follow up: Response: No adverse reaction ay 18:20 Drug: Ondansetron IVP 4 mg IVP once; over 2 minutes Route: IVP; Site: right antecubital;rs5 23:50 Follow up: Response: No adverse reaction ay 18:20 Drug: DuoNeb Nebulize (2.5 mg - 0.5 mg) 3 ml Nebulizer once Route: Nebulizer; rs5 23:50 Follow up: Response: No adverse reaction ay 23:30 Drug: predniSONE PO 60 mg PO once Route: PO; ay 23:50 Follow up: Response: No adverse reaction ay 23:30 Drug: Oseltamivir PO 75 mg PO once Route: PO; ay 23:50 Follow up: Response: No adverse reaction ay 23:30 Drug: Ibuprofen PO 800 mg PO once Route: PO; ay 23:50 Follow up: Response: No adverse reaction ay Outcome: 22:55 Discharge ordered by MD. skinner 08/12 00:00 Discharged to home ambulatory, ay Condition: stable Discharge instructions given to patient, Instructed on discharge instructions, follow up and referral plans. Demonstrated understanding of instructions, follow-up care, medications, Prescriptions given X 6 00:56 Patient left the ED. ay Signatures: Dispatcher [employer] EDMS Zahra Canas, RN RN aa5 Nolan Thompson, PA PA Solomon Amaya, RN RN rs5 Sejal Stoner, RN RN ay Brooke [id number] Corrections: (The following items were deleted from the chart) 08/11 18:11 18:10 To radiology for Extrem Venous W Compression Heriberto+[email or web address]. rs5 EDMS
[2024-08-11] MEDS ORDERED: IBUPROFEN 400 MG TAB ONE (23:40)
[2024-08-11] MEDS ORDERED: OSELTAMIVIR 75 MG CAP PO ONE (23:40)
[2024-08-11] MEDS ORDERED: predniSONE 20 MG TAB ONE (23:40)
--- NOTE | 2024-08-12 11:44 | EKG ---
Test Date: 2024-08-11 Test Time: 22:49:00 Warehouse Consultant: ADRIÁN MEASUREMENT RESULTS: Intervals: Rate: 120 MD: QRSD: 96 QT: 434 QTc: 613 [place]: P: MD: QRS: 68 T: 51 INTERPRETIVE STATEMENTS: Sinus tachycardia Nonspecific T wave abnormality Prolonged QT Abnormal ECG Compared to ECG 09/13/2014 12:02:02 T-wave abnormality now present Prolonged QT interval now present Sinus rhythm no longer present Electronically Signed On 08-12-24 11:43:33 CAR SHIFTER by Mickey Adkins
[2024-08-13 02:36] VITALS: BP 132/61; TEMP 100.6; O2SAT 100
== END 2024-08-12 00:56 | disposition home or self-care (01) ==
LOC: ER 17:05
DX: J10.1 Influenza due to other identified influenza virus with other respiratory manifestations (principal); J45.901 Unspecified asthma with (acute) exacerbation; Z11.52 Encounter for screening for COVID-19
CPT/HCPCS: 93005; 87088; 85025; 81001; 87086; 80048; 36415; 83735; 81025; 85610; 85379; 80076; 84484; 83880; 87807; 87804 ×2; 71275; 71045; 93970; 96374; 99285; 87811; Q9967; J7512; J7613; J7644; J2405

== ENCOUNTER 2024-10-13 19:15 | Emergency (ER) | payer BC ==
--- OUTSIDE RECORDS SUMMARY | 2024-10-13 19:19 | XMS REPORT | Continuity of Care Document ---
Author Name Unknown Address [address] [facility] [address] [place] [address] [facility] Address [address] [facility] [address] [place] [address] Care Team Providers Care Trouble Locator Test Desk Name Role Phone MORELCONSTANTINO SpanglerGILMA Primary Care Physician Unavailab DARA Scherer Attending Clinician Unavailab DARA Scherer Attending Clinician Unavailab Dara Scherer DO Attending Clinician [phone] VIANNEY PETTY Attending Clinician Unavailable Vianney Petty NP Attending Clinician [phone] Campaigns, Generic Provider Attending Clinician Unavailable SHIVANI LINN Attending Clinician Unavailab katie GOMEZ_GCBZW_Bell_C Attending Clinician Unavailable ROUSE_F Attending Clinician Unavailable YUNG GUEVARA Attending Clinician Unavailable ADEEL GARCIA Attending Clinician Unavailable Adeel Garcia MD Attending Clinician [phone] PRAVEEN BANEGAS Attending Clinician Unavailable Praveen Banegas MD Attending Clinician [phone] DIVYA Attending Clinician Unavailable SCOTTY KILPATRICK Attending Clinician Unavailable Scotty Otto Attending Clinician [phone] Casper Attending Clinician Unavailable VIANNEY PETTY Admitting Clinician Unavailable SHIVANI LINN Admitting Clinician Unavailab le GC_GCBZW_Bell_C Admitting Clinician Unavailable ROUSE_F Admitting Clinician Unavailable ADEEL GARCIA Admitting Clinician Unavailable PRAVEEN BANEGAS Admitting Clinician Unavailable DIVYA Admitting Clinician Unavailable Romina_Zen Admitting Clinician Unavailable Payers Payer Name Policy Type Policy Number Effective Date Expirati on Date Source [facility] [id number] 2024 00:00:00 ELLA STINSON FROM [facility] [id number] 2023 00:00:00 [facility] [id number] [facility] [id number] [place] [id number] 2023 00:00:00 Problems Condition Name Condition Details Condition Category Status Onset Date Resolution Date Last Treatment Date Treating Clinician Comments Source Other constipati on Other constipati on Disease Active 12-04 00:00: 00 [facility] Nausea and vomiting, unspecifie d vomiting type Nausea and vomiting, unspecifie d vomiting type Disease Active 12-04 00:00: 00 [facility] Obesity Obesity Problem Active 10-13 00:00: 00 [facility] Anxiety Anxiety Problem Active 10-13 00:00: 00 [facility] History of anxiety state History of Anxiety State Problem Active 2022-07 00:00: 00 [facility] History of migraine History of Migraine Problem Active 2022-07 00:00: 00 [facility] Contracept ion using injectable contracept lubna medication Contracept ion Using Injectable Contracept lubna Medication Problem Active 1-15 00:00: 00 [facility] Contracept lubna management Contracept lubna management Disease Active 09-15 00:00: 00 [facility] BV (bacterial vaginosis) BV (bacterial vaginosis) Disease Active 09-15 00:00: 00 [facility] Pain pelvic Pain pelvic Disease Active 09-15 00:00: 00 [facility] Elevated blood pressure reading without diagnosis of hypertensi on Elevated blood pressure reading without diagnosis of hypertensi on Disease Active 09-15 00:00: 00 [facility] Overweight Overweight Disease Active 11-03 00:00: 00 Overview: Formattin g of this note might be different from the original. 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 [facility] Abnormal bleeding in menstrual cycle Abnormal bleeding in menstrual cycle Disease Active 11-03 00:00: 00 [facility] Allergies, Adverse Reactions, Alerts Allergy Name Allergy Type Status Severity Reaction(s) Onset Date Inactive Date Treating Clinician Comments Source Penicill ins Propensi ty to adverse reaction s Active Anaphylaxis 11-03 00:00: 00 [facility] Penicill ins Propensi ty to adverse reaction s Active Anaphylaxis 11-03 00:00: 00 [facility] PENICILL INS Drug Class Active Anaphylaxis 11-03 00:00: 00 [facility] PENICILL INS Allergy to substanc e Active Severe Anaphylaxis [facility] Social History Social Habit Start Date Stop Date Quantity Comments Source Gender identity [facility] Sexual orientation [facility] Alcoholic beverage intake 2024-08-12 00:00:00 2024-08-12 00:00:00 Current non-drinker of alcohol (finding) [facility] History of Social function 2024-08-12 00:00:00 2024-08-12 00:00:00 [facility] Exposure to SARS-CoV-2 (event) 2022-12-03 00:00:00 2022-12-13 10:56:00 Not sure [facility] Alcohol intake 2022-12-13 00:00:00 2022-12-13 00:00:00 Current non-drinker of alcohol (finding) [facility] Tobacco use and exposure 2013-11-03 00:00:00 2013-11-03 00:00:00 Smokeless tobacco non-user [facility] Sex assigned at 1990 00:00:00 1990 00:00:00 [facility] Smoking Status Start Date Stop Date Source Never smoked tobacco [facility] Medications Ordered Medication Name Filled Medication Name Start Date Stop Date Current Medication? Ordering Clinician Indication Dosage Frequency Signature (SIG) Comments Components Source NaCl 0.9% (NS) bolus infusion 1,000 mL -16 23:30: 00 08-13 00:15 :00 No 1000mL at 999 mL/hr, 1,000 mL, IV Infusion, ONCE, 1 dose, On Aliya 08/12/24 at 1730, [facility] azithromyci n (ZITHROMAX Z-ROBERT) 250 mg tablet 08 00:00: 00 08-10 05:59 :00 Yes [id number] Take 2 tablets by mouth daily for 1 day, THEN 1 tablet daily for 4 days. [facility] metoclopram shirin HCl (REGLAN) injection 10 mg 10 18:00: 00 12-04 18:02 :00 No 10mg 10 mg, Slow IV Push, ONCE, 1 dose, On Fri12/05/23 at 1300, [facility] iopamidol (ISOVUE 370-500 mL) injection 85 mL 12-04 16:15: 00 12-04 16:30 :00 No [id number] 85mL 85 mL, Intravenou s, ONCE, 1 dose, On Fri12/05/23 at 1130, Routine [facility] NaCl 0.9% (NS) bolus infusion 1,000 mL 10 16:00: 00 12-04 18:01 :00 No 1000mL at 999 mL/hr, 1,000 mL, IV Infusion, ONCE, 1 dose, On Fri12/05/23 at 1100, [facility] ondansetron (ZOFRAN (PF)) injection 4 mg 10 15:15: 00 12-04 15:55 :00 No 4mg 4 mg, Slow IV Push, ONCE, 1 dose, On Fri12/05/23 at 1015, [facility] metoclopram shirin HCl (REGLAN) 10 mg tablet 510 00:00: 00 08-12 00:00 :00 No [id number] 10mg Take 1 tablet by mouth every 8 (eight) hours as needed for Nausea and Vomiting (N/V). [facility] polyethylen e glycol 3350 (MIRALAX) 17 gram/dose powder 12-04 00:00: 00 12-12 04:59 :00 No [id number] 17g Take 17 g by mouth in the morning for 7 days. [facility] ketorolac (TORADOL) injection 15 mg 02-08 03:15: 00 02-08 02:30 :00 No 15mg 15 mg, Slow IV Push, ONCE, 1 dose, On Fri02/07/23 at 2215, MATT [facility] NaCl 0.9% (NS) bolus infusion 500 mL 02-08 02:30: 00 02-08 03:42 :00 No 500mL at 999 mL/hr, 500 mL, IV Piggyback, ONCE, 1 dose, On Fri02/07/23 at 2130, STAT [facility] acetaminoph en (TYLENOL) tablet 650 mg 12-13 18:45: 00 12-13 18:48 :00 No 650mg 650 mg, Oral, ONCE, 1 dose, On Fri12/13/22 at 1345, MATT [facility] ibuprofen (IBU) tablet 600 mg 12-13 18:45: 00 12-13 18:49 :00 No 600mg 600 mg, Oral, ONCE, 1 dose, On Fri12/13/22 at 1345, MATT [facility] medroxyprog esterone 150 mg/mL intramuscul ar suspensionI nject 1 mL every 3 months by intramuscul ar route. medroxyprog esterone 150 mg/mL intramuscul ar suspensionI nject 1 mL every 3 months by intramuscul ar route. 15 16:53: 19 No medroxypro gesterone 150 mg/mL intramuscu lar suspension Inject 1 mL every 3 months by intramuscu lar route. [facility] ondansetron 4 mg tablet 0 9-25 00:00: 00 08-12 00:00 :00 No 4mg Take 1 tablet by mouth every 8 (eight) hours as needed for Nausea and Vomiting (N/V). [facility] metroNIDAZO LE (FLAGYL) 500 mg tablet 09-15 00:00: 00 08-12 00:00 :00 No [id number] 500mg Take 1 Tab by mouth 2 (two) times daily. [facility] norgestimat e-ethinyl estradiol (ORTHO TRI-CYCLEN LO, 28,) 0.18/0.215 mg/ 0.25 mg-25 mcg tablet 09-15 00:00: 00 08-12 00:00 :00 No [id number] 1{tbl} Take 1 Tab by mouth daily. [facility] multivitami n multivitami n No multivitam in [facility] Medical Hair, Skin and Nails Advanced one daily Hair, Skin and Nails Advanced one daily No Hair, Skin and Nails Advanced one daily [facility] One-A-Day Womens Formula one daily One-A-Day Womens Formula one daily No One-A-Day Womens Formula one daily [facility] Immunizations Ordered Immunization Name Filled Immunization Name Date Status Comments Source Rubella 2023-12-17 00:00:00 Completed [facility] TD, NOS 2023-12-17 00:00:00 Completed [facility] Rubella 2023-12-05 10:00:00 Completed [facility] TD, NOS 2023-12-05 10:00:00 Completed [facility] Rubella 2010-02-13 00:00:00 Completed Rubella 2010-02-13 00:00:00 Completed [facility] Rubella 2010-02-13 00:00:00 Completed [facility] Rubella 2010-02-13 00:00:00 Completed [facility] TD, NOS 2006-07-28 00:00:00 Completed Td 2006-07-28 00:00:00 Completed [facility] TD, NOS 2006-07-28 00:00:00 Completed [facility] TD, NOS 2006-07-28 00:00:00 Completed [facility] Vital Signs Vital Name Observation Time Observation Value Comments S ource Systolic blood pressure 2024-08-12 23:46:16 119 mm[Hg] [facility] Diastolic blood pressure 2024-08-12 23:46:16 67 mm[Hg] [facility] Heart rate 2024-08-12 23:46:16 98 /min [facility] Body temperature 2024-08-12 23:46:16 37 Rhonda [facility] Respiratory rate 2024-08-12 23:46:16 15 /min [facility] Oxygen saturation in Arterial blood by Pulse oximetry 2024-08-12 23:46:16 96 /min [facility] Body height 2024-08-12 22:17:00 170.2 cm [facility] Body weight 2024-08-12 22:17:00 95.255 kg [facility] BMI 2024-08-12 22:17:00 32.89 kg/m2 [facility] Systolic blood pressure 2024-08-04 19:36:00 102 mm[Hg] [facility] Diastolic blood pressure 2024-08-04 19:36:00 76 mm[Hg] [facility] Heart rate 2024-08-04 19:36:00 77 /min [facility] Body temperature 2024-08-04 19:36:00 36.78 Rhonda [facility] Respiratory rate 2024-08-04 19:36:00 16 /min [facility] Oxygen saturation in Arterial blood by Pulse oximetry 2024-08-04 19:36:00 97 /min [facility] Body height 2024-08-04 17:39:00 170.2 cm [facility] Body weight 2024-08-04 17:39:00 95.255 kg [facility] BMI 2024-08-04 17:39:00 32.89 kg/m2 [facility] Systolic blood pressure 2023-12-05 18:01:12 113 mm[Hg] [facility] Diastolic blood pressure 2023-12-05 18:01:12 70 mm[Hg] [facility] Heart rate 2023-12-05 18:01:12 65 /min [facility] Respiratory rate 2023-12-05 18:01:12 16 /min [facility] Oxygen saturation in Arterial blood by Pulse oximetry 2023-12-05 18:01:12 98 /min [facility] Body temperature 2023-12-05 14:58:00 37.11 Rhonda [facility] Body height 2023-12-05 14:58:00 170.2 cm [facility] Body weight 2023-12-05 14:58:00 95.255 kg [facility] BMI 2023-12-05 14:58:00 32.89 kg/m2 [facility] BMI (Body Mass Index) 2023-10-14 00:00:00 33 kg/m2 [facility] Body Weight 2023-10-14 00:00:00 210.6 [lb_av] [facility] Height 2023-10-14 00:00:00 67 [in_i] [facility] BP Diastolic 2023-10-14 00:00:00 70 mm[Hg] [facility] BP Systolic 2023-10-14 00:00:00 124 mm[Hg] [facility] Height 2023-05-13 00:00:00 67 [in_i] [facility] BP Systolic 2023-05-13 00:00:00 114 mm[Hg] [facility] Body Weight 2023-05-13 00:00:00 3328 [oz_av] [facility] BMI (Body Mass Index) 2023-05-13 00:00:00 32.6 kg/m2 [facility] BP Diastolic 2023-05-13 00:00:00 64 mm[Hg] [facility] Systolic blood pressure 2023-02-08 03:00:00 99 mm[Hg] [facility] Diastolic blood pressure 2023-02-08 03:00:00 83 mm[Hg] [facility] Heart rate 2023-02-08 03:00:00 60 /min [facility] Respiratory rate 2023-02-08 03:00:00 20 /min [facility] Oxygen saturation in Arterial blood by Pulse oximetry 2023-02-08 03:00:00 98 /min [facility] Body temperature 2023-02-08 00:35:00 37.22 Rhonda [facility] Body height 2023-02-08 00:35:00 170.2 cm [facility] Body weight 2023-02-08 00:35:00 95.255 kg [facility] BMI 2023-02-08 00:35:00 32.89 kg/m2 [facility] Systolic blood pressure 2022-12-13 15:58:00 126 mm[Hg] [facility] Diastolic blood pressure 2022-12-13 15:58:00 78 mm[Hg] [facility] Heart rate 2022-12-13 15:58:00 81 /min [facility] Body temperature 2022-12-13 15:58:00 36.67 Rhonda [facility] Respiratory rate 2022-12-13 15:58:00 18 /min [facility] Body height 2022-12-13 15:58:00 170.2 cm [facility] Body weight 2022-12-13 15:58:00 97.523 kg [facility] BMI 2022-12-13 15:58:00 33.67 kg/m2 [facility] Oxygen saturation in Arterial blood by Pulse oximetry 2022-12-13 15:58:00 99 /min [facility] Oxygen saturation in Arterial blood by Pulse oximetry 2022-02-11 15:48:00 99 /min [facility] Systolic blood pressure 2022-02-11 14:52:00 128 mm[Hg] [facility] Diastolic blood pressure 2022-02-11 14:52:00 80 mm[Hg] [facility] Heart rate 2022-02-11 14:52:00 75 /min [facility] Body temperature 2022-02-11 14:52:00 36.17 Rhonda [facility] Respiratory rate 2022-02-11 14:52:00 16 /min [facility] Body height 2022-02-11 14:52:00 170.2 cm [facility] Body weight 2022-02-11 14:52:00 92.534 kg [facility] BMI 2022-02-11 14:52:00 31.95 kg/m2 [facility] BP Diastolic 2018-08-11 00:00:00 73 mm[Hg] [facility] Height 2018-08-11 00:00:00 67 [in_i] [facility] BMI (Body Mass Index) 2018-08-11 00:00:00 24.4 kg/m2 [facility] BP Systolic 2018-08-11 00:00:00 122 mm[Hg] [facility] Body Weight 2018-08-11 00:00:00 156 [lb_av] [facility] Procedures Procedure Date / Time Performed Performing Clinicia n Source XR CHEST 1 VW 2024-08-04 18:40:00 Vianney Petty [facility] COMP. METABOLIC PANEL ([id number]) 2023-12-05 16:48:00 Shivani Linn [facility] CT ABDOMEN PELVIS W CONTRAST 2023-12-05 16:21:00 Shivani Linn [facility] POCT TEST 2023-12-05 16:03:00 Felicita Linn [facility] URINALYSIS 2023-12-05 15:48:00 [facility] L[facility] 2023-12-05 15:38:00 Shivani Linn Un [facility] [place] [place] CBC WITH DIFF 2023-12-05 15:38:00 [facility], ankle, w/o contrast 2023-05-13 00:00:00 [facility] US OVARY TORSION 2023-02-08 04:21:13 Adeel Garcia [facility] 2023-02-08 01:11:00 [facility]el [facility] COMP. METABOLIC PANEL ([id number]) 2023-02-08 00:54:00 Adeel Garcia [facility] TOTAL BETA HCG ASSAY 2023-02-08 00:54:00 Adeel Garcia [facility] CBC WITH DIFF 2023-02-08 00:54:00 Adeel Garcia [facility] NOTICE OF PRIVACY PRACTICES 2023-02-08 00:35:46 Doctor Unassigned, [place] [facility] CONSENT/REFUSAL FOR DIAGNOSIS AND TREATMENT 2023-02-08 00:35:00 Doctor Unassigned, [place] [facility] XR LUMBAR SPINE 3 VW 2022-12-13 18:05:59 Praveen Banegas [facility] XR SPINE THORACIC 2 VW 2022-12-13 18:05:59 Elisa Banegas [facility] XR CERVICAL SPINE 3 VW 2022-12-13 18:05:59 Elisa Banegas [facility] CONSENT/REFUSAL FOR DIAGNOSIS AND TREATMENT 2022-12-13 15:42:52 Doctor Unassigned, [place] [facility] POCT TEST 2022-02-11 15:20:00 Scotty Kilpatrick [facility] CONSENT/REFUSAL FOR DIAGNOSIS AND TREATMENT 2022-02-11 14:44:37 Doctor Unassigned, [place] [facility] Plan of Care Planned Activity Planned Date Details Comments Source Diagnostic Test Pending 2023-10-14 00:00:00 pap, LB + HPV [code = pap, LB + HPV] [facility] Medical Diagnostic Test Pending 2023-10-14 00:00:00 Indirect antiglobulin test.IgG specific reagent [Presence] in Serum or Plasma [code = 1005-8] [facility] Medical Diagnostic Test Pending 2018-08-11 00:00:00 urinalysis, dipstick [code = urinalysis, dipstick] [facility] Diagnostic Test Pending 2018-08-11 00:00:00 test, urine [code = test, urine] [facility] Future Scheduled Test Improved r ight ankle pain, and improved URI symptoms. [code = Improved right ankle pain, and improved URI symptoms.] [facility] Future Appointment 2024-10-14 08:45:[address]; [address], [place] [id number] [facility] Medical Instructions [facility] Encounters Start Date/Time End Date/Time Encounter Type Admission Type Attending Clinicians Care Facility Care Department Encounter ID Source 2024-08-12 16:25:00 2024-08-12 18:30:00 Emergency X DARA REILLY SANDRA [facility] ERT [id number] [facility] 2024-08-12 16:25:00 2024-08-12 18:30:00 Emergency Dara Reilly [facility] [id number] [facility] 2024-08-04 11:40:00 2024-08-04 13:38:00 Emergency X VIANNEY PETTY [facility] ERT [id number] [facility] 2024-08-04 11:40:00 2024-08-04 13:38:00 Emergency Vianney Petty [facility] [id number] [id number] [id number] [id number] [facility] 2023-12-17 00:00:00 2023-12-17 10:50:00 Letter (Out) Campaigns, Generic Provider [facility] [id number] [id number] [id number] [id number] [facility] 2023-12-05 10:00:00 2023-12-05 13:10:00 Emergency X SHIVANI LINN [facility] ERT [id number] [facility] 2023-12-05 10:00:00 2023-12-05 13:10:[address] [facility] [id number] [id number] [id number] [id number] [facility] 2023-10-22 00:00:00 2023-10-22 00:00:00 Outpatient GC_GCBZW_Be ll_C [facility] PRIV [id number] [facility] 2023-10-14 00:00:00 2023-10-14 00:00:00 Outpatient GC_GCBZW_Be ll_C PRIV [facility] [id number] [facility] 2023-10-14 00:00:00 2023-10-14 00:00:00 Anita Richmond, STATISTICAL METHODS PROFESSOR: [address] [place], [facility] [address], [place] [address] , Ph. [facility] - [facility]GCBZ[facility]* [id number] [facility] 2023-10-10 00:00:00 2023-10-10 00:00:00 Outpatient GC_GCBZW_Be ll_C [facility] [id number] [facility] 2023-09-12 00:00:00 2023-09-12 00:00:00 Outpatient ROUSE_F [facility] [id number] 2023-08-08 00:00:00 2023-08-08 00:00:00 Outpatient ROUSE_F [facility] [id number] 2023-07-04 00:00:00 2023-07-04 00:00:00 Outpatient BRADEN_F [facility] [id number] 2023-07-03 00:00:00 2023-07-03 00:00:00 Outpatient BRADEN_F [facility] [id number] 2023-06-12 00:00:00 2023-06-12 00:00:00 Outpatient BRADEN_F [facility] [id number] 2023-05-13 00:00:00 2023-05-13 00:00:00 Outpatient BRADEN_F [facility] [id number] 2023-05-13 00:00:00 2023-05-13 00:00:00 NOE Godinez: [address], [address], [place] [address] , Ph. [phone] [facility] [place] - [facility] [address] [id number] [facility] 2023-05-09 00:00:00 2023-05-09 00:00:00 Outpatient TAMICA_F [id number] 2023-02-13 10:30:00 2023-02-13 10:30:00 Outpatient YUNG GUEVARA [id number] [facility] 2023-02-07 19:44:00 2023-02-07 23:57:00 Emergency X ADEEL GARCIA [facility] ERT [id number] [facility] 2023-02-07 19:44:00 2023-02-07 23:57:[address] [facility] [id number] 350.1.13.10 4.2.7.2.686 [id number] [facility] 2022-12-13 10:58:00 2022-12-13 14:02:00 Emergency X PRAVEEN BANEGAS [facility] ERT [id number] [facility] 2022-12-13 10:58:00 2022-12-13 14:02:[address] [facility] [id number] 350.1.13.10 [id number] [id number] [facility] 2022-02-22 00:00:00 2022-02-22 00:00:00 Outpatient JAYLEN_ADAN [facility]IV[facility] [id number] [facility] 2022-02-11 09:53:00 2022-02-11 10:58:00 Emergency X SCOTTY KILPATRICK [facility] ERT [id number] [facility] 2022-02-11 09:53:00 2022-02-11 10:58:[address] [facility] [id number] [id number] [id number] [id number] [facility] 2020-06-14 02:40:00 2020-06-14 02:40:00 Outpatient G_Pappas [facility] [id number] [facility] 2018-08-11 00:00:00 2018-08-11 00:00:00 Brooklyn Sandoval, NP: [address] [place] [phone] , Ph. [phone] [facility] [address] [facility] Results Test Description Test Time [...] in left central lung, consistent with viralinfection. [facility] CT ABDOMEN PELVIS W CONTRAST 17:11:28 CT [...] There are mild degenerative changesof the hips. [facility]:18[facility]09* Test Item Value Reference Range Interpretation Comme [facility] LIPASE (test code = 7986215864) 100 U/L 0-220 Lab Interpretation (test cod e = 49577-3) [facility] [id number] 16:03:00* Test Item Value Reference Range Interpretation Comme nts POCT PREG (test code = 1605) Negative On board controls acceptable with C Line (test code = 3574) Yes POCT PREG LOT # (test code = 3575) [id number] POCT PREG TEST DATE ( test code = 3576) 11-28-2024 Lab Interpretation (test cod e = 71444-5) [facility] [id number] 01:59:28BETA HCG<2.39Non- female and male patients: <5 mIU/mL02/07/2023 8:59 PM [facility] Gestational Age ?Range (mIU/mL) 1-10 ?Weeks ?[id number] Weeks ?[id number] Weeks ?[id number] Weeks ?[id number] Biotin has been reported to cause a negative bias, interpret results relative to patient's use of biotin.[facility] COMP. METABOLIC PANEL (85496)2023-02-08 01:31:13* Test Item Value Reference Range Interpretation Comme nts NA (test code = 4180831437) 140 mmol/L 135-145 K (test code = 0015829178) 4.1 mmol/L 3.5-5.0 CL (test code = 1485352479) 107 mmol/L 98-108 CO2 TOTAL (test code = 3241401302) 24 mmol/L 23-31 AGAP (test code = 1586729263) 9 2-16 BUN (test code = 9891251645) 12 mg/dL 7-23 GLUCOSE (test code = 4302046091) 92 mg/dL 70-110 CREATININE (test code = 2571192252) 0.65 mg/dL 0.50-1.04 TOTAL BILI (test code = 4917187059) 0.5 mg/dL 0.1-1.1 CALCIUM (test code = 7857260890) 9.2 mg/dL 8.6-10.6 T PROTEIN (test code = 7588589395) 7.5 g/dL 6.3-8.2 ALBUMIN (test code = 0140252967) 4.3 g/dL 3.5-5.0 ALK PHOS (test code = 5247517969) 62 U/L 34-122 ALTv (test code = 1742-6) 68 U/L 5-35 H AST(SGOT) (test code = 8001323170) 35 U/L 13-40 eGFR (test code = 1363204862) 107.0 mL/min/1.73m2 SAGRARIO (test code = SAGRARIO) [...] imaging tests). Lab Interpretation (test code = 18697-9) Abnormal [facility] WITH [id number] 01:16:54* Test Item Value Reference Range Interpretation Comme nts WBC (test code = 6690-2) 8.41 See_Comment [Automated [employer]itmusic] The system which generated this result transmitted reference range: 4.30 - 11.10 10*3/?L. The reference range was not used to interpret this result as normal/abnormal. RBC (test code = 789-8) 4.17 See_Comment [Unidesk] The system which generated this result transmitted [...] g/dL 31.6-35.1 H RDW-SD (test code = 95725-6) 39.3 fL 39.0-49.9 RDW-CV (test code = 788-0) 11.9 % 12.0-15.5 L PLT (test code = 777-3) 189 See_Comment [Automated messa ge] The system which generated this result transmitted reference range: 166 - 358 10*3/?L. The reference range was not used to interpret this result as normal/abnormal. MPV (test code = 12058-5) 11.1 fL 9.5-12.9 NRBC/100 WBC (test code = 9234664578) 0.0 See_Comment [Automated me ssage] The system which generated this result transmitted reference range: 0.0 - 10.0 /100 WBCs. The reference range was not used to interpret this result as normal/abnormal. NRBC x10^3 (test code = 0827572867) See_Comment [Automated messa ge] The system which generated this result transmitted reference range: 10*3/?L. The reference range was not used to interpret this result as normal/abnormal. GRAN MAT (NEUT) % (test code = 770-8) 70.3 % IMM GRAN % (test code = 4309827921) 0.20 % LYMPH % (test code = 736-9) 22.5 % MONO % (test code = 5905-5) 5.6 % EOS % (test code = 713-8) 1.0 % BASO % (test code = 706-2) 0.4 % GRAN MAT x10^3(ANC) (test code = 8183636749) 5.92 10*3/uL 1.88-7.09 IMM GRAN x10^3 (test code = 8946260041) 0.00-0.06 LYMPH x10^3 (test code = 731-0) 1.89 10*3/uL 1.32-3.29 MONO x10^3 (test code = 742-7) 0.47 10*3/uL 0.33-0.92 EOS x10^3 (test code = 711-2) 0.08 10*3/uL 0.03-0.39 BASO x10^3 (test code = 704-7) 0.03 10*3/uL 0.01-0.07 Lab Interpretation (test code = 97057-5) [id number]* Test Item Value Reference Range Interpretation Comme nts POCT PREG (test code = 1605) negative On board controls acceptable with C Line (test code = 3574) present POCT PREG LOT # (test code = 3575) [id number] POCT PREG TEST DATE ( test code = 3576) 05-27-23 Lab Interpretation (test cod e = 83999-0) [facility] - Urine 2018-08-11 16:26:08* Test Item Value Reference Range Interpretation Comme nts Leukocytes (test code = Leukocytes) Negative Nitrite (test code = Nitrite) negative Urobilinogen (test code = Urobilinogen) 1 Protein (test code = Protein) Negative pH (test code = pH) 7.0 Blood (test code = Blood) Large Specific [place] (test code = Specific [place]) 1.015 Ketone (test code = Ketone) Negative Bilirubin (test code = Bilirubin) Negative Glucose (test code = Glucose) Negative Appearance (test code = Appearance) Clear Color (test code = Color) Yellow [id number] 16:25:02* Test Item Value Reference Range Interpretation Comme nts Test (test code = Test) negative [facility] Notes Date/Time Note Provider Source 2024-08-12 18:20:00 Pt discharged with diagnosis of influenza and N/V. Printed and verbal instructions reviewed with and given to pt. Pt verbalized understanding of teaching and recommended follow-up. Denies questions or concerns at this time. Pt ambulatory at discharge. Appears in no apparent distress. No ataxia noted. Accompanied by family. LE PHONE SALESPERSON Yari Nelson RN [facility] 2024-08-12 16:13:56 Gabino Juan is a 33 year old female arrived to ED via EMS with CC of chest pain, SOB and fever 103F today. Vomiting x4 days. Seen at [facility] ED yesterday and diagnosed with Flu and possible pneumonia. Sent home with "6 prescriptions, has not started taken them". Hx of asthma. 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 HI Curtis RN [facility] 2024-08-12 16:13:00 [facility] Emergency Department Note Patient Name: Gabino Juan Date of : 1990 33 year old female Treatment Room: [facility] Primary Care Physician: Aileen Morel Patient Escorted by: Self [9] Mode of Arrival: EMS - [facility] ([place]) [43] EMS Treatment Prior to ED Arrival: Travel and Exposure Screening: Symptoms Does patient have any of these symptoms?: (not recorded) Exposure Screening Has patient had contact with someone with a communicable disease in the last month?: (not recorded) Diseases exposed to:: (not recorded) Is Patient ?: (not recorded) Exposure Date: (not recorded) Chief Complaint: Chief Complaint Patient presents with FLU History of Present Illness: The patient presents from home with EMS for evaluation for nausea, vomiting, cough, chest pain as well as shortness of breath and not feeling well that started yesterday. She denies any sick contacts. She was seen at [place] emergency department yesterday evening and diagnosed with influenza as well as pneumonia. She reports she was prescribed 6 different medications and had a friend pick them up today. She felt bad enough to dial 911 and come to the ER before her friend was able to bring the medications to her house. Therefore she had no medications for symptoms at home. No history of asthma. No history of diabetes or high blood pressure. She was given 4 mg of Zofran as well as 1 g of Tylenol by EMS prior to arrival. She reports she feels lightheaded due to her nausea and vomiting. She does not smoke. Here for evaluation. Past Medical History/Immunizations: Past Medical History: Diagnosis Date Asthma BV (bacterial vaginosis) 09/15/2015 Female infertility Allergies: Allergies Allergen Reactions Penicillins Anaphylaxis Past Social History: Tobacco Use Never smoked or used smokeless tobacco. Alcohol Use No. Drug Use No. Sexual Activity Sexually active; Partners: Male; Control/Protection: Injection. Comments: Last intercourse Friday Past Surgical History: Past Surgical History: Procedure Laterality Date INCISION AND DRAINAGE OF ABSCESS Review of Systems: Review of Systems Physical Exam: ED Triage Vitals [08/12/24 1617] Weight 95.3 kg (210 lb) Actual or estimated Estimated by patient/family report Height 1.702 m (5' 7") BP 123/68 Pulse 104 Resp 24 Temp 37.1 ?C (98.8 ?F) Temp source Oral SpO2 98 % Measured on Room air Physical Exam Radiology: No orders to display Lab Results: Lab Results - No data to display EKG: If EKG completed, see Procedure Note. Orders and Treatments: No orders of the defined types were placed in this encounter. Orders Placed This Encounter Medications NaCl 0.9% (NS) bolus infusion 1,000 mL First Provider Eval: ED Events Date/Time Event User Comments 08/12/24 161 Medical Screening Begins DARA REILLY DO -- 08/12/24 1616 First Provider Evaluation DARA REILLY DO -- ED COURSE Diagnosis/Impression as of 08/12/24 1732 Influenza Nausea and vomiting, unspecified vomiting type Procedures: Procedures MDM: Medical Decision Making The patient presents from home with EMS for evaluation for nausea, vomiting, cough, chest pain as well as shortness of breath and not feeling well that started yesterday. She denies any sick contacts. She was seen at [place] emergency department yesterday evening and diagnosed with influenza as well as pneumonia. She reports she was prescribed 6 different medications and had a friend pick them up today. She felt bad enough to dial 911 and come to the ER before her friend was able to bring the medications to her house. Therefore she had no medications for symptoms at home. No history of asthma. No history of diabetes or high blood pressure. She was given 4 mg of Zofran as well as 1 g of Tylenol by EMS prior to arrival. She reports she feels lightheaded due to her nausea and vomiting. She does not smoke. Vital signs are stable in the ER. Her lungs are clear bilaterally. Her heart is regular rhythm. Will give the patient IV fluids since her nausea and vomiting has resolved after the Zofran given by EMS. She reports that one of the medications she was prescribed yesterday was Zofran. No concern for ACS and her presentation is atypical for this. Anticipate discharge home later. 1732 the patient is doing well here in the ER. She is feeling better after the IV fluids -. Her friend did pick and shovel man the prescriptions prescribed to her yesterday evening while at [facility] and they are waiting for her to use at home. She remained stable here in the ER and is okay for discharge home with PCP follow-up. Problems Addressed: Influenza: acute illness or injury Nausea and vomiting, unspecified vomiting type: acute illness or injury Amount and/or Complexity of Data Reviewed Independent Historian: EMS Risk OTC drugs. Prescription drug management. Flowsheet Documentation: Scoring Tools: No data recorded Disposition/Condition: ED Disposition ED Disposition Discharge Condition Stable Comment -- Discharge Medications: Current Discharge Medication List STOP taking these medications metoclopramide HCl (REGLAN) 10 mg tablet Comments: Reason for Stopping: ondansetron 4 mg tablet Comments: Reason for Stopping: metroNIDAZOLE (FLAGYL) 500 mg tablet Comments: Reason for Stopping: norgestimate-ethinyl estradiol (ORTHO TRI-CYCLEN LO, 28,) 0.18/0.215 mg/ 0.25 mg-25 mcg tablet Comments: Reason for Stopping: Follow-up: Electronically signed by: Dara Reilly DO 08/12/24 1732 [facility] 2024-08-04 13:37:40 Pt discharged with diagnosis of viral bronchitis. Printed and verbal instructions reviewed with and given to pt. Prescriptions given x 1. Pt verbalized understanding of teaching, medication, and recommended follow-up. Denies questions or concerns at this time. Pt ambulatory at discharge. Appears in no apparent distress. No ataxia noted. [facility] 2024-08-04 11:38:27 Pt to ED CO cough, sore throat, and bilateral ear pain beginning Friday Evening. [facility] Yari Nelson RN [facility] 2023-12-05 13:09:38 Patient given discharge instructions on nausea, constipation. Given prescription X 2 for reglan and miralax. Advised to follow up with pcp. Pt left ER ambulatory, no signs of distress. Anita rOtiz RN [facility] 2023-12-05 09:57:47 Patient states "I have been nauseous for over a week, but I have been vomiting for the past 4 days." Ricardo Mccrary RN [facility]
[2024-10-13] MEDS ORDERED: LIDOCAINE 1% MPF 5 ML VIAL ONE (19:34)
[2024-10-13] MEDS ORDERED: ONDANSETRON 4 MG (ODT) TAB ONE (19:40)
[2024-10-13 19:50] LABS: Specific Gravity 1.017 (1.005-1.030)
--- NOTE | 2024-10-13 20:24 | ER ---
Nurse's Notes [facility] Name: Karen Juan Age: 33 yrs Sex: Female : 1990 Arrival Date: 10/13/2024 Time: 19:15 Bed 15 Private MD: Diagnosis: Splinter in left upper thigh, removed Presentation: 10/13 19:28 Chief complaint: Patient states: Splinter in left upper thigh. Pt states that she tried cm10 to remove it at home and it broke. Coronavirus screen: Client denies travel out of the [place] in the last 14 days. Ebola Screen: Patient denies travel to an Ebola-affected area in the 21 days before illness onset. Initial Sepsis Screen: Does the patient meet any 2 criteria? No. Patient's initial sepsis screen is negative. Does the patient have a suspected source of infection? No. Patient's initial sepsis screen is negative. Risk Assessment: Do you want to hurt yourself or someone else? Patient reports no desire to harm self or others. Onset of symptoms was October 13, 2024. 19:28 Method Of Arrival: Ambulatory cm10 19:28 Acuity: LUL 4 cm10 Triage Assessment: 19:30 General: Appears in no apparent distress. uncomfortable, Behavior is calm, cooperative. cm10 Pain: Complains of pain in lateral aspect of left thigh Pain does not radiate. Pain currently is 8 out of 10 on a pain scale. Quality of pain is described as burning. Neuro: No deficits noted. Level of Consciousness is awake, alert, obeys commands, Oriented to person, place, time, situation, Appropriate for age. Respiratory: No deficits noted. Airway is patent Respiratory effort is even, unlabored, Respiratory pattern is regular, symmetrical. 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 - Infectious Disease History:: Denies. - Social history:: Smoking status: Patient denies any tobacco usage or history of. Screenin:50 [facility] ED Fall Risk Assessment (Adult) History of falling in the last 3 months, al5 including since admission No falls in past 3 months (0 pts) Confusion or Disorientation No (0 pts) Intoxicated or Sedated No (0 pts) Impaired Gait No (0 pts) Mobility Assist Device Used No (0 pt) Altered Elimination No (0 pt) Score/Fall Risk Level 0 - 2 = Low Risk Oriented to surroundings, Maintained a safe environment, Hourly rounding (assess needs \T\ fall precautionary measures) done. Abuse screen: Denies threats or abuse. Denies injuries from another. Nutritional screening: No deficits noted. Tuberculosis screening: No symptoms or risk factors identified. Assessment: 19:49 General: Appears in no apparent distress. Behavior is calm, cooperative. Pain: al5 Complains of pain in lateral aspect of left thigh. Neuro: Level of Consciousness is awake, alert, obeys commands, Oriented to person, place, time, situation. Cardiovascular: Capillary refill < 3 seconds Patient's skin is warm and dry. Respiratory: Airway is patent Respiratory effort is even, unlabored, Respiratory pattern is regular, symmetrical. GI: No signs and/or symptoms were reported involving the gastrointestinal system. : No signs and/or symptoms were reported regarding the genitourinary system. EENT: No signs and/or symptoms were reported regarding the EENT system. Derm: splinter to L lateral thigh. Musculoskeletal: No signs and/or symptoms reported regarding the musculoskeletal system. 20:57 Reassessment: Patient appears in no apparent distress at this time. Patient and/or al5 family updated on plan of care and expected duration. Pain level reassessed. Patient is alert, oriented x 3, equal unlabored respirations, skin warm/dry/pink. splinter removed. Vital Signs: 19:28 BP 130 / 78; Pulse 76; Resp 15; Temp 98.5(O); Pulse Ox 98% on R/A; Weight 93.89 kg; cm10 Height 5 ft. 7 in. ; Pain 8/10; 20:30 BP 123 / 75; Pulse 77; Resp 18; Pulse Ox 98% on R/A; al5 19:28 Body Mass Index 32.42 (93.89 kg, 170.18 cm) cm10 19:28 Pain Scale: Adult cm10 ED Course: 19:19 Patient arrived in ED. gm2 19:20 Macarena Hines PA-C is PHCP. sb4 19:20 Petr Medel MD is Attending Physician. sb4 19:29 Triage completed. cm10 19:30 Arm band placed on right wrist. Patient placed in an exam room, on a stretcher. cm10 19:32 Sonam Baird, RN is Primary Nurse. al5 19:50 Patient has correct armband on for positive identification. Bed in low position. Call al5 light in reach. Side rails up X2. Provided Education on: plan of care. 19:50 Patient did not have IV access during this emergency room visit. al5 20:00 Assisted provider with: splinter removal. al5 Administered Medications: 19:41 Drug: Ondansetron PO 4 mg PO once Route: PO; al5 20:55 Follow up: Response: No adverse reaction; Nausea is decreased al5 20:00 Drug: Lidocaine Infiltration (1 %) 5 ml 5 ml Infiltration once; to bedside {Note: given al5 by provider.} Volume: 5 ml; Route: Infiltration; 20:55 Follow up: Response: No adverse reaction al5 Medication: 19:49 VIS not applicable for this client. al5 Outcome: 20:23 Discharge ordered by . sb4 21:03 Discharged to home ambulatory, with family, al5 21:03 Condition: good 21:03 Discharge instructions given to patient, Instructed on discharge instructions, follow up and referral plans. Demonstrated understanding of instructions, follow-up care, 21:03 Patient left the ED. al5 Signatures: Macarena Hines PA-C PA-C sb4 Eliane Song RN RN 10 Kathleen Wallis 2 Sonam Baird RN RN al5
--- NOTE | 2024-10-13 20:24 | EDPHYS ---
Physician Documentation [facility] Name: Karen Juan Age: 33 yrs Sex: Female : 1990 Arrival Date: 10/13/2024 Time: 19:15 Bed 15 Private MD: ED Physician Petr Medel HPI: 10/13 19:27 This 33 yrs old Female presents to ER via Unassigned with complaints of Splinter in leg.sb4 19:27 Brushed left upper lateral thigh against an antique piece of wood furniture, watching a sb4 splinter. States she attempted to remove it and part of it broke off and the other piece is stuck under her skin. She is complaining of a burning sensation to the area. 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 - Infectious Disease History:: Denies. - Social history:: Smoking status: Patient denies any tobacco usage or history of. ROS: 19:27 Constitutional: Negative for fever, chills, and weight loss, sb4 19:27 Skin: Positive for Per HPI, 19:27 All other systems are negative, Exam: 19:27 Constitutional: This is a well developed, well nourished patient who is awake, alert, sb4 and in no acute distress. Head/Face: Normocephalic, atraumatic. Eyes: Extra-ocular motions intact. Periorbital areas with no swelling, redness, or edema. ENT: Mucous membranes moist. Respiratory: No increased work of breathing, no retractions or nasal flaring. 19:27 Skin: injury, Small foreign body noted subcutaneously on left lateral upper thigh with mild surrounding bruising and cellulitis, Vital Signs: 19:28 BP 130 / 78; Pulse 76; Resp 15; Temp 98.5(O); Pulse Ox 98% on R/A; Weight 93.89 kg; cm10 Height 5 ft. 7 in. ; Pain 8/10; 20:30 BP 123 / 75; Pulse 77; Resp 18; Pulse Ox 98% on R/A; al5 19:28 Body Mass Index 32.42 (93.89 kg, 170.18 cm) cm10 19:28 Pain Scale: Adult cm10 Procedures: 20:26 Foreign Body Removal: a wood shaving, from the left lateral aspect of left thigh, by sb4 using a hemostat, incising to remove, using lidocaine 1% without epinephrine to anesthesize the area, Dressing: bandaid, The patient tolerated the removal well. MDM: 19:20 Medical Screening Exam initiated sb4 20:27 Data reviewed: vital signs, nurses notes, and as a result, I will discharge patient. sb4 Counseling: I had a detailed discussion with the patient and/or guardian regarding the historical points, exam findings, and any diagnostic results supporting the discharge/admit diagnosis, the need for outpatient follow up, for definitive care, to return to the emergency department if symptoms worsen or persist or if there are any questions or concerns that arise at home. 10/13 19:40 Order name: Test, Urine; Complete Time: 19:52 sb4 10/13 19:26 Order name: Suture Tray at Bedside; Complete Time: 19:41 sb4 Administered Medications: 19:41 Drug: Ondansetron PO 4 mg PO once Route: PO; al5 20:55 Follow up: Response: No adverse reaction; Nausea is decreased al5 20:00 Drug: Lidocaine Infiltration (1 %) 5 ml 5 ml Infiltration once; to bedside {Note: given al5 by provider.} Volume: 5 ml; Route: Infiltration; 20:55 Follow up: Response: No adverse reaction al5 Disposition Summary: 10/13/24 20:23 Discharge Ordered Notes: Location: Home sb4 Problem: new sb4 Symptoms: have improved sb4 Condition: Stable sb4 Diagnosis - Splinter in left upper thigh, removed sb4 Followup: sb4 - With: Private Physician - When: As needed - Reason: Recheck today's complaints, Re-evaluation by your physician Discharge Instructions: - Discharge Summary Sheet sb4 - Nonsutured Laceration Care sb4 - Wound Care, Adult sb4 Forms: - Patient Portal Instructions sb4 - Leadership Thank You Letter sb4 Signatures: Dispatcher [employer] Macarena Chakraborty PA-C PA-C sb4 Eliane Song RN RN cm10 Sonam Baird RN RN al5 Corrections: (The following items were deleted from the chart) 19:40 19:40 Test, Urine+UC.LAB.BRZ ordered. EDMS EDMS
[2024-10-14 00:53] VITALS: TEMP 98.5; O2SAT 98
[2024-10-14 00:55] VITALS: BP 123/75
== END 2024-10-13 21:03 | disposition home or self-care (01) ==
LOC: ER 19:15
DX: S70.352A Superficial foreign body, left thigh, initial encounter (principal)
CPT/HCPCS: 81025; 99283; 10120; Q0162; J2003